=== PATIENT | male | born 1955 | race Caucasian/White ===

== ENCOUNTER 2017-08-16 17:47 | Inpatient (IN) | payer MEDICARE, MEDICAID ==
[2017-08-16] VITALS (14 sets, daily range): BP systolic 82–119; BP diastolic 55–82
[~2017-08-16] VITALS: Ht 182.9 cm; Wt 75.3 kg
[~2017-08-16 17:47] MED LIST: AC325T; ARPZ10T; ASP325T; BNZT2T; CLC500CT; CLN.2T; CTLP20T; DVL125C; DXCC100CRX; FAMO20TA13; FLT05NA16; HCT25T; IBP200T; KCL10CCR; LOPE2CAP29; LRT10T; LRZ1T; MILK OF MAGNESIA; OLN5T; QTP25T; SENOKOT 8.6 MG; [UNRECOGNIZED DRUG - CODE]
[2017-08-16] MEDS ORDERED: NS IV 1000 ML 1,000 ML ONE (18:00)
[2017-08-16 18:03] LABS: ABG BASE EXCESS -0.8 MMOL/L (-2.5-2.5); ABG OXYGEN SATURATION 95 % (94-100); ABG PCO2 39 MMHG (35-45); ABG PO2 88 MMHG (79-93); ABG TCO2 24.1 MMOL/L (21.0-31.0)
[2017-08-16 18:04] LABS: ALLENS TEST POSITIVE; INSPIRED O2 10 L; PATIENT TEMP 101.8; VENTILATOR NO
[2017-08-16] MEDS: NS IV 1000 ML 2,500 ML IV PRN ×2 (18:05→19:20)
[2017-08-16 18:15] LABS: BASOPHILS % (AUTO) 0 % (0-10); EOSINOPHILS % (AUTO) 0 % (0-10); HEMATOCRIT 38 % (40-54); HEMOGLOBIN 12.7 G/DL (13.3-17.7); LYMPHOCYTES % (AUTO) 14 % (12-44); MEAN CORPUSCULAR HEMOGLOBIN 30 PG (25-34); MEAN CORPUSCULAR HGB CONC 33 G/DL (32-36); MEAN CORPUSCULAR VOLUME 91 FL (80-99); MEAN PLATELET VOLUME 10.9 FL (7.4-10.4); MONOCYTES # (AUTO) 1.1 X 10^3 (0.0-1.0); MONOCYTES % (AUTO) 15 % (0-12); NEUTROPHILS # (AUTO) 5.1 X 10^3 (1.8-7.8); NEUTROPHILS % (AUTO) 71 % (42-75); PLATELET COUNT 109 10^3/uL (130-400); RED BLOOD COUNT 4.19 10^6/uL (4.35-5.85); RED CELL DISTRIBUTION WIDTH 16.7 % (10.0-14.5); WHITE BLOOD COUNT 7.3 10^3/uL (4.3-11.0)
[2017-08-16] MEDS ORDERED: PIPERACILLIN/TAZOBACTAM 3.375 GM in D5W 100 ML IVPB 100 ML IV ONE (18:15)
[2017-08-16] MEDS ORDERED: RT-ALBUTEROL/IPRATROPIUM 3 ML (DUONEB) VIAL INH ONE (18:15)
[2017-08-16 18:18] LABS: CLARITY,URINE CLEAR; COLOR,URINE YELLOW; GLUCOSE, URINE (UA) NEGATIVE (NEGATIVE); KETONES,URINE 2+ (NEGATIVE); LEUKOCYTE ESTERASE ,URINE 1+ (NEGATIVE); NITRITE,URINE NEGATIVE (NEGATIVE); PH,URINE 6 (5-9); PROTEIN,URINE 2+ (NEGATIVE); UROBILINOGEN,URINE 12 MG/DL (NORMAL)
[2017-08-16] MEDS ORDERED: PIPERACILLIN/TAZO 3.375 GM VIAL (ZOSYN) IV ONE (18:18)
[2017-08-16] MEDS ORDERED: D5W 100 ML IVPB 100 ML IV ONE (18:19)
[2017-08-16 18:29] LABS: ALANINE AMINOTRANSFERASE 29 U/L (0-55); ALBUMIN 3.5 GM/DL (3.2-4.5); ALKALINE PHOSPHATASE 65 U/L (40-136); BUN/CREATININE RATIO 26; CALCIUM 9.4 MG/DL (8.5-10.1); CARBON DIOXIDE 23 MMOL/L (21-32); CHLORIDE 106 MMOL/L (98-107); CREATININE SERUM 0.85 MG/DL (0.60-1.30); GFR ESTIMATED > 60; GLUCOSE 112 MG/DL (70-105); POTASSIUM 4.1 MMOL/L (3.6-5.0); SODIUM 140 MMOL/L (135-145); TOTAL PROTEIN 7.3 GM/DL (6.4-8.2)
[2017-08-16 18:30] LABS: INR 1.3 (0.8-1.4); PROTHROMBIN TIME PATIENT 15.7 SEC (12.2-14.7)
[2017-08-16 18:33] LABS: AMORPHOUS SEDIMENT,UR FEW AMOR URATES /LPF; RBC,URINE 0-2 /HPF; WBC,URINE 0-2 /HPF
[2017-08-16 18:34] LABS: BILIRUBIN,URINE 2+ (NEGATIVE)
--- NOTE | 2017-08-16 18:35 | ED General ---
General Chief Complaint: General Problems/Pain Stated Complaint: FEVER Nursing Triage Note: PT TO [facility] WITH CC OF FEVER AND WEAKNESS. PT LETHARGIC ON ARRIVAL. Nursing Sepsis Screen: No Definite Risk Source of Information: Patient Exam Limitations: No Limitations History of Present Illness Date Seen by Provider: Aug 16, 2017 Time Seen by Provider: 18:00 Initial Comments Here with report of fever and weakness from the skilled nursing. Patient apparently was lethargic on arrival. Seen briefly by outgoing provider and had initiation of BiPAP which seems to have improved his course overall. Patient was reportedly feverish at the skilled nursing and did receive Tylenol. He was 100.1 here and that has subsequently gone down. Does have history of previous stroke and is unable to provide his own history. Seems to be in less distress now per nursing. Grier catheter in place draining dark yellow urine. EMS initiated 1 L normal saline and second liter has been initiated. Timing/Duration: 12 Hours, Getting Worse Severity: Moderate, Severe Associated Systoms: Fever/Chills, Shortness of Air Allergies and Home Medications Allergies Coded Allergies: No Known Drug Allergies (Verified Allergy, Unknown, 07/25/07) Patient Home Medication List Home Medication List Reviewed: Yes Review of Systems Constitutional: see HPI, fever, weakness Unable to complete review of systems due to underlying medical condition and history of previous stroke Past Yirsefo-Gbjzir-Enrqis Hx Past Med/Social Hx: Reviewed Nursing Past Med/Soc Hx Patient Social History Alcohol Use: Denies Use Recreational Drug Use: No (UNKNOWN) Smoking Status: Current Someday Smoker Type Used: Cigarettes Recent Foreign Travel: No Contact w/Someone Who Travel: No Recent Infectious Disease Expo: No Past Medical History Surgeries: Yes (decubitus ulcer debridement) Abdominal (feeding tube placement and removal), Defibrillator, Pacemaker Respiratory: No Cardiac: Yes (LBBB) Atrial Fibrillation, Cardiomyopathy Neurological: Yes (CEREBRAL INFARCTION, RT SIDE WEAKNESS) Stroke Genitourinary: Yes Kidney Infection, UTI-Chronic Gastrointestinal: Yes Musculoskeletal: Yes (GENERALIZED MUSCLE WEAKNESS/RT SIDE WEAKNESS) Diabetes, Non-Insulin dep Cancer: No Psychosocial: Yes (PARANOID) Family Medical History Reviewed Nursing Family Hx Family, past surgical and medical history obtained from records as patient is unable to answer questions. Physical Exam-Suspected Sepsis Physical Exam Vital Signs Vital Signs - First Documented 08/16/17 08/16/17 17:48 17:54 Temp 100.1 Pulse 80 Resp 14 B/P (MAP) 119/66 (83) Pulse Ox 92 O2 Delivery Nasal Cannula O2 Flow Rate 6.00 Capillary Refill : Less Than 3 Seconds Blood Pressure Mean: 94 Height, Weight, BMI Height: 6', 0" Weight: 175lbs oz, [id number] Method:Estimated ,BMI General Appearance: No Apparent Distress, Chronically ill HEENT: PERRL/EOMI, Pharynx Normal Neck: Non Tender, Supple Respiratory: Normal Breath Sounds; No Wheezing; Other (evaluated while patient on BiPAP) Cardiovascular: Regular Rate, Rhythm, No Murmur Gastrointestinal: Non Tender, Soft Back: Normal Inspection, No CVA Tenderness, No Vertebral Tenderness Extremity: Normal Capillary Refill, Normal Range of Motion, Non Tender Neurologic/Psychiatric: Alert, Oriented x3 Skin: normal color, warm/dry Focused Exam Lactate Level 08/16/17 17:52: Lactic Acid Level 2.15*H Lactic Acid Level Laboratory Tests Test 08/16/17 17:52 Lactic Acid Level 2.15 MMOL/L (0.50-2.00) *H Progress/Results/Core Measures Suspected Sepsis Recent Fever Within 48 Hours: Yes Infection Criteria Present: Suspected New Infection New/Unexplained Altered Menta: Yes Sepsis Screen: No Definite Risk SIRS Temperature:97.6 Pulse: 80 Respiratory Rate: 26 Laboratory Tests 08/16/17 17:52: White Blood Count 7.3 Blood Pressure 119 /82 Mean: 94 08/16/17 17:52: Lactic Acid Level 2.15*H Laboratory Tests 08/16/17 17:52: Creatinine 0.85, INR Comment 1.3, Platelet Count 109L, Total Bilirubin 1.0 Results/Orders Lab Results Laboratory Tests Test 08/16/17 17:52 08/16/17 17:53 08/16/17 17:55 Range/Units White Blood Count 7.3 4.3-11.0 10^3/uL Red Blood Count 4.19 L 4.35-5.85 10^6/uL Hemoglobin 12.7 L 13.3-17.7 G/DL Hematocrit 38 L 40-54 % Mean Corpuscular Volume 91 80-99 FL Mean Corpuscular Hemoglobin 30 25-34 PG Mean Corpuscular Hemoglobin Concent 33 32-36 G/DL Red Cell Distribution Width 16.7 H 10.0-14.5 % Platelet Count 109 L 130-400 10^3/uL Mean Platelet Volume 10.9 H 7.4-10.4 FL Neutrophils (%) (Auto) 71 42-75 % Lymphocytes (%) (Auto) 14 12-44 % Monocytes (%) (Auto) 15 H 0-12 % Eosinophils (%) (Auto) 0 0-10 % Basophils (%) (Auto) 0 0-10 % Neutrophils # (Auto) 5.1 1.8-7.8 X 10^3 Lymphocytes # (Auto) 1.0 1.0-4.0 X 10^3 Monocytes # (Auto) 1.1 H 0.0-1.0 X 10^3 Eosinophils # (Auto) 0.0 0.0-0.3 10^3/uL Basophils # (Auto) 0.0 0.0-0.1 10^3/uL Prothrombin Time 15.7 H 12.2-14.7 SEC INR Comment 1.3 0.8-1.4 Activated Partial Thromboplast Time 35 24-35 SEC Sodium Level 140 135-145 MMOL/L Potassium Level 4.1 3.6-5.0 MMOL/L Chloride Level 106 98-107 MMOL/L Carbon Dioxide Level 23 21-32 MMOL/L Anion Gap 11 5-14 MMOL/L Blood Urea Nitrogen 22 H 7-18 MG/DL Creatinine 0.85 0.60-1.30 MG/DL Estimat Glomerular Filtration Rate > 60 BUN/Creatinine Ratio 26 Glucose Level 112 H 70-105 MG/DL Lactic Acid Level 2.15 *H 0.50-2.00 MMOL/L Calcium Level 9.4 8.5-10.1 MG/DL Total Bilirubin 1.0 0.1-1.0 MG/DL Aspartate Amino Transf (AST/SGOT) 54 H 5-34 U/L Alanine Aminotransferase (ALT/SGPT) 29 0-55 U/L Alkaline Phosphatase 65 40-136 U/L Troponin I < 0.30 <0.30 NG/ML Total Protein 7.3 6.4-8.2 GM/DL Albumin 3.5 3.2-4.5 GM/DL Blood Gas Puncture Site RIGHT RADIAL Blood Gas Patient Temperature 101.8 Arterial Blood pH 7.40 7.37-7.43 Arterial Blood Partial Pressure CO2 39 35-45 MMHG Arterial Blood Partial Pressure O2 88 79-93 MMHG Arterial Blood HCO3 23 23-27 MMOL/L Arterial Blood Total CO2 24.1 21.0-31.0 MMOL/L Arterial Blood Oxygen Saturation 95 94-100 % Arterial Blood Base Excess -0.8 -2.5-2.5 MMOL/L Singh Test POSITIVE Blood Gas Ventilator Setting NO Blood Gas Inspired Oxygen 10 L Urine Color YELLOW Urine Clarity CLEAR Urine pH 6 5-9 Urine Specific [place] 1.020 1.016-1.022 Urine Protein 2+ H NEGATIVE Urine Glucose (UA) NEGATIVE NEGATIVE Urine Ketones 2+ H NEGATIVE Urine Nitrite NEGATIVE NEGATIVE Urine Bilirubin 2+ H NEGATIVE Urine Urobilinogen 12 H NORMAL MG/DL Urine Leukocyte Esterase 1+ H NEGATIVE Urine RBC (Auto) 2+ H NEGATIVE Urine RBC 0-2 /HPF Urine WBC 0-2 /HPF Urine Crystals PRESENT H /LPF Urine Amorphous Sediment FEW MAYNOR URATES H /LPF Urine Bacteria NONE /HPF Urine Casts NONE /LPF Urine Mucus NEGATIVE /LPF Urine Culture Indicated NO Medications Given in ED Current Medications Medications Dose Ordered Sig/Haritha Route Start Time Stop Time Status Last Admin Dose Admin Albuterol/ Ipratropium 3 ml ONCE ONCE INH 08/16/17 18:15 08/16/17 18:16 DC 08/16/17 17:50 3 ML Piperacillin Sod/ Tazobactam Sod 3.375 gm/Dextrose 100 ml @ 200 mls/hr ONCE ONCE IV 08/16/17 18:15 08/16/17 18:44 DC 08/16/17 18:26 200 MLS/HR Vital Signs/I&O 08/16/17 08/16/17 08/16/17 08/16/17 17:48 17:50 17:54 18:20 Temp 100.1 97.6 Pulse 80 71 Resp 14 18 B/P (MAP) 119/66 (83) 119/82 (94) Pulse Ox 92 97 92 100 O2 Delivery Nasal Cannula OxyMask Nasal Cannula NIV Bilevel O2 Flow Rate 6.00 10.00 08/16/17 18:21 Pulse 80 Resp 26 Pulse Ox 97 O2 Flow Rate 45.00 Capillary Refill : Less Than 3 Seconds Blood Pressure Mean: 94 Progress Note : Progress Note Seen and evaluated. Second liter of IV fluid has been initiated with normal saline 1 L bolus. Sepsis order set initiated. Blood pressure is improved. Lactic acid noted to be 2.15. We have initiated Zosyn 3.375 g IV after the second blood culture was completed. Patient doing much better on BiPAP. 1834: Heart rate 71 and paced with O2 sat 99 percent and blood pressure 111/71. 1927 : Patient getting another 500 normal saline which will fulfill the 30 mL/kg requirement based on weight totaling 2500 mL. I have discussed the case with Dr. BERRIOS and he accepts patient for admission, inpatient status for left lower lobe pneumonia and sepsis patient is improving currently. Patient's sister is here who is his DP away. I have verified DO NOT RESUSCITATE status with her. PATIENT answers. Patient to be admitted to ICU. Patient's blood pressure remains above 90 systolic and 65 map. Her blood pressure 107/61 with heart rate of 76 and satting 95 percent. Overall doing better. I attest to focused exam at this time. ECG Initial ECG Impression Date: Aug 16, 2017 Initial ECG Impression Time: 18:12 Initial ECG Rate: 79 Comment Atrial sensed ventricular paced rhythm. No evidence of ST elevation NE. No previous available for comparison. Interpreted by me. Diagnostic Imaging Diagonstic Imaging: Xray Plain Films/CT/US/NM/MRI: chest Comments NAME: EDYTA HODGSON MED REC#: [id number] PT STATUS: REG ER : 1955 PHYSICIAN: HASMUKH CHATMAN MD ADMIT DATE: 08/16/17/ER Signed Date of Exam: 08/16/17 CHEST 1 VIEW, AP/PA ONLY INDICATION: Fever and weakness. Time of exam: 6:24 PM No prior studies are available for comparison. Cardiac pacemaker is in place. There is minimal scarring or atelectasis in the left base. Calcified granuloma right upper lobe is noted. No failure is detected. No effusion or pneumothorax is seen. IMPRESSION: Minimal left basilar scarring or atelectasis. The study is otherwise unremarkable. Dictated by: Dictated on workstation # [id number] Dict: 08/16/171834 Trans: 08/16/171846 Interpreted by: ARTUR MOMIN MD Electronically signed by: ARTUR MOMIN MD 08/16/171846 Departure Communication (Admissions) Time/Spoke to Admitting Phy: 19:20 Impression Primary Impression: Left lower lobe pneumonia Qualified Codes: J18.1 - Lobar pneumonia, unspecified organism Additional Impression: Sepsis Qualified Codes: A41.9 - Sepsis, unspecified organism Disposition: ADMITTED INPATIENT Condition: Stable Admissions Decision to Admit Reason: Admit from ER (General) Decision to Admit/Date: Aug 16, 2017 Time/Decision to Admit Time: 19:20 Departure-Patient Inst. Referrals: DAMON CAUSEY DO (PCP/Family) Primary Care Physician KAUSHIK RATLIFF MD Aug 16, 2017 18:35
--- NOTE | 2017-08-16 18:46 | Diagnostic Imaging Report ---
INDICATION: Fever and weakness. Time of exam: 6:24 PM No prior studies are available for comparison. Cardiac pacemaker is in place. There is minimal scarring or atelectasis in the left base. Calcified granuloma right upper lobe is noted. No failure is detected. No effusion or pneumothorax is seen. IMPRESSION: Minimal left basilar scarring or atelectasis. The study is otherwise unremarkable. Dictated by: Dictated on workstation # [id number]
[2017-08-16 20:35] LABS: ABG BASE EXCESS -1.9 MMOL/L (-2.5-2.5); ABG OXYGEN SATURATION 98 % (94-100); ABG PCO2 37 MMHG (35-45); ABG PO2 89 MMHG (79-93); ABG TCO2 23.5 MMOL/L (21.0-31.0)
[2017-08-16 20:37] LABS: ALLENS TEST YES-POS; INSPIRED O2 40%
[2017-08-16 20:38] LABS: PATIENT TEMP 97.7; VENTILATOR NO
[2017-08-16] MEDS ORDERED: VANCOMYCIN 1 GM/NS 250 ML IVPB IV SCH ×2 (21:30)
[2017-08-16] MEDS ORDERED: NS IV 1000 ML 2,381.37 ML IV PRN (21:30)
[2017-08-16] MEDS: NOREPINEPHRINE 4 MG in NS (IVPB) 250 ML IV SCH (21:58)
[2017-08-16] MEDS: NS IV 1000 ML 1,000 ML IV SCH (21:58)
[2017-08-16] MEDS ORDERED: RT-ALBUTEROL/IPRATROPIUM 3 ML (DUONEB) VIAL INH PRN (22:15)
[2017-08-17] VITALS (46 sets, daily range): BP systolic 77–140; BP diastolic 47–83
[2017-08-17] MEDS: PIPERACILLIN/TAZO 3.375 GM/D5W 100 ML IV SCH ×6 (00:15→16:31)
[2017-08-17] MEDS: NS IV 1000 ML 1,000 ML IV SCH ×6 (01:30→20:33)
[2017-08-17 03:37] LABS: BASOPHILS % (AUTO) 0 % (0-10); EOSINOPHILS % (AUTO) 1 % (0-10); HEMATOCRIT 34 % (40-54); LYMPHOCYTES # (AUTO) 1.4 X 10^3 (1.0-4.0); LYMPHOCYTES % (AUTO) 22 % (12-44); MEAN CORPUSCULAR HEMOGLOBIN 30 PG (25-34); MEAN CORPUSCULAR HGB CONC 32 G/DL (32-36); MEAN CORPUSCULAR VOLUME 93 FL (80-99); MEAN PLATELET VOLUME 11.2 FL (7.4-10.4); MONOCYTES # (AUTO) 0.8 X 10^3 (0.0-1.0); MONOCYTES % (AUTO) 12 % (0-12); NEUTROPHILS # (AUTO) 4.1 X 10^3 (1.8-7.8); NEUTROPHILS % (AUTO) 65 % (42-75); PLATELET COUNT 77 10^3/uL (130-400); RED BLOOD COUNT 3.63 10^6/uL (4.35-5.85); WHITE BLOOD COUNT 6.3 10^3/uL (4.3-11.0)
[2017-08-17 03:58] LABS: ALANINE AMINOTRANSFERASE 20 U/L (0-55); ALBUMIN 2.6 GM/DL (3.2-4.5); ALKALINE PHOSPHATASE 47 U/L (40-136); BILIRUBIN,TOTAL 0.8 MG/DL (0.1-1.0); BUN/CREATININE RATIO 26; CALCIUM 8.1 MG/DL (8.5-10.1); CARBON DIOXIDE 20 MMOL/L (21-32); CHLORIDE 113 MMOL/L (98-107); GFR ESTIMATED > 60; GLUCOSE 85 MG/DL (70-105); MAGNESIUM 1.2 MG/DL (1.8-2.4); PHOSPHORUS 2.8 MG/DL (2.3-4.7); SODIUM 141 MMOL/L (135-145); TOTAL PROTEIN 5.5 GM/DL (6.4-8.2)
[2017-08-17] MEDS: KCL 20 MEQ TAB (K-DUR) PO SCH (04:01)
[2017-08-17] MEDS: MAGNESIUM 1 GM/100 ML IVPB 100 ML IV SCH ×5 (04:01→08:08)
[2017-08-17] MEDS: POTASSIUM CL 10MEQ/50ML IVPB 50 ML IV SCH (04:01)
[2017-08-17] MEDS: NOREPINEPHRINE 4 MG in NS (IVPB) 250 ML IV SCH (04:48)
--- NOTE | 2017-08-17 05:49 | Pulmonary Consultation ---
History of Present Illness History of Present Illness Date of Consultation 08/17/17 05:43 Time Seen by Provider: 08:50 Date of Admission History of Present Illness 61yo hx of CVA, dementia, and methamphetamine use presented from [facility] secondary fever and progressive SOB via EMS. PT was found to have LLL pneumonia. HE reqired BiPAP on presentation. Pt has also became hypotensive and is currently requiring Levophed. Allergies and Home Medications Allergies Coded Allergies: No Known Drug Allergies (Verified , 07/25/07) Home Medications Acetaminophen 325 Mg Tablet, 650 MG PO Q6H PRN for PAIN-MILD OR TEMPATURE, ( Reported) Alprazolam 0.5 Mg Tablet, 0.5 MG PO Q8H PRN for ANXIETY, (Reported) Aspirin 325 Mg Tablet.dr, 325 MG PO DAILY, (Reported) Benztropine Mesylate 2 Mg Tablet, 2 MG PO DAILY, (Reported) Carvedilol 6.25 Mg Tablet, 6.25 MG PO DAILY, (Reported) HOLD FO SBP =/<100 DBP =/<50 Divalproex Sodium 500 Mg Tablet.dr, 1,500 MG PO HS, (Reported) TAKES 3 (500MG) TABLETS Guaifenesin/Dextromethorphan 118 Ml Liquid, 10 ML PO Q6H PRN for COUGH, ( Reported) Levetiracetam 500 Mg Tablet, 500 MG PO BID, (Reported) Loratadine 10 Mg Tablet, 10 MG PO DAILY PRN for CONGESTION, (Reported) Mag Hydrox/Aluminum Hyd/Simeth 355 Ml Oral.susp, 30 ML PO Q4H PRN for HEARTBURN, (Reported) Metformin HCl 1,000 Mg Tablet, 1,000 MG PO BID, (Reported) Olanzapine 15 Mg Tablet, 15 MG PO DAILY, (Reported) Omeprazole 20 Mg Capsule.dr, 20 MG PO DAILY, (Reported) Polyethylene Glycol 3350 17 Gm Powd.pack, 17 GM PO DAILY, (Reported) Sertraline HCl 100 Mg Tablet, 100 MG PO DAILY, (Reported) Past Pnjeydx-Jpczjn-Zwzifw Hx Past Med/Social Hx: Reviewed Nursing Past Med/Soc Hx Patient Social History Alcohol Use: Denies Use Recreational Drug Use: Yes Drug of Choice: HX OF METH USE Smoking Status: Current Someday Smoker Type Used: Cigarettes Recent Foreign Travel: No Contact w/Someone Who Travel: No Recent Infectious Disease Expo: No Recent Hopitalizations: Yes (APRIL 2017 IN [place]) Immunizations Up To Date Date of Pneumonia Vaccine: Nov 07, 2016 Seasonal Allergies Seasonal Allergies: No Past Medical History Surgeries: Yes (decubitus ulcer debridement) Abdominal (feeding tube placement and removal), Defibrillator, Pacemaker Respiratory: Yes Pneumonia Currently Using CPAP: No Currently Using BIPAP: No Cardiac: Yes (LBBB) Atrial Fibrillation, Cardiomyopathy Neurological: Yes (CEREBRAL INFARCTION, RT SIDE WEAKNESS) Stroke Sexually Transmitted Disease: No HIV/AIDS: No Genitourinary: Yes Kidney Infection, UTI-Chronic Gastrointestinal: Yes (FEEDING TUBE (INSTERTED AND REMOVED)) Musculoskeletal: Yes (GENERALIZED MUSCLE WEAKNESS/RT SIDE WEAKNESS) Endocrine: Yes Diabetes, Non-Insulin dep HEENT: No Cancer: No Psychosocial: Yes (PARANOID) Integumentary: No Blood Disorders: No (HX OF HEP C) Adverse Reaction/Blood Tranf: No Family Medical History Reviewed Nursing Family Hx Family, past surgical and medical history obtained from records as patient is unable to answer questions. Review of Systems Time Seen by Provider: 05:48 Exam Exam Vital Signs Date Time Temp Pulse Resp B/P (MAP) Pulse Ox O2 Delivery O2 Flow Rate FiO2 08/17/17 05:30 60 14 105/63 (77) 94 High Flow N/C 2.00 08/17/17 05:15 59 18 93/58 (70) 95 High Flow N/C 2.00 08/17/17 05:00 59 17 119/68 (85) 97 High Flow N/C 2.00 08/17/17 04:45 60 13 92/67 (75) 99 High Flow N/C 2.00 08/17/17 04:30 60 9 86/56 (66) 96 High Flow N/C 2.00 08/17/17 04:15 60 11 104/61 (75) 97 High Flow N/C 2.00 08/17/17 04:00 60 16 101/62 (75) 99 High Flow N/C 2.00 08/17/17 03:56 99 High Flow N/C 2.00 08/17/17 03:54 97.3 08/17/17 03:45 60 18 97/68 (78) 98 High Flow N/C 2.00 08/17/17 03:30 60 13 99/64 (76) 99 High Flow N/C 2.00 08/17/17 03:15 60 12 102/62 (75) 99 High Flow N/C 2.00 08/17/17 03:00 60 15 96/60 (72) 99 High Flow N/C 2.00 08/17/17 02:45 62 14 88/61 (70) 98 High Flow N/C 2.00 08/17/17 02:30 70 12 89/59 (69) 97 High Flow N/C 2.00 08/17/17 02:15 70 14 99/59 (72) 96 High Flow N/C 2.00 08/17/17 02:00 62 19 103/63 (76) 95 High Flow N/C 2.00 08/17/17 01:45 60 22 100/61 (74) 94 High Flow N/C 2.00 08/17/17 01:30 59 10 98/58 (71) 95 High Flow N/C 2.00 08/17/17 01:15 60 15 88/55 (66) 97 High Flow N/C 2.00 08/17/17 01:00 60 08/17/17 01:00 60 17 86/59 (68) 95 High Flow N/C 2.00 08/17/17 00:45 60 18 88/49 (62) 96 High Flow N/C 2.00 08/17/17 00:30 60 16 94/57 (69) 98 High Flow N/C 2.00 08/17/17 00:15 60 13 90/55 (67) 99 High Flow N/C 2.00 08/17/17 00:00 60 9 94/59 (71) 98 High Flow N/C 2.00 08/16/17 23:49 97.3 08/16/17 23:46 98 High Flow N/C 2.00 08/16/17 23:45 60 12 101/69 (80) 98 High Flow N/C 2.00 08/16/17 23:30 60 10 107/69 (82) 98 High Flow N/C 2.00 08/16/17 23:15 60 10 108/75 (86) 98 High Flow N/C 2.00 08/16/17 23:00 60 12 94/65 (75) 96 High Flow N/C 2.00 08/16/17 22:45 60 12 94/67 (76) 95 High Flow N/C 2.00 08/16/17 22:30 71 11 82/55 (64) 96 High Flow N/C 2.00 08/16/17 22:15 60 14 103/61 (75) 95 High Flow N/C 2.00 08/16/17 22:14 High Flow N/C 2.00 08/16/17 22:13 94 High Flow N/C 2.00 08/16/17 22:13 96 High Flow N/C 4.00 08/16/17 22:00 67 10 97/61 (73) 96 High Flow N/C 4.00 08/16/17 21:45 67 13 109/61 (77) 97 High Flow N/C 4.00 08/16/17 21:30 60 13 99/63 (75) 99 High Flow N/C 4.00 08/16/17 21:15 60 13 106/64 (78) 99 High Flow N/C 4.00 08/16/17 21:00 100 High Flow N/C 6.00 08/16/17 21:00 60 100 08/16/17 21:00 60 13 107/67 (80) 100 High Flow N/C 4.00 08/16/17 20:44 68 08/16/17 20:40 98.3 89 102/63 (76) High Flow N/C 6.00 08/16/17 20:34 97.7 70 25 97/81 97 NIV Bilevel 08/16/17 19:36 78 20 99 45.00 08/16/17 18:21 80 26 97 45.00 08/16/17 18:20 97.6 71 18 119/82 (94) 100 NIV Bilevel 08/16/17 17:54 100.1 80 14 119/66 (83) 92 Nasal Cannula 08/16/17 17:50 97 OxyMask 10.00 08/16/17 17:48 92 Nasal Cannula 6.00 I & O 08/17/17 07:00 Intake Total 7950 ml Output Total 650 ml Balance 7300 ml PULEXAM Height: 6', 0.00" Weight: 165lbs 0.0oz, [id number] Method:Estimated ,21.7BMI General Appearance: No Apparent Distress, Chronically ill HEENT: PERRL/EOMI, Pharynx Normal Neck: Non Tender, Supple Respiratory: Normal Breath Sounds; No Wheezing; Other (evaluated while patient on BiPAP) Cardiovascular: Regular Rate, Rhythm, No Murmur Capillary Refill: Less Than 3 Seconds Extremity: Normal Capillary Refill, Normal Range of Motion, Non Tender Neurologic/Psychiatric: Alert, Oriented x3 Results Lab Laboratory Tests 08/16/17 17:52 08/17/17 03:05 Assessment/Plan Assessment/Plan -Pneumonia LLL on admission - with severe sepsis -question aspiration pneumonia -Consult speech for swallow eval -Zosyn and vanco -Foy culture -Hypotension -Levopohed -- will D/C -IVF metabolic lactic acidosis -IVF Thrombocytopenia -MOnitor HX of CVA - pt has had PEG tube in the past. 255 NEELAM BENAVIDEZ DO Aug 17, 2017 05:49
[2017-08-17] MEDS ORDERED: HYDROCORTISONE 100 MG/2 ML (Solu-CORTEF) VIAL IV ONE (06:15)
[2017-08-17] MEDS ORDERED: NS IV 1000 ML 500 ML IV SCH (06:15)
[2017-08-17] MEDS ORDERED: NS IV 500 ML 500 ML ONE (06:21)
[2017-08-17] MEDS ORDERED: HYDROCORTISONE 100 MG/2 ML (Solu-CORTEF) VIAL ONE (06:22)
--- NOTE | 2017-08-17 07:40 | History & Physical-Hospitalist ---
History of Present Illness HPI/Chief Complaint Pt is a 61yoCm with a PMH of CVA with right sided deficit who presented to the ER for AMS. He groans only on exam to physicial stimuli so is unable to provide me any history. All history if obtained from review of records and from discussion with his NH. At baseline he is nearly aphasic but is oriented x2. He does not stand and is dependent on a clemente. No concerns about aspiration from nursing staff there. The nurse I spoke to believes he was febrile and "not acting right" but was uable to clarify what that meant. There is a note she read to me that stated he was noticed to have a cough and fever yesterday and when the digital production artist physician was called he was directed to the ER. Per NH his normal blood pressure range is in the 90-100s systolic and 50s-60s diastolic. Source: patient Date Seen 08/17/17 Time Seen by Provider: 07:20 Attending Physician Reilly Marino MD PCP Pito Gallardo DO Referring Physician Date of Admission Aug 16, 2017 at 19:40 Home Medications & Allergies Home Medications Reviewed patient Home Medication Reconciliation performed by pharmacy medication reconciliations broadcast technician and/or nursing. Patients Allergies have been reviewed. Allergies Allergies Coded Allergies No Known Drug Allergies (Verified07/25/07) Past Hjhzgzs-Joqgcz-Ckwxlm Hx Past Med/Social Hx: Reviewed Nursing Past Med/Soc Hx Patient Social History Employed/Student: retired Alcohol Use: Denies Use Recreational Drug Use: Yes Drug of Choice: HX OF METH USE Smoking Status: Current Someday Smoker Type Used: Cigarettes Physical Abuse Screen: No Sexual Abuse: No Recent Foreign Travel: No Contact w/other who traveled: No Recent Hopitalizations: Yes (APRIL 2017 IN [place]) Recent Infectious Disease Expo: No Immunizations Up To Date Date of Pneumonia Vaccine: Nov 07, 2016 Seasonal Allergies Seasonal Allergies: No Past Medical History Surgeries: Abdominal (feeding tube placement and removal), Defibrillator, Pacemaker Currently Using CPAP: No Currently Using BIPAP: No Cardiac: Atrial Fibrillation, Cardiomyopathy Neurological: Stroke Sexually Transmitted Disease: No HIV/AIDS: No Genitourinary: Kidney Infection, UTI-Chronic Endocrine: Diabetes, Non-Insulin dep History of Blood Disorders: No (HX OF HEP C) Adverse Reaction to Blood [place]: No Family History Reviewed Nursing Family Hx Family, past surgical and medical history obtained from records as patient is unable to answer questions. Review of Systems ROS-Unable to Obtain: clinical condition Constitutional: see HPI Physical Exam Physical Exam Vital Signs Vital Signs - First Documented 08/16/17 08/16/17 17:48 17:54 Temp 100.1 Pulse 80 Resp 14 B/P (MAP) 119/66 (83) Pulse Ox 92 O2 Delivery Nasal Cannula O2 Flow Rate 6.00 Capillary Refill : Less Than 3 Seconds Height, Weight, BMI Height: 6', 0.00" Weight: 165lbs 0.0oz, [id number] Method:Estimated ,21.7BMI General Appearance: Chronically ill, Mild Distress Respiratory: No Accessory Muscle Use, No Respiratory Distress, Rhonci Cardiovascular: Regular Rate, Rhythm, No Murmur Gastrointestinal: Normal Bowel Sounds, Non Tender, Soft Extremity: Normal Capillary Refill, Non Tender, No Calf Tenderness, No Pedal Edema Neurologic/Psychiatric: Other (arouses to physicial stimuli otherwise somnolent ) Skin: Normal Color; No Mottled, No Petechia Results Results/Procedures Labs Laboratory Tests 08/16/17 17:52 08/17/17 03:05 Patient resulted labs reviewed. Imaging: Reviewed Imaging Films, Reviewed Imaging Report Assessment/Plan Admission Diagnosis Septic Shock Admission Status: Inpatient Order (span 2 midnights) Reason for Inpatient Admission: pressors, ICU stay Diagnosis/Problems Diagnosis/Problems (1) Septic shock Assessment & Plan: RML PNA on XR from this AM Progressed to shock overnight requiring levophed to maintain BP Cultures drawn in Er awaiting results (2) CVA, old, aphasia Assessment & Plan: nearly aphasia at baseline MS reports he mostly grunts or shakes head yes and no has right sided weakness (3) CHF (congestive heart failure) Status: Chronic Assessment & Plan: Unknown if systolic or diastolic Monitor for signs of heart failure given fluid bolus Has defibrillator in place Discussed with sister- has history of [place] Qualifiers: Heart failure type: unspecified Heart failure chronicity: chronic Qualified Codes: I50.9 - Heart failure, unspecified (4) Counseling regarding end of life decision making Assessment & Plan: Discussed with sister He has been progressively getting worse of the past year and has lost around 50lbs since april Discussed critical illness currently and if no improvement consider comfort measures only Would likely benefit from hospice as outpatient Palliative care consulted, appreciate assistance Clinical Quality Measures DVT/VTE Risk/Contraindication: Risk Factor Score Per Nursin RFS Level Per Nursing on Admit: 4+=Very High JUSTINO SANDERS MD Aug 17, 2017 07:40
[2017-08-17] MEDS: RT-ALBUTEROL/IPRATROPIUM 3 ML (DUONEB) VIAL INH SCH ×4 (07:50→19:10)
--- NOTE | 2017-08-17 08:52 | Diagnostic Imaging Report ---
INDICATION: Followup pneumonia. TIME OF EXAM: 3:07 AM Comparison is made with prior exam from one day earlier. FINDINGS: The heart size is stable. Cardiac pacemaker remains in place. There is some increasing infiltrate or atelectasis in the right base medially. Right hemidiaphragm is mildly elevated. The mid and upper lung abreu are clear. No effusion or pneumothorax is seen. IMPRESSION: Increasing infiltrate or atelectasis in the right base when compared with examination one day earlier. Dictated by: Dictated on workstation # [id number]
[2017-08-17] MEDS: VANCOMYCIN 1250 MG/NS 250 ML IVPB IV SCH ×4 (08:56→20:32)
[2017-08-17] MEDS: ENOXAPARIN 40 MG/0.4 ML (LOVENOX) SYR SC SCH (09:06)
[2017-08-17] MEDS ORDERED: MAG355OR16 PO (09:38)
[2017-08-17] MEDS ORDERED: OMEP20CA12 PO (09:38)
[2017-08-17] MEDS ORDERED: OLAN15TA3 PO (09:38)
[2017-08-17] MEDS ORDERED: DIVA-76 PO (09:38)
[2017-08-17] MEDS ORDERED: BENZ2TAB6 PO (09:38)
[2017-08-17] MEDS ORDERED: METF10002 PO (09:38)
[2017-08-17] MEDS ORDERED: ASPI325T32 PO (09:38)
[2017-08-17] MEDS ORDERED: CARV6.25 PO (09:38)
[2017-08-17] MEDS ORDERED: ACET325T49 PO (09:38)
[2017-08-17] MEDS ORDERED: POLY17PO6 PO (09:38)
[2017-08-17] MEDS ORDERED: SERT100T PO (09:38)
[2017-08-17] MEDS ORDERED: LEVE500T99 PO (09:38)
[2017-08-17] MEDS ORDERED: LORA10TA7 PO (09:38)
[2017-08-17] MEDS ORDERED: ALPR0.5T PO (09:38)
[2017-08-17] MEDS ORDERED: GUAI-557 PO (09:38)
[2017-08-17] MEDS ORDERED: NICOTINE 21 MG (NICODERM) PATCH ONE (20:26)
[2017-08-17] MEDS ORDERED: NICOTINE 21 MG (NICODERM) PATCH TD ONE (20:30)
[2017-08-18] VITALS (15 sets, daily range): BP systolic 90–139; BP diastolic 58–90
[2017-08-18] MEDS: NOREPINEPHRINE 4 MG in NS (IVPB) 250 ML IV SCH (01:30)
[2017-08-18] MEDS: PIPERACILLIN/TAZO 3.375 GM/D5W 100 ML IV SCH ×6 (01:36→16:24)
[2017-08-18] MEDS: NS IV 1000 ML 1,000 ML IV SCH ×2 (01:36→04:33)
[2017-08-18 04:06] LABS: BASOPHILS % (AUTO) 0 % (0-10); EOSINOPHILS % (AUTO) 1 % (0-10); HEMATOCRIT 33 % (40-54); HEMOGLOBIN 10.9 G/DL (13.3-17.7); LYMPHOCYTES # (AUTO) 1.3 X 10^3 (1.0-4.0); LYMPHOCYTES % (AUTO) 24 % (12-44); MEAN CORPUSCULAR HEMOGLOBIN 30 PG (25-34); MEAN CORPUSCULAR HGB CONC 33 G/DL (32-36); MEAN CORPUSCULAR VOLUME 92 FL (80-99); MONOCYTES # (AUTO) 0.5 X 10^3 (0.0-1.0); MONOCYTES % (AUTO) 10 % (0-12); NEUTROPHILS # (AUTO) 3.6 X 10^3 (1.8-7.8); NEUTROPHILS % (AUTO) 66 % (42-75); PLATELET COUNT 99 10^3/uL (130-400); RED BLOOD COUNT 3.59 10^6/uL (4.35-5.85); RED CELL DISTRIBUTION WIDTH 16.4 % (10.0-14.5); WHITE BLOOD COUNT 5.5 10^3/uL (4.3-11.0)
[2017-08-18 04:26] LABS: ALANINE AMINOTRANSFERASE 18 U/L (0-55); ALBUMIN 2.6 GM/DL (3.2-4.5); ALKALINE PHOSPHATASE 48 U/L (40-136); BILIRUBIN,TOTAL 0.6 MG/DL (0.1-1.0); BUN/CREATININE RATIO 16; CALCIUM 8.1 MG/DL (8.5-10.1); CARBON DIOXIDE 19 MMOL/L (21-32); CHLORIDE 113 MMOL/L (98-107); CREATININE SERUM 0.67 MG/DL (0.60-1.30); GFR ESTIMATED > 60; GLUCOSE 124 MG/DL (70-105); MAGNESIUM 1.7 MG/DL (1.8-2.4); PHOSPHORUS 1.8 MG/DL (2.3-4.7); POTASSIUM 3.2 MMOL/L (3.6-5.0); SODIUM 139 MMOL/L (135-145); TOTAL PROTEIN 5.6 GM/DL (6.4-8.2)
[2017-08-18] MEDS ORDERED: NS IV 1000 ML 1,000 ML IV SCH (04:34)
[2017-08-18] MEDS: MAGNESIUM 1 GM/100 ML IVPB 100 ML IV SCH ×3 (04:43→06:03)
[2017-08-18] MEDS: POTASSIUM CL 10MEQ/50ML IVPB 50 ML IV SCH (04:43)
[2017-08-18] MEDS: KCL 20 MEQ TAB (K-DUR) PO SCH (04:44)
[2017-08-18] MEDS ORDERED: POTASSIUM PHOSPHATE INJ 30 MM in NS (IVPB) 250 ML IV ONE (05:45)
--- NOTE | 2017-08-18 05:46 | Pulmonary Progress Note ---
Subjective Time Seen by Provider: 05:52 Subjective/Events-last exam Pt is doing better. No complications noted. Sepsis Event Evaluation Height, Weight, BMI Height: 6'0.00" Weight: 165lbs.0.0oz.74.935426dg; 21.7 BMI Method:Estimated Focused Exam Lactate Level 08/16/17 17:52: Lactic Acid Level 2.15*H 08/16/17 20:20: Lactic Acid Level 1.56 Exam Exam Vital Signs Date Time Temp Pulse Resp B/P (MAP) Pulse Ox O2 Delivery O2 Flow Rate FiO2 08/18/17 04:27 98.3 08/18/17 04:00 95 Room Air 08/18/17 03:00 65 13 124/67 (86) 94 Room Air 08/18/17 02:00 59 14 110/66 (81) 94 Room Air 08/18/17 01:00 60 08/18/17 01:00 60 15 109/63 (78) Room Air 08/18/17 00:00 60 12 106/58 (74) 91 Room Air 08/18/17 00:00 97.8 08/18/17 00:00 92 Room Air 08/17/17 23:00 60 16 101/55 (70) 91 Room Air 08/17/17 22:00 64 13 107/62 (77) 95 Room Air 08/17/17 21:00 64 21 104/54 (71) 93 Room Air 08/17/17 20:00 64 16 95/54 (68) 94 Room Air 08/17/17 20:00 92 Room Air 08/17/17 19:40 98.1 Room Air 08/17/17 19:10 92 08/17/17 19:00 70 08/17/17 19:00 67 14 93/75 (81) 89 Room Air 08/17/17 18:00 77 23 109/83 (92) 94 Room Air 08/17/17 17:46 Room Air 08/17/17 17:00 60 16 107/65 (79) 94 High Flow N/C 2.00 08/17/17 16:05 97.8 08/17/17 16:00 59 14 89/56 (67) 92 High Flow N/C 2.00 08/17/17 16:00 94 High Flow N/C 2.00 08/17/17 15:00 73 14 103/63 (76) 95 High Flow N/C 2.00 08/17/17 14:59 94 High Flow N/C 2.00 08/17/17 14:00 60 16 103/64 (77) 94 High Flow N/C 2.00 08/17/17 13:00 60 08/17/17 13:00 68 14 96/62 (73) 96 High Flow N/C 2.00 08/17/17 12:15 95 High Flow N/C 2.00 08/17/17 12:07 97.9 08/17/17 12:00 71 14 86/51 (63) 92 High Flow N/C 2.00 08/17/17 11:19 95 High Flow N/C 2.00 08/17/17 11:00 71 16 91/55 (67) 94 High Flow N/C 2.00 08/17/17 10:00 60 14 86/54 (65) 94 High Flow N/C 2.00 08/17/17 09:00 65 12 100/59 (73) 95 High Flow N/C 2.00 08/17/17 08:00 78 14 122/71 (88) 96 High Flow N/C 2.00 08/17/17 08:00 92 High Flow N/C 2.00 08/17/17 07:51 94 High Flow N/C 2.00 08/17/17 07:50 97.3 70 14 124/71 (88) 92 High Flow N/C 2.00 08/17/17 07:00 59 20 85/49 (61) 92 High Flow N/C 2.00 08/17/17 06:59 59 08/17/17 06:45 62 15 85/51 (62) 95 High Flow N/C 2.00 08/17/17 06:30 60 12 86/50 (62) 96 High Flow N/C 2.00 08/17/17 06:15 60 13 77/47 (57) 93 High Flow N/C 2.00 08/17/17 06:00 59 9 85/50 (62) 95 High Flow N/C 2.00 08/17/17 05:45 59 17 109/62 (78) 95 High Flow N/C 2.00 I & O 08/18/17 07:00 Intake Total 2912.5 ml Output Total 1475 ml Balance 1437.5 ml Height & Weight Height: 6'0.00" Weight: 165lbs.0.0oz.74.546407ev; 21.7 BMI Method:Estimated General Appearance: No Apparent Distress, WD/WN, Chronically ill HEENT: PERRL/EOMI, Pharynx Normal Neck: Non Tender, Supple Respiratory: No Accessory Muscle Use, No Respiratory Distress, Rhonci Cardiovascular: Regular Rate, Rhythm, No Murmur Capillary Refill: Less Than 3 Seconds Extremity: Normal Capillary Refill, Non Tender, No Calf Tenderness, No Pedal Edema Neurologic/Psychiatric: Other (arouses to physicial stimuli otherwise somnolent ) Skin: Normal Color; No Mottled, No Petechia Lymphatic: No Adenopathy Results Lab Laboratory Tests 08/16/17 17:52 08/17/17 03:05 08/18/17 03:10 Assessment/Plan Assessment/Plan -Pneumonia LLL on admission - with severe sepsis -question aspiration pneumonia -pt passed bedside swallow eval -Zosyn and vanco -Foy culture -Hypotension-- resolved metabolic lactic acidosis -IVF hypophos/hypokalemia -replace Thrombocytopenia -MOnitor HX of CVA - pt has had PEG tube in the past. Pt is doing better will transfer to the 4th floor. NEELAM BENAVIDEZ DO Aug 18, 2017 05:46
[2017-08-18] MEDS ORDERED: KCL 20 MEQ TAB (K-DUR) PO ONE ×2 (06:00→08:00)
[2017-08-18] MEDS: RT-ALBUTEROL/IPRATROPIUM 3 ML (DUONEB) VIAL INH SCH ×4 (06:17→19:58)
[2017-08-18] MEDS ORDERED: TROUGH ORDER-PHARMACY XX ONE (08:00)
[2017-08-18] MEDS: NICOTINE 21 MG (NICODERM) PATCH TD SCH (08:07)
[2017-08-18] MEDS: ENOXAPARIN 40 MG/0.4 ML (LOVENOX) SYR SC SCH (08:07)
--- NOTE | 2017-08-18 12:22 | Diagnostic Imaging Report ---
INDICATION: Pneumonia, sepsis.. TECHNIQUE: Single view chest 3:30 AM. CORRELATION STUDY: 08/17/2017 FINDINGS: Left-sided pacemaker is present. Heart size is enlarged. Mediastinum is prominent. Vasculature appears improved. The perihilar infiltrates and/or edema also is improved and diminished but does persist. Slightly more focal infiltrate-like density in the medial right lung base also slightly improved. IMPRESSION: 1. Vascular congestion overall improved from prior study. Additionally, improved aeration of the lung abreu with perihilar and basilar infiltrates and/or edema having slightly improved. Dictated by: Dictated on workstation # [id number]
[2017-08-18] MEDS: VANCOMYCIN 1250 MG/NS 250 ML IVPB IV SCH ×2 (13:54)
--- NOTE | 2017-08-18 14:28 | Progress Note-Hospitalist ---
Subjective HPI/CC On Admission Date Seen by Provider: Aug 18, 2017 Time Seen by Provider: 07:20 Pt is a 61yoCm with a PMH of CVA with right sided deficit who presented to the ER for AMS. He groans only on exam to physicial stimuli so is unable to provide me any history. All history if obtained from review of records and from discussion with his NH. At baseline he is nearly aphasic but is oriented x2. He does not stand and is dependent on a clemente. No concerns about aspiration from nursing staff there. The nurse I spoke to believes he was febrile and "not acting right" but was uable to clarify what that meant. There is a note she read to me that stated he was noticed to have a cough and fever yesterday and when the learning operations specialist physician was called he was directed to the ER. Per NH his normal blood pressure range is in the 90-100s systolic and 50s-60s diastolic. Subjective/Events-last exam Pt much more alert today. Answers few questions but did state "yes" to feeling better. Shook head no about other concerns. Focused Exam Lactate Level 08/16/17 17:52: Lactic Acid Level 2.15*H 08/16/17 20:20: Lactic Acid Level 1.56 Objective Exam Vital Signs Vital Signs Date Time Temp Pulse Resp B/P (MAP) Pulse Ox O2 Delivery O2 Flow Rate FiO2 08/18/17 14:11 95 Room Air 08/18/17 13:00 124 32 08/18/17 07:00 98.0 08/18/17 06:19 2.00 Capillary Refill : Less Than 3 Seconds General Appearance: No Apparent Distress, Chronically ill Respiratory: Lungs Clear, No Respiratory Distress Cardiovascular: Regular Rate, Rhythm, No Murmur Gastrointestinal: Normal Bowel Sounds, Soft Neurologic/Psychiatric: Alert, Disoriented (as baseline) Results/Procedures Lab Laboratory Tests 08/18/17 03:10 Patient resulted labs reviewed. Imaging: Reviewed Imaging Films, Reviewed Imaging Report Assessment/Plan Assessment and Plan Assess & Plan/Chief Complaint Septic Shock Critical Care Critical Care: Critically Ill Patient Diagnosis/Problems Diagnosis/Problems (1) Septic shock Assessment & Plan: RML PNA on XR Shock resolved- off pressors since yesterday MRSA screen negative- will DC Vanc Continue Zosyn Blood cultures growing coag neg staph in one tube-likely contaminate (2) CVA, old, aphasia Assessment & Plan: nearly aphasic at baseline per NH NH reports he mostly grunts or shakes head yes and no Said some words today has right sided weakness (3) CHF (congestive heart failure) Status: Chronic Assessment & Plan: Unknown if systolic or diastolic Monitor for signs of heart failure given fluid bolus Has defibrillator in place Discussed with sister- has history of [place] Qualifiers: Heart failure type: unspecified Heart failure chronicity: chronic Qualified Codes: I50.9 - Heart failure, unspecified (4) Counseling regarding end of life decision making Assessment & Plan: Discussed with sister He has been progressively getting worse of the past year and has lost around 50lbs since april Discussed critical illness currently and if no improvement consider comfort measures only Would likely benefit from hospice as outpatient Palliative care consulted, appreciate assistance Clinical Quality Measures DVT/VTE Risk/Contraindication: Risk Factor Score Per Nursin RFS Level Per Nursing on Admit: 4+=Very High JUSTINO SANDERS MD Aug 18, 2017 2:28 pm
--- NOTE | 2017-08-18 15:40 | Physical Therapy Evaluation ---
PT Evaluation-General Medical Diagnosis Admission Date Aug 16, 2017 at 19:40 Medical Diagnosis: LLL pneumonia; sepsis Onset Date: Aug 16, 2017 Therapy Diagnosis Therapy Diagnosis: weakness Height/Weight Height (Feet): 6 Height (Inches): 0.00 Weight (Pounds): 170 Weight (Ounces): 0.0 Precautions Precautions/Isolations: Fall Prevention, Standard Precautions Weight Bear Status Right Lower Extremity: Right Weight Bearing/Tolerated Left Lower Extremity: Left Weight Bearing/Tolerated Referral Physician: [place] Reason for Referral: Evaluation/Treatment Medical History Pertinent Medical History: CVA (rigth side weakness) Current History Admitted with LLL pneumonia and sepsis Reviewed History: Yes Social History Home: Snf Prior/[facility] Prior Level of Function Functional [place] Measure 0=Not Assessed/NA 4=Minimal Assistance 1=Total Assistance 5=Supervision or Setup 2=Maximal Assistance 6=Modified [place] 3=Moderate Assistance 7=Complete [place] Pt is wheelchair bound. Physician note reports pt is a clemente transfer; son reported to nursing that in the past he has been able to perform a SPT. PT Evaluation-Current Subjective Agrees to participate with therapy. Objective Patient Orientation: Person, Confused, Non-Verbal/Aphasic (one word answers) Problem Solving: Fair Attachments: Grier Catheter, IV ROM/Strength ROM Lower Extremities Left LE WNL; right LE WNL AAROM Strength Lower Extremities Left LE appears to be functional; unable to specifically test right . Integumentary/Posture Integumentary refer to nursing notes. Bowel Incontinence: Yes Bladder Incontinence: Grier Cath Posture rounded shoulders and head forward in sitting; heavy lean to his left in sitting. Neuromuscular (Tone, Coordination, Reflexes) impaired on the right with intentional movement; R U/LE tremors noted as well with intentional movements as well as L LE. Pt has normal coordinated movement with the left UE Sensory Vision: Functional Hearing: Functional Sensation Right Lower Extremit: Impaired Sensation Left Lower Extremity: Impaired Transfers Functional [place] Measure 0=Not Assessed/NA 4=Minimal Assistance 1=Total Assistance 5=Supervision or Setup 2=Maximal Assistance 6=Modified [place] 3=Moderate Assistance 7=Complete [place] Transfers (B, C, W/C) (FIM): 1 Scootin Rollin Supine to/from Sit: 1 Pt requires assist of 2 for all bed mobility and to sit EOB. Max assist to maintain EOB balance and leans heavilty to the left. Tremors noted in sitting initially, settle after a few minutes but retropulsive as well. Unable to attempt to stand due to poor sitting balance. Balance Sitting Static: Poor Sitting Dynamic: Poor Treatment Pt sat EOB with dep assist to transition to this point. Max assist to maintain sitting EOB; unable to attempt standing. Assessment/Needs Presents with impaired functional mobility. Likely he is near or at his baseline based on review of chart. He will benefit from additional assessment to ensure mobility needs are met while he is hospitalized and address positioning or other services that may be indicated. Rehab Potential: Guarded PT Business Solutions Consultant Goals Business Solutions Consultant Goals PT Retirement Goals Time Frame: Aug 24, 2017 Transfers (B,C,W/C) (FIM): 2 PT Plan Problem List Problem List: Activity Tolerance, Functional Strength, Safety, Transfer, Bed Mobility Treatment/Plan Treatment Plan: Continue Plan of Care Treatment Plan: Bed Mobility, Education, Functional Activity Adi, Functional Strength, Safety, Transfers Treatment Duration: Aug 24, 2017 Frequency: 5 times per week Estimated Hrs Per Day: .25 hour per day Patient and/or Family Agrees t: Yes Safety Risks/Education Patient Education: Safety Issues Teaching Recipient: Patient Teaching Methods: Discussion Response to Teaching: Reinforcement Needed Time/GCodes Time In: 1510 Time Out: 1530 Total Billed Treatment Time: 20 Total Billed Treatment visit EVL 20 BRAD ROGERS PT Aug 18, 2017 15:40
[2017-08-19] MEDS: PIPERACILLIN/TAZO 3.375 GM/D5W 100 ML IV SCH ×2 (00:02)
[2017-08-19 00:21] VITALS: BP 117/70
[2017-08-19] MEDS ORDERED: VANCOMYCIN 1250 MG/NS 250 ML IVPB IV SCH ×2 (02:00)
[2017-08-19 04:20] VITALS: BP 123/77
[2017-08-19 06:21] LABS: BASOPHILS % (AUTO) 0 % (0-10); EOSINOPHILS # (AUTO) 0.1 10^3/uL (0.0-0.3); EOSINOPHILS % (AUTO) 1 % (0-10); HEMATOCRIT 33 % (40-54); HEMOGLOBIN 10.9 G/DL (13.3-17.7); LYMPHOCYTES # (AUTO) 1.4 X 10^3 (1.0-4.0); LYMPHOCYTES % (AUTO) 27 % (12-44); MEAN CORPUSCULAR HEMOGLOBIN 30 PG (25-34); MEAN CORPUSCULAR HGB CONC 33 G/DL (32-36); MEAN CORPUSCULAR VOLUME 90 FL (80-99); MEAN PLATELET VOLUME 10.4 FL (7.4-10.4); MONOCYTES # (AUTO) 0.8 X 10^3 (0.0-1.0); MONOCYTES % (AUTO) 16 % (0-12); NEUTROPHILS # (AUTO) 2.9 X 10^3 (1.8-7.8); NEUTROPHILS % (AUTO) 56 % (42-75); PLATELET COUNT 131 10^3/uL (130-400); RED BLOOD COUNT 3.68 10^6/uL (4.35-5.85); RED CELL DISTRIBUTION WIDTH 16.6 % (10.0-14.5); WHITE BLOOD COUNT 5.2 10^3/uL (4.3-11.0)
[2017-08-19] MEDS ORDERED: KCL 20 MEQ TAB (K-DUR) PO ONE ×2 (06:30→06:38)
[2017-08-19] MEDS ORDERED: FUROSEMIDE 40 MG/4 ML INJ (LASIX) IVP ONE (06:30)
--- NOTE | 2017-08-19 06:30 | Pulmonary Progress Note ---
Subjective Time Seen by Provider: 06:35 Subjective/Events-last exam Pt appears to be much improved. No complications noted. Sepsis Event Evaluation Height, Weight, BMI Height: 6'0.00" Weight: 166lbs. 0.0oz. 75.290209qy; 21.7 BMI Method:Estimated Focused Exam Lactate Level 08/16/17 17:52: Lactic Acid Level 2.15*H 08/16/17 20:20: Lactic Acid Level 1.56 Exam Exam Vital Signs Date Time Temp Pulse Resp B/P (MAP) Pulse Ox O2 Delivery O2 Flow Rate FiO2 08/19/17 04:20 98.9 76 17 123/77 (92) 93 Room Air 08/19/17 00:21 97.8 79 20 117/70 (86) 98 Room Air 08/18/17 20:15 Room Air 08/18/17 20:00 95 Room Air 08/18/17 19:15 98.9 77 20 113/67 (82) 96 Room Air 08/18/17 16:50 98.9 74 20 126/68 (87) 96 Room Air 08/18/17 14:11 95 Room Air 08/18/17 13:00 124 32 96 Room Air 08/18/17 12:00 79 23 100/61 (74) 96 Room Air 08/18/17 11:00 70 20 117/73 (88) 95 Room Air 08/18/17 10:51 99 Room Air 08/18/17 10:00 67 25 90/68 (75) 98 Room Air 08/18/17 09:00 62 13 125/90 (102) 98 Room Air 08/18/17 08:00 60 13 111/75 (87) 97 Room Air 08/18/17 07:43 98 Room Air 08/18/17 07:00 80 08/18/17 07:00 98.0 70 16 127/69 (88) 98 Room Air I & O 08/19/17 07:00 Intake Total 3912.5 ml Output Total 5400 ml Balance -1487.5 ml Height & Weight Height: 6'0.00" Weight: 166lbs. 0.0oz. 75.711382fe; 21.7 BMI Method:Estimated General Appearance: No Apparent Distress, Chronically ill HEENT: PERRL/EOMI, Pharynx Normal Neck: Non Tender, Supple Respiratory: Lungs Clear, No Respiratory Distress Cardiovascular: Regular Rate, Rhythm, No Murmur Capillary Refill: Less Than 3 Seconds Extremity: Normal Capillary Refill, Non Tender, No Calf Tenderness, No Pedal Edema Neurologic/Psychiatric: Alert, Disoriented (as baseline) Skin: Normal Color; No Mottled, No Petechia Lymphatic: No Adenopathy Results Lab Laboratory Tests 08/18/17 03:10 08/19/17 05:50 Assessment/Plan Assessment/Plan -Pneumonia LLL on admission - with severe sepsis -question aspiration pneumonia -pt passed bedside swallow eval -Zosyn and vanco-- Change to Augmentin PO -Will give lasix x 1 with 40meq of KDUR -Pt is ok from pulmonary standpoint for discharge with Augmentin x 5 more days. -Foy culture HX of CVA - pt has had PEG tube in the past. 232 NEELAM BENAVIDEZ DO Aug 19, 2017 06:30
[2017-08-19] MEDS ORDERED: FUROSEMIDE 40 MG/4 ML INJ (LASIX) ONE (06:38)
[2017-08-19] MEDS: RT-ALBUTEROL/IPRATROPIUM 3 ML (DUONEB) VIAL INH SCH ×2 (06:43→11:32)
[2017-08-19 06:44] LABS: ALANINE AMINOTRANSFERASE 25 U/L (0-55); ALBUMIN 2.8 GM/DL (3.2-4.5); ALKALINE PHOSPHATASE 59 U/L (40-136); BILIRUBIN,TOTAL 0.8 MG/DL (0.1-1.0); BUN/CREATININE RATIO 8; CALCIUM 8.4 MG/DL (8.5-10.1); CARBON DIOXIDE 21 MMOL/L (21-32); CHLORIDE 109 MMOL/L (98-107); CREATININE SERUM 0.62 MG/DL (0.60-1.30); GFR ESTIMATED > 60; GLUCOSE 92 MG/DL (70-105); MAGNESIUM 1.4 MG/DL (1.8-2.4); PHOSPHORUS 3.1 MG/DL (2.3-4.7); POTASSIUM 3.4 MMOL/L (3.6-5.0); SODIUM 138 MMOL/L (135-145); TOTAL PROTEIN 5.8 GM/DL (6.4-8.2)
[2017-08-19] MEDS ORDERED: FUROSEMIDE 40 MG/4 ML INJ (LASIX) IVP NR (06:45)
[2017-08-19] MEDS ORDERED: KCL 20 MEQ TAB (K-DUR) PO NR (06:46)
[2017-08-19] MEDS ORDERED: AUGMENTIN 500 MG TAB (AMOXICILLIN/CLAVULANATE) PO SCH (07:00)
--- NOTE | 2017-08-19 08:22 | Diagnostic Imaging Report ---
INDICATION: Pneumonia COMPARISON: 08/18/2017 FINDINGS: Single frontal view of the chest demonstrates normal heart size and pulmonary vascularity. The lungs continue to show gradual interval improved aeration. Left-sided pacemaker is again noted.. No large pleural effusion or pneumothorax is seen. The visualized osseous structures show no acute abnormalities. IMPRESSION: 1. Continued improved aeration. Dictated by: Dictated on workstation # [id number]
[2017-08-19] MEDS ORDERED: AMOX1TAB11 PO (08:28)
[2017-08-19 08:38] VITALS: BP 107/59
--- NOTE | 2017-08-19 08:45 | Discharge Inst-Simple/Standard ---
Discharge Inst-Standard Patient Instructions/Follow Up Plan of Care/Instructions/FU: Please continue to take your medications as written. Please schedule a follow up visit with Dr Cruz within the next week. Activity as Tolerated: Yes Discharge Diet: No Restrictions Return to The Hospital For: SOB, confusion, fever unresponsive to Tylenol or Ibuprofen, if you feel you are getting worse. JUSTINO SANDERS MD Aug 19, 2017 08:44
--- NOTE | 2017-08-19 08:47 | Discharge Summary-Hospitalist ---
Diagnosis/Chief Complaint Date of Admission Aug 16, 2017 at 19:40 Date of Discharge Discharge Date: Aug 19, 2017 Admission Diagnosis Septic Shock Discharge Diagnosis (1) Septic shock Status: Resolved Assessment & Plan: RML PNA on XR Shock resolved- off pressors since yesterday MRSA screen negative- will DC Vanc Continue Zosyn Blood cultures growing coag neg staph in one tube-likely contaminate (2) CVA, old, aphasia Assessment & Plan: nearly aphasic at baseline per [facility] reports he mostly grunts or shakes head yes and no Said some words today has right sided weakness (3) CHF (congestive heart failure) Status: Chronic Assessment & Plan: Unknown if systolic or diastolic Monitor for signs of heart failure given fluid bolus Has defibrillator in place Discussed with sister- has history of [place] (4) Counseling regarding end of life decision making Assessment & Plan: Discussed with sister He has been progressively getting worse of the past year and has lost around 50lbs since april Discussed critical illness currently and if no improvement consider comfort measures only Would likely benefit from hospice as outpatient Palliative care consulted, appreciate assistance Discharge Summary Procedures/Consulations Dr Ofelia Herzog Discharge Physical Exam Allergies: Coded Allergies: No Known Drug Allergies (Verified , 07/25/07) Vitals & I&Os Vital Signs Date Time Temp Pulse Resp B/P (MAP) Pulse Ox O2 Delivery O2 Flow Rate FiO2 08/19/17 08:38 98.4 81 18 107/59 (75) 92 Room Air 08/18/17 06:19 2.00 General Appearance: Alert Respiratory: Clear to Auscultation Cardiovascular: Regular Rate Hospital Course Pt was admitted for septic shock due to pneumonia. He responded well to antibiotics and was quickly titrated off of vasopressors on the first day of admission. He was transferred out of the ICU and continued to do well and was back to his baseline mentation and was ready for DC back to [place] on day of discharge. He is to complete 5 more day fo Augmentin to complete antibiotic course. Labs (last 24 hrs) Laboratory Tests 08/18/17 11:13: Glucometer 134H 08/18/17 18:01: Glucometer 92 08/18/17 20:48: Glucometer 116H 08/19/17 05:38: Glucometer 106 08/19/17 05:50: White Blood Count 5.2, Red Blood Count 3.68L, Hemoglobin 10.9L, Hematocrit 33L, Mean Corpuscular Volume 90, Mean Corpuscular Hemoglobin 30, Mean Corpuscular Hemoglobin Concent 33, Red Cell Distribution Width 16.6H, Platelet Count 131, Mean Platelet Volume 10.4, Neutrophils (%) (Auto) 56, Lymphocytes (%) (Auto) 27 , Monocytes (%) (Auto) 16H, Eosinophils (%) (Auto) 1, Basophils (%) (Auto) 0, Neutrophils # (Auto) 2.9, Lymphocytes # (Auto) 1.4, Monocytes # (Auto) 0.8, Eosinophils # (Auto) 0.1, Basophils # (Auto) 0.0, Sodium Level 138, Potassium Level 3.4L, Chloride Level 109H, Carbon Dioxide Level 21, Anion Gap 8, Blood Urea Nitrogen 5L, Creatinine 0.62, Estimat Glomerular Filtration Rate > 60, BUN/ Creatinine Ratio 8, Glucose Level 92, Calcium Level 8.4L, Phosphorus Level 3.1, Magnesium Level 1.4L, Total Bilirubin 0.8, Aspartate Amino Transf (AST/SGOT) 55H , Alanine Aminotransferase (ALT/SGPT) 25, Alkaline Phosphatase 59, Total Protein 5.8L, Albumin 2.8L Microbiology 08/16/17 Blood Culture - Preliminary, Resulted No growth 08/16/17 MRSA Screen - Final, Complete MRSA not isolated Patient resulted labs reviewed. Pending Labs Laboratory Tests 08/19/17 05:38: Glucometer 106 08/19/17 05:50: White Blood Count 5.2, Red Blood Count 3.68, Hemoglobin 10.9, Hematocrit 33, Mean Corpuscular Volume 90, Mean Corpuscular Hemoglobin 30, Mean Corpuscular Hemoglobin Concent 33, Red Cell Distribution Width 16.6, Platelet Count 131, Mean Platelet Volume 10.4, Neutrophils (%) (Auto) 56, Lymphocytes (%) (Auto) 27 , Monocytes (%) (Auto) 16, Eosinophils (%) (Auto) 1, Basophils (%) (Auto) 0, Neutrophils # (Auto) 2.9, Lymphocytes # (Auto) 1.4, Monocytes # (Auto) 0.8, Eosinophils # (Auto) 0.1, Basophils # (Auto) 0.0, Sodium Level 138, Potassium Level 3.4, Chloride Level 109, Carbon Dioxide Level 21, Anion Gap 8, Blood Urea Nitrogen 5, Creatinine 0.62, Estimat Glomerular Filtration Rate > 60, BUN/ Creatinine Ratio 8, Glucose Level 92, Calcium Level 8.4, Phosphorus Level 3.1, Magnesium Level 1.4, Total Bilirubin 0.8, Aspartate Amino Transf (AST/SGOT) 55, Alanine Aminotransferase (ALT/SGPT) 25, Alkaline Phosphatase 59, Total Protein 5.8, Albumin 2.8 Imaging: Reviewed Imaging Films, Reviewed Imaging Report Discussion & Recommendations Discharge Planning: >30 minutes discharge planning Discharge Home Medications: Active Scripts Active Reported Zyprexa (Olanzapine) 15 Mg Tablet 15 Mg PO DAILY Zoloft (Sertraline HCl) 100 Mg Tablet 100 Mg PO DAILY Xanax (Alprazolam) 0.5 Mg Tablet 0.5 Mg PO Q8H PRN Tussin Dm Liquid (Guaifenesin/Dextromethorphan) 118 Ml Liquid 10 Ml PO Q6H PRN Omeprazole 20 Mg Capsule.dr 20 Mg PO DAILY Miralax (Polyethylene Glycol 3350) 17 Gm Powd.pack 17 Gm PO DAILY Metformin HCl 1,000 Mg Tablet 1,000 Mg PO BID Maalox Advanced Suspension (Mag Hydrox/Aluminum Hyd/Simeth) 355 Ml Oral.susp 30 Ml PO Q4H PRN Keppra (Levetiracetam) 500 Mg Tablet 500 Mg PO BID Coreg (Carvedilol) 6.25 Mg Tablet 6.25 Mg PO DAILY HOLD FO SBP =/<100 DBP =/<50 Benztropine Mesylate 2 Mg Tablet 2 Mg PO DAILY Acetaminophen 325 Mg Tablet 650 Mg PO Q6H PRN Divalproex Sodium 500 Mg Tablet.dr 1,500 Mg PO HS TAKES 3 (500MG) TABLETS Aspirin EC (Aspirin) 325 Mg Tablet. 325 Mg PO DAILY Loratadine 10 Mg Tablet 10 Mg PO DAILY PRN Instructions to patient/family Please see electronic discharge instructions given to patient. Clinical Quality Measures DVT/VTE Risk/Contraindication: Risk Factor Score Per Nursin RFS Level Per Nursing on Admit: 4+=Very High Problem Qualifiers (1) CHF (congestive heart failure): Heart failure type: unspecified Heart failure chronicity: chronic Qualified Codes: I50.9 - Heart failure, unspecified JUSTINO SANDERS MD Aug 19, 2017 08:47
[2017-08-19] MEDS: NICOTINE 21 MG (NICODERM) PATCH TD SCH (09:06)
[2017-08-19] MEDS: ENOXAPARIN 40 MG/0.4 ML (LOVENOX) SYR SC SCH (09:06)
--- NOTE | 2017-08-19 11:54 | Discharge Inst-Skilled Nursing ---
Discharge Inst-Skilled NF Chief Complaint Pt is a 61yoCm with a PMH of CVA with right sided deficit who presented to the ER for AMS. He groans only on exam to physicial stimuli so is unable to provide me any history. All history if obtained from review of records and from discussion with his NH. At baseline he is nearly aphasic but is oriented x2. He does not stand and is dependent on a clemente. No concerns about aspiration from nursing staff there. The nurse I spoke to believes he was febrile and "not acting right" but was uable to clarify what that meant. There is a note she read to me that stated he was noticed to have a cough and fever yesterday and when the account resolution specialist physician was called he was directed to the ER. Per NH his normal blood pressure range is in the 90-100s systolic and 50s-60s diastolic. Patient Instructions Patient Problems: CVA, Dementia, dysphasia Consult/Follow Up/Orders Skilled NF Admit to: [facility] Certification (SNF) I certify that SNF services are required to be given on an inpatient basis because of the above named patient's need for [facility] care on a continuing basis for the conditions(s) for which he/she was receiving inpatient hospital services prior to his/her transfer to the SNF. Alf Facility Order: Nursing Services, Pet Care Associate-Evaluate & Treat, Physical Therapy-Evaluate & Treat, Speech Language-Evaluate & Treat Discharge Diet: No Restrictions New & Resume Previous Orders Justino Thomas Aug 19, 2017 11:53 JUSTINO THOMAS MD Aug 19, 2017 11:54 am
== END 2017-08-19 13:19 | DRG 871 ==
LOC: EDUNIT# 17:47 → ER 17:49 → ICU 19:40 → 4TH 08-18 13:48
PROVIDERS: ADMIT Internal Medicine; ATTEND Internal Medicine
DX: A41.9 Sepsis, unspecified organism (principal); J18.9 Pneumonia, unspecified organism; E87.2 Acidosis; I42.9 Cardiomyopathy, unspecified; I69.351 Hemiplegia and hemiparesis following cerebral infarction affecting right dominant side; I69.820 Aphasia following other cerebrovascular disease; Z66 Do not resuscitate; I50.9 Heart failure, unspecified; E87.6 Hypokalemia; E83.39 Other disorders of phosphorus metabolism; D69.6 Thrombocytopenia, unspecified; I48.91 Unspecified atrial fibrillation; E11.9 Type 2 diabetes mellitus without complications; F22 Delusional disorders; I44.7 Left bundle-branch block, unspecified; F03.90 Unspecified dementia, unspecified severity, without behavioral disturbance, psychotic disturbance, mood disturbance, and anxiety; F15.90 Other stimulant use, unspecified, uncomplicated; F17.210 Nicotine dependence, cigarettes, uncomplicated; Z79.84 Long term (current) use of oral hypoglycemic drugs; Z87.440 Personal history of urinary (tract) infections; Z95.810 Presence of automatic (implantable) cardiac defibrillator; Z86.19 Personal history of other infectious and parasitic diseases
CPT/HCPCS: 36415; 36600; 71045; 76937; 80053; 80202; 81000; 82805; 82962; 83605; 83735; 84100; 84484; 85025; 85610; 85730; 87040; 87081; 93005; 94640; 94760; 96361; 96365

== ENCOUNTER 2017-10-25 11:49 | Inpatient (IN) | payer MEDICARE, MEDICAID ==
[2017-10-25] VITALS (17 sets, daily range): BP systolic 87–118; BP diastolic 46–97
[~2017-10-25] VITALS: Ht 182.9 cm; Wt 75.3 kg
[~2017-10-25 11:49] MED LIST changes: +ACET325T49 PO; +ALPR0.5T PO; +AMOX1TAB11 PO; +ASPI325T32 PO; +BENZ2TAB6 PO; +CARV6.25 PO; +DIVA-76 PO; +GUAI-557 PO; +LEVE500T99 PO; +LORA10TA7 PO; +MAG355OR16 PO; +METF-399 PO; +OLAN15TA3 PO; +OMEP20CA12 PO; +POLY17PO6 PO; +SERT100T PO
[2017-10-25] MEDS ORDERED: LIDOCAINE UROJET 2% GEL 10 ML PKG ONE (12:56)
[2017-10-25] MEDS ORDERED: CATHETER FLUSH 10 ML SYR IV PRN (13:00)
[2017-10-25] MEDS ORDERED: CATHETER FLUSH 10 ML SYR IV SCH (14:00)
[2017-10-25] MEDS ORDERED: NS IV 1000 ML 1,000 ML IV SCH (14:30)
[2017-10-25 14:32] LABS: BASOPHILS % (AUTO) 0 % (0-10); EOSINOPHILS % (AUTO) 0 % (0-10); HEMATOCRIT 42 % (40-54); HEMOGLOBIN 13.7 G/DL (13.3-17.7); LYMPHOCYTES # (AUTO) 1.1 X 10^3 (1.0-4.0); LYMPHOCYTES % (AUTO) 6 % (12-44); MEAN CORPUSCULAR HEMOGLOBIN 31 PG (25-34); MEAN CORPUSCULAR HGB CONC 33 G/DL (32-36); MEAN CORPUSCULAR VOLUME 94 FL (80-99); MEAN PLATELET VOLUME 10.3 FL (7.4-10.4); MONOCYTES # (AUTO) 3.3 X 10^3 (0.0-1.0); MONOCYTES % (AUTO) 16 % (0-12); NEUTROPHILS # (AUTO) 16.2 X 10^3 (1.8-7.8); NEUTROPHILS % (AUTO) 79 % (42-75); PLATELET COUNT 92 10^3/uL (130-400); RED BLOOD COUNT 4.41 10^6/uL (4.35-5.85); RED CELL DISTRIBUTION WIDTH 16.7 % (10.0-14.5); WHITE BLOOD COUNT 20.6 10^3/uL (4.3-11.0)
[2017-10-25] MEDS: CEFEPIME 2 GM/NS 50 ML IVPB IV SCH ×2 (14:33)
[2017-10-25 14:53] LABS: ALANINE AMINOTRANSFERASE 57 U/L (0-55); ALKALINE PHOSPHATASE 78 U/L (40-136); BUN/CREATININE RATIO 22; CALCIUM 10.1 MG/DL (8.5-10.1); CARBON DIOXIDE 20 MMOL/L (21-32); CHLORIDE 104 MMOL/L (98-107); CREATININE SERUM 1.12 MG/DL (0.60-1.30); GFR ESTIMATED > 60; GLUCOSE 76 MG/DL (70-105); POTASSIUM 4.3 MMOL/L (3.6-5.0); SODIUM 139 MMOL/L (135-145); TOTAL PROTEIN 8.3 GM/DL (6.4-8.2)
--- NOTE | 2017-10-25 14:53 | History & Physical-Hospitalist ---
History of Present Illness HPI/Chief Complaint Pt is a 62yoCM with a PMH of CVA and HTN who presented as a direct admission due to fever and leukocytosis noted at [place]. He mostly grunts during my exam and does not provide any history which per report from [place] is not far from his baseline. Most of the history if obtained from the [place] transfer and from conversation with Cooper Pacheco APRN. He was reportedly at his baseline yesterday but this morning was more lethargic and not communicating with gestures like he normally does. He was found to be febrile and given a one time dose of Levaquin this morning. Labs were done and revealed a leukocytosis of 15k. His BP was 90/40 with hypoxia so decision was made to direct admit for IV abx. Source: patient Date Seen 10/25/17 Time Seen by Provider: 12:30 Attending Physician Justino Sanders MD PCP Cooper Pacheco APRN Referring Physician Date of Admission Oct 25, 2017 at 12:35 pm Home Medications & Allergies Home Medications Reviewed patient Home Medication Reconciliation performed by pharmacy medication reconciliations substation maintenance technician and/or nursing. Patients Allergies have been reviewed. Allergies Allergies Coded Allergies No Known Drug Allergies (Verified07/25/07) Past Ltskdvf-Pwsyqv-Dffllv Hx Past Med/Social Hx: Reviewed Nursing Past Med/Soc Hx Patient Social History Marrital Status: Drug of Choice: HX OF METH USE Smoking Status: Current Everyday Smoker Type Used: Cigarettes Recent Hopitalizations: Yes (APRIL 2017 IN [place], AUGUST 2017) Immunizations Up To Date Date of Pneumonia Vaccine: Nov 07, 2016 Seasonal Allergies Seasonal Allergies: No Past Medical History Surgeries: Abdominal, Defibrillator, Pacemaker Currently Using CPAP: No Currently Using BIPAP: No Cardiac: Atrial Fibrillation, Cardiomyopathy Neurological: Stroke Sexually Transmitted Disease: No HIV/AIDS: No Genitourinary: Kidney Infection, UTI-Chronic Endocrine: Diabetes, Non-Insulin dep History of Blood Disorders: No (HX OF HEP C) Adverse Reaction to Blood [place]: No Family History Family, past surgical and medical history obtained from records as patient is unable to answer questions. Review of Systems ROS-Unable to Obtain: Dementia, dysphasia Constitutional: see HPI Physical Exam Physical Exam Vital Signs Vital Signs - First Documented 10/25/17 12:25 Temp 99.4 Pulse 80 Resp 18 B/P (MAP) 91/63 (72) Pulse Ox 93 O2 Delivery Nasal Cannula O2 Flow Rate 3.00 Capillary Refill : Height, Weight, BMI Height: 6'0.00" Weight: 166lbs. 0.0oz. 75.533663ix; 21.7 BMI Method:Estimated General Appearance: No Apparent Distress, Chronically ill HEENT: PERRL/EOMI, Moist Mucous Membranes Neck: Non Tender, Supple Respiratory: Lungs Clear, No Accessory Muscle Use, No Respiratory Distress, Decreased Breath Sounds Cardiovascular: Regular Rate, Rhythm, No Murmur Gastrointestinal: Normal Bowel Sounds, Non Tender, Soft Extremity: Normal Capillary Refill, No Calf Tenderness Neurologic/Psychiatric: Alert Skin: Normal Color, Warm/Dry Results Results/Procedures Labs Laboratory Tests 10/25/17 14:20 10/26/17 03:00 Patient resulted labs reviewed. Assessment/Plan Admission Diagnosis Severe Sepsis Admission Status: Inpatient Order (span 2 midnights) Reason for Inpatient Admission: iv antibitoics, fluids Diagnosis/Problems Diagnosis/Problems (1) Sepsis Status: Acute Assessment & Plan: Leukocytosis with fever Lactic acid elevated MAP 72 and Lactic less than 4 so no indication for 30cc/kg fluids Blood cultures ordered Cefepime ordered Concern for pneumonia given hypoxia Will get CXR UA ordered as well Qualifiers: Sepsis type: sepsis due to unspecified organism Qualified Codes: A41.9 - Sepsis, unspecified organism (2) CVA, old, aphasia Assessment & Plan: essentially aphasic at baseline per [place] report (3) CHF (congestive heart failure) Status: Chronic Assessment & Plan: Reported in history, no echo on file Monitor volume status closely with IVF Qualifiers: Heart failure type: unspecified Heart failure chronicity: chronic Qualified Codes: I50.9 - Heart failure, unspecified (4) Non-insulin dependent type 2 diabetes mellitus Assessment & Plan: Hold metformin due to lactic acidosis JUSTINO SANDERS MD Oct 25, 2017 14:53
[2017-10-25] MEDS ORDERED: ALBU2.5V4 NEB (14:58)
[2017-10-25] MEDS ORDERED: ACET-2267 PO (14:58)
[2017-10-25] MEDS ORDERED: LEVO750T9 PO (14:58)
--- NOTE | 2017-10-25 15:05 | Diagnostic Imaging Report ---
Indication: Fever and pneumonia. Time of exam: 2:35 PM Correlation is made with prior study 08/19/2017. Heart size is stable. Cardiac pacemaker remains in place. No infiltrates are seen. There is no evidence of congestive failure. No effusion or pneumothorax is seen. Impression: No acute cardiopulmonary process is detected. Dictated by: Dictated on workstation # [id number]
[2017-10-25] MEDS ORDERED: ANTACID SUSP 30 ML UDC (MYLANTA) PO PRN (15:15)
[2017-10-25] MEDS ORDERED: ONDANSETRON 4 MG/2 ML (SDV) Z0FRAN IV PRN (15:15)
[2017-10-25] MEDS ORDERED: MILK OF MAGNESIA 400 MG/5 ML 30 ML UDC PO PRN (15:15)
[2017-10-25] MEDS ORDERED: ACETAMINOPHEN 500 MG TAB (TYLENOL) PO PRN (15:15)
[2017-10-25 15:17] LABS: CLARITY,URINE VERY CLOUDY; COLOR,URINE AMBER; GLUCOSE, URINE (UA) NEGATIVE (NEGATIVE); KETONES,URINE 2+ (NEGATIVE); PH,URINE 5 (5-9); PROTEIN,URINE 3+ (NEGATIVE)
[2017-10-25 15:18] LABS: BACTERIA,URINE FEW /HPF; BILIRUBIN,URINE 2+ (NEGATIVE); LEUKOCYTE ESTERASE ,URINE 3+ (NEGATIVE); NITRITE,URINE POSITIVE (NEGATIVE); UROBILINOGEN,URINE 4 MG/DL (NORMAL); WBC,URINE TNTC /HPF
[2017-10-25 15:18] LABS: BAND NEUTROPHILS 21 %; BASOPHILS % (MANUAL) 0 %; EOSINOPHILS % (MANUAL) 0 %; LYMPHOCYTES % (MANUAL) 3 %; MONOCYTES % (MANUAL) 20 %; NEUTROPHILS % (MANUAL) 56 %; RBC MORPH NORMAL
[2017-10-25 15:19] LABS: TOXIC GRANULATION/VACUOLAZATIO 1+
[2017-10-25] MEDS: NS IV 1000 ML 1,000 ML IV SCH ×2 (16:17→21:46)
[2017-10-25] MEDS: LEVETIRACETAM INJECTION 500 MG in NS (IVPB) 100 ML IV SCH (16:17)
[2017-10-25] MEDS: inSUlin ASPART (NovoLOG) 1 UNIT/0.01 ML (CHARGE PER UNIT) SC SCH ×2 (16:17→21:38)
[2017-10-25] MEDS ORDERED: NS IV 1000 ML 1,000 ML IV ONE (17:00)
[2017-10-25] MEDS ORDERED: LORATADINE (CLARITIN) 10 MG TAB PO PRN (17:00)
[2017-10-25] MEDS ORDERED: FLU QUADRIvalent (5+ YOA) 2018-2019 (AFLURIA) 0.5 ML IM ONE (17:15)
[2017-10-25] MEDS: ACETAMINOPHEN 325 MG TABLET PO PRN (17:15)
[2017-10-25] MEDS ORDERED: NS IV SCH (18:00)
[2017-10-25] MEDS ORDERED: CEFEPIME IV SCH (18:00)
[2017-10-25] MEDS: DIVALPROEX 500 MG DELAYED RELEASE (DEPAKOTE) TAB PO SCH (21:38)
[2017-10-25] MEDS ORDERED: NOREPINEPHRINE 4 MG in NS (IVPB) 250 ML IV SCH (21:45)
[2017-10-26] VITALS (33 sets, daily range): BP systolic 81–124; BP diastolic 39–103
[2017-10-26] MEDS: CEFEPIME 2 GM/NS 50 ML IVPB IV SCH ×4 (01:46→12:31)
[2017-10-26 03:16] LABS: BASOPHILS % (AUTO) 0 % (0-10); EOSINOPHILS % (AUTO) 0 % (0-10); HEMATOCRIT 33 % (40-54); HEMOGLOBIN 10.5 G/DL (13.3-17.7); LYMPHOCYTES # (AUTO) 2.2 X 10^3 (1.0-4.0); LYMPHOCYTES % (AUTO) 13 % (12-44); MEAN CORPUSCULAR HEMOGLOBIN 31 PG (25-34); MEAN CORPUSCULAR HGB CONC 32 G/DL (32-36); MEAN CORPUSCULAR VOLUME 95 FL (80-99); MEAN PLATELET VOLUME 10.4 FL (7.4-10.4); MONOCYTES # (AUTO) 2.7 X 10^3 (0.0-1.0); MONOCYTES % (AUTO) 15 % (0-12); NEUTROPHILS # (AUTO) 12.9 X 10^3 (1.8-7.8); NEUTROPHILS % (AUTO) 72 % (42-75); PLATELET COUNT 84 10^3/uL (130-400); RED BLOOD COUNT 3.43 10^6/uL (4.35-5.85); RED CELL DISTRIBUTION WIDTH 16.7 % (10.0-14.5); WHITE BLOOD COUNT 17.9 10^3/uL (4.3-11.0)
[2017-10-26 03:35] LABS: ALANINE AMINOTRANSFERASE 39 U/L (0-55); ALBUMIN 3.2 GM/DL (3.2-4.5); ALKALINE PHOSPHATASE 55 U/L (40-136); BILIRUBIN,TOTAL 0.8 MG/DL (0.1-1.0); BUN/CREATININE RATIO 25; CALCIUM 8.5 MG/DL (8.5-10.1); CARBON DIOXIDE 21 MMOL/L (21-32); CHLORIDE 109 MMOL/L (98-107); CREATININE SERUM 0.83 MG/DL (0.60-1.30); GFR ESTIMATED > 60; GLUCOSE 81 MG/DL (70-105); MAGNESIUM 1.2 MG/DL (1.8-2.4); PHOSPHORUS 2.4 MG/DL (2.3-4.7); POTASSIUM 3.6 MMOL/L (3.6-5.0); SODIUM 138 MMOL/L (135-145); TOTAL PROTEIN 6.5 GM/DL (6.4-8.2)
[2017-10-26] MEDS: NS IV 1000 ML 1,000 ML IV SCH ×4 (04:45→23:19)
[2017-10-26] MEDS: LEVETIRACETAM INJECTION 500 MG in NS (IVPB) 100 ML IV SCH ×2 (04:52→16:41)
--- NOTE | 2017-10-26 04:55 | Pulmonary Consultation ---
History of Present Illness History of Present Illness Date of Consultation 10/26/17 04:49 Date of Admission History of Present Illness 62yo with hx of CVA presented as direct admit secondary to worsening lethargy, and fever. He was found to have severe sepsis. He was admitted to 4th floor however transferred to ICU secondary to hypotension. Hypotension improved with IVF. I am consulted for ICU management. Unable to obtain full ROS. Allergies and Home Medications Allergies Coded Allergies: No Known Drug Allergies (Verified , 07/25/07) Home Medications Acetaminophen 325 Mg Tablet, 650 MG PO Q6H PRN for PAIN-MILD OR TEMPATURE, ( Reported) Acetaminophen 500 Mg Tablet, 1,000 MG PO TID, (Reported) 5 DAY THEARPY START DATE 10-25-17 Albuterol Sulfate 2.5 Mg/3 Ml Vial.neb, 2.5 MG NEB Q4H, (Reported) Aspirin 325 Mg Tablet.dr, 325 MG PO DAILY, (Reported) Benztropine Mesylate 2 Mg Tablet, 2 MG PO DAILY, (Reported) Carvedilol 6.25 Mg Tablet, 6.25 MG PO DAILY, (Reported) HOLD FOR SBP =/<100 DBP =/<50 Divalproex Sodium 500 Mg Tablet.dr, 1,500 MG PO HS, (Reported) TAKES 3 (500MG) TABLETS Guaifenesin/Dextromethorphan 118 Ml Liquid, 10 ML PO Q6H PRN for COUGH, ( Reported) Levetiracetam 500 Mg Tablet, 500 MG PO BID, (Reported) Levofloxacin 750 Mg Tablet, 750 MG PO DAILY, (Reported) 8 DAY THERAPY START DATE 10-25-17 Loratadine 10 Mg Tablet, 10 MG PO DAILY PRN for CONGESTION, (Reported) Mag Hydrox/Aluminum Hyd/Simeth 355 Ml Oral.susp, 30 ML PO Q4H PRN for HEARTBURN, (Reported) Metformin HCl 1,000 Mg Tablet, 1,000 MG PO BID, (Reported) Olanzapine 15 Mg Tablet, 15 MG PO 1200, (Reported) Omeprazole 20 Mg Capsule.dr, 20 MG PO DAILY, (Reported) Polyethylene Glycol 3350 17 Gm Powd.pack, 17 GM PO HS, (Reported) Sertraline HCl 100 Mg Tablet, 100 MG PO DAILY, (Reported) Past Zzmmqtn-Dtnylf-Hcicff Hx Past Med/Social Hx: Reviewed Nursing Past Med/Soc Hx Patient Social History Alcohol Use: Denies Use Recreational Drug Use: No Drug of Choice: HX OF METH USE Smoking Status: Current Everyday Smoker Type Used: Cigarettes Recent Foreign Travel: No Contact w/Someone Who Travel: No Recent Infectious Disease Expo: No Recent Hopitalizations: Yes (APRIL 2017 IN [place], AUGUST 2017) Immunizations Up To Date PED Vaccines UTD: Yes Date of Pneumonia Vaccine: Nov 07, 2016 Seasonal Allergies Seasonal Allergies: No Past Medical History Surgeries: Yes (decubitus ulcer debridement) Abdominal, Defibrillator, Pacemaker Respiratory: Yes Pneumonia Currently Using CPAP: No Currently Using BIPAP: No Cardiac: Yes (LBBB) Atrial Fibrillation, Cardiomyopathy Neurological: Yes (CEREBRAL INFARCTION, RT SIDE WEAKNESS) Stroke Sexually Transmitted Disease: No HIV/AIDS: No Genitourinary: Yes Kidney Infection, UTI-Chronic Gastrointestinal: Yes (FEEDING TUBE (INSTERTED AND REMOVED)) Musculoskeletal: Yes (GENERALIZED MUSCLE WEAKNESS/RT SIDE WEAKNESS) Endocrine: Yes Diabetes, Non-Insulin dep HEENT: No Cancer: No Psychosocial: Yes (PARANOID) Integumentary: No Blood Disorders: No (HX OF HEP C) Adverse Reaction/Blood Tranf: No Family Medical History Patient reports no known family medical history. Family, past surgical and medical history obtained from records as patient is unable to answer questions. Review of Systems Time Seen by Provider: 05:01 Sepsis Event Evaluation Height, Weight, BMI Height: 6'0.00" Weight: 166lbs. 0.0oz. 75.283458ua; 22.5 BMI Method:Estimated Exam Exam Vital Signs Date Time Temp Pulse Resp B/P (MAP) Pulse Ox O2 Delivery O2 Flow Rate FiO2 10/26/17 02:00 72 18 98/60 (73) 95 Nasal Cannula 3.00 10/26/17 01:30 75 15 95/59 (71) 95 Nasal Cannula 3.00 10/26/17 01:00 93 10/26/17 01:00 93 10 110/59 (76) 95 Nasal Cannula 3.00 10/26/17 00:45 82 12 110/62 (78) 97 Nasal Cannula 3.00 10/26/17 00:30 79 15 94/58 (70) 96 Nasal Cannula 3.00 10/26/17 00:15 79 18 95/60 (72) 96 Nasal Cannula 3.00 9/19/18 00:00 96 Nasal Cannula 3.00 18 00:00 99.9 18 00:00 82 11 86/63 (71) 96 Nasal Cannula 3.00 1818 23:45 80 22 109/97 (101) 97 Nasal Cannula 3.00 1818 23:30 93 13 88/65 (73) 97 Nasal Cannula 3.00 18 23:15 80 10 102/46 (64) 98 Nasal Cannula 3.00 18 23:00 80 10 108/82 (91) 98 Nasal Cannula 3.00 18 22:45 82 12 109/70 (83) 97 Nasal Cannula 3.00 18 22:30 80 18 87/63 (71) 98 Nasal Cannula 3.00 18 22:15 82 26 100/59 (73) 98 Nasal Cannula 3.00 18 22:00 84 15 100/75 (83) 98 Nasal Cannula 3.00 10/25/17 21:45 81 13 102/61 (75) 97 Nasal Cannula 3.00 18 21:30 80 12 88/55 (66) 96 Nasal Cannula 3.00 18 21:15 80 14 96/67 (77) 97 Nasal Cannula 3.00 18 21:00 96 Nasal Cannula 3.00 18 21:00 80 14 96/75 (82) 96 Nasal Cannula 3.00 18 20:59 99.7 18 20:30 80 13 106/62 (77) 97 Nasal Cannula 3.00 18 20:15 82 10 112/93 (99) 98 Nasal Cannula 3.00 18 20:10 88 18 20:00 100.7 115/66 (82) Nasal Cannula 3.00 18 19:40 96 Nasal Cannula 3.00 18 18:18 100.7 18 17:15 101.1 18 15:47 Nasal Cannula 3.00 18 15:25 101.1 81 22 118/62 (80) 96 Nasal Cannula 3.00 10/25/17 12:25 96 Nasal Cannula 3.00 18 12:25 99.4 80 18 91/63 (51) 93 Nasal Cannula I & O 10/26/17 07:00 Intake Total 2155 ml Output Total 695 ml Balance 1460 ml Height & Weight Height: 6'0.00" Weight: 166lbs. 0.0oz. 75.048576le; 22.5 BMI Method:Estimated General Appearance: No Apparent Distress, Chronically ill HEENT: PERRL/EOMI, Moist Mucous Membranes Neck: Non Tender, Supple Respiratory: Lungs Clear, No Accessory Muscle Use, No Respiratory Distress, Decreased Breath Sounds Cardiovascular: Regular Rate, Rhythm, No Murmur Extremity: Normal Capillary Refill, No Calf Tenderness Neurologic/Psychiatric: Alert Skin: Normal Color, Warm/Dry Results Lab Laboratory Tests 10/25/17 14:20 10/26/17 03:00 Assessment/Plan Assessment/Plan Sepsis with pneumonia -Cefepime, -IVF Hypotension - resolved -IVF CHF NIDDM hx of CVA NEELAM BENAVIDEZ DO Oct 26, 2017 04:55
[2017-10-26] MEDS ORDERED: POTASSIUM CL 10MEQ/50ML IVPB 50 ML IV SCH (05:00)
[2017-10-26] MEDS ORDERED: MAGNESIUM 1 GM/100 ML IVPB 100 ML IV SCH (05:00)
[2017-10-26] MEDS: POTASSIUM CL 10MEQ/50ML IVPB 50 ML IV SCH ×4 (05:01→06:57)
[2017-10-26] MEDS: MAGNESIUM 1 GM/100 ML IVPB 100 ML IV SCH ×3 (05:01→05:13)
[2017-10-26] MEDS: inSUlin ASPART (NovoLOG) 1 UNIT/0.01 ML (CHARGE PER UNIT) SC SCH ×4 (05:03→22:31)
[2017-10-26] MEDS ORDERED: POTASSIUM CL 10MEQ/50ML IVPB 200 ML IV ONE (05:03)
[2017-10-26] MEDS ORDERED: MAGNESIUM 1 GM/100 ML IVPB 200 ML IV ONE (05:03)
[2017-10-26] MEDS: KCL 20 MEQ TAB (K-DUR) PO SCH (05:03)
--- NOTE | 2017-10-26 07:40 | Progress Note-Hospitalist ---
Subjective HPI/CC On Admission Date Seen by Provider: Oct 26, 2017 Time Seen by Provider: 07:35 Pt is a 62yoCM with a PMH of CVA and HTN who presented as a direct admission due to fever and leukocytosis noted at [place]. He mostly grunts during my exam and does not provide any history which per report from [place] is not far from his baseline. Most of the history if obtained from the [place] transfer and from conversation with Cooper Pacheco APRN. He was reportedly at his baseline yesterday but this morning was more lethargic and not communicating with gestures like he normally does. He was found to be febrile and given a one time dose of Levaquin this morning. Labs were done and revealed a leukocytosis of 15k. His BP was 90/40 with hypoxia so decision was made to direct admit for IV abx. Subjective/Events-last exam Pt's mental status remains about the same and he does not really participate in conversation. I believe he did say "no" when asked if there was anything I could do for him. Discussed with RN and pt was transferred to ICU overnight for hypotension and lactic acidosis. BPs have responded to fluids though and no pressors where necessitated. Focused Exam Lactate Level 10/25/17 19:10: Lactic Acid Level 6.10*H 10/25/17 21:20: Lactic Acid Level 3.04*H 10/26/17 05:10: Lactic Acid Level 1.71 Lactic Acid Level Laboratory Tests Test 10/26/17 05:10 Lactic Acid Level 1.71 MMOL/L (0.50-2.00) Objective Exam Vital Signs Vital Signs Date Time Temp Pulse Resp B/P (MAP) Pulse Ox O2 Delivery O2 Flow Rate FiO2 10/26/17 07:21 72 10/26/17 06:30 12 95/60 (72) 95 Nasal Cannula 3.00 10/26/17 04:00 99.0 Capillary Refill : General Appearance: No Apparent Distress, Chronically ill Respiratory: Lungs Clear, No Respiratory Distress Cardiovascular: Regular Rate, Rhythm, No Murmur Gastrointestinal: Normal Bowel Sounds, Soft Extremity: No Calf Tenderness, No Pedal Edema Neurologic/Psychiatric: Alert, Aphasia Skin: Normal Color; No Mottled Results/Procedures Lab Laboratory Tests 10/25/17 14:20 10/26/17 03:00 Patient resulted labs reviewed. Assessment/Plan Assessment and Plan Assess & Plan/Chief Complaint Septic Shock Diagnosis/Problems Diagnosis/Problems (1) Sepsis Status: Acute Assessment & Plan: Progressed to Septic shock overnight with lactic acidosis and hypotension Responded to IVF resuscitation Lactic acidosis resolved today Source likely urine Await cultures Continue Cefepime Qualifiers: Sepsis type: sepsis due to unspecified organism Qualified Codes: A41.9 - Sepsis, unspecified organism (2) CVA, old, aphasia Assessment & Plan: essentially aphasic at baseline per [place] report (3) CHF (congestive heart failure) Status: Chronic Assessment & Plan: Reported in history, no echo on file Monitor volume status closely with IVF Qualifiers: Heart failure type: unspecified Heart failure chronicity: chronic Qualified Codes: I50.9 - Heart failure, unspecified (4) Non-insulin dependent type 2 diabetes mellitus Assessment & Plan: Hold metformin due to lactic acidosis Clinical Quality Measures DVT/VTE Risk/Contraindication: Risk Factor Score Per Nursin RFS Level Per Nursing on Admit: 4+=Very High JUSTINO SANDERS MD Oct 26, 2017 7:40 am
--- NOTE | 2017-10-26 08:53 | Diagnostic Imaging Report ---
INDICATION: Sepsis and pneumonia. TIME OF EXAM: 03:37 a.m. Correlation is made with prior study from one day earlier. The heart size is stable. Cardiac pacer remains in place. Right hemidiaphragm is chronically elevated. There is some central congestive changes noted as well as mild bibasilar atelectasis/infiltrate. This has increased since yesterday. No effusion or pneumothorax is seen. IMPRESSION: Slight increase in central congestive changes and bibasilar infiltrate/atelectasis when compared with examination one day earlier. Dictated by: Dictated on workstation # [id number]
[2017-10-26] MEDS: SERTRALINE 100 MG (ZOLOFT) TAB PO SCH (08:58)
[2017-10-26] MEDS: BENZTROPINE MESYLATE 1 MG (COGENTIN) TAB PO SCH (08:59)
[2017-10-26] MEDS: OLANZapine 5 MG (ZyPREXA) TAB PO SCH (12:31)
[2017-10-26] MEDS: DIVALPROEX 500 MG DELAYED RELEASE (DEPAKOTE) TAB PO SCH (22:31)
[2017-10-27] VITALS (24 sets, daily range): BP systolic 90–143; BP diastolic 60–95
[2017-10-27] MEDS: CEFEPIME 2 GM/NS 50 ML IVPB IV SCH ×4 (00:53→12:41)
[2017-10-27 03:41] LABS: BASOPHILS % (AUTO) 0 % (0-10); EOSINOPHILS # (AUTO) 0.1 10^3/uL (0.0-0.3); EOSINOPHILS % (AUTO) 0 % (0-10); HEMATOCRIT 31 % (40-54); HEMOGLOBIN 10.1 G/DL (13.3-17.7); LYMPHOCYTES # (AUTO) 1.7 X 10^3 (1.0-4.0); LYMPHOCYTES % (AUTO) 12 % (12-44); MEAN CORPUSCULAR HEMOGLOBIN 31 PG (25-34); MEAN CORPUSCULAR HGB CONC 33 G/DL (32-36); MEAN CORPUSCULAR VOLUME 94 FL (80-99); MEAN PLATELET VOLUME 10.7 FL (7.4-10.4); MONOCYTES # (AUTO) 1.5 X 10^3 (0.0-1.0); MONOCYTES % (AUTO) 11 % (0-12); NEUTROPHILS # (AUTO) 10.6 X 10^3 (1.8-7.8); NEUTROPHILS % (AUTO) 77 % (42-75); PLATELET COUNT 85 10^3/uL (130-400); RED BLOOD COUNT 3.29 10^6/uL (4.35-5.85); WHITE BLOOD COUNT 13.8 10^3/uL (4.3-11.0)
[2017-10-27 04:17] LABS: BUN/CREATININE RATIO 16; CALCIUM 8.6 MG/DL (8.5-10.1); CARBON DIOXIDE 20 MMOL/L (21-32); CHLORIDE 108 MMOL/L (98-107); CREATININE SERUM 0.76 MG/DL (0.60-1.30); GFR ESTIMATED > 60; GLUCOSE 101 MG/DL (70-105); MAGNESIUM 1.4 MG/DL (1.8-2.4); PHOSPHORUS 2.2 MG/DL (2.3-4.7); POTASSIUM 3.6 MMOL/L (3.6-5.0); SODIUM 136 MMOL/L (135-145)
[2017-10-27 04:22] LABS: ALANINE AMINOTRANSFERASE 36 U/L (0-55); ALKALINE PHOSPHATASE 59 U/L (40-136); BILIRUBIN,TOTAL 0.7 MG/DL (0.1-1.0); BUN/CREATININE RATIO 16; CALCIUM 8.4 MG/DL (8.5-10.1); CARBON DIOXIDE 21 MMOL/L (21-32); CHLORIDE 108 MMOL/L (98-107); CREATININE SERUM 0.75 MG/DL (0.60-1.30); GFR ESTIMATED > 60; GLUCOSE 102 MG/DL (70-105); POTASSIUM 3.6 MMOL/L (3.6-5.0); SODIUM 136 MMOL/L (135-145); TOTAL PROTEIN 5.8 GM/DL (6.4-8.2)
[2017-10-27] MEDS: LEVETIRACETAM INJECTION 500 MG in NS (IVPB) 100 ML IV SCH ×2 (04:53→15:53)
[2017-10-27] MEDS ORDERED: POTASSIUM PHOSPHATE INJ 30 MM in NS (IVPB) 250 ML IV ONE (06:15)
--- NOTE | 2017-10-27 06:15 | Pulmonary Progress Note ---
Sepsis Event Evaluation Height, Weight, BMI Height: 6'0.00" Weight: 166lbs. 0.0oz. 75.719665mv; 22.5 BMI Method:Estimated Focused Exam Lactate Level 10/25/17 19:10: Lactic Acid Level 6.10*H 10/25/17 21:20: Lactic Acid Level 3.04*H 10/26/17 05:10: Lactic Acid Level 1.71 Exam Exam Vital Signs Date Time Temp Pulse Resp B/P (MAP) Pulse Ox O2 Delivery O2 Flow Rate FiO2 10/27/17 05:12 67 15 96 Nasal Cannula 1.00 10/27/17 05:00 68 23 102/71 (81) 91 Nasal Cannula 3.00 10/27/17 04:00 72 10 108/89 (95) 95 Nasal Cannula 3.00 10/27/17 04:00 97 Nasal Cannula 3.00 10/27/17 04:00 98.3 10/27/17 03:00 66 13 101/60 (74) 96 Nasal Cannula 3.00 10/27/17 02:00 73 12 108/63 (78) 93 Nasal Cannula 3.00 10/27/17 01:00 76 10/27/17 01:00 76 10 122/80 (94) 95 Nasal Cannula 3.00 10/27/17 00:00 82 16 131/69 (89) 96 Nasal Cannula 3.00 10/27/17 00:00 99.6 10/27/17 00:00 97 Nasal Cannula 3.00 10/26/17 23:56 Nasal Cannula 3.00 10/26/17 23:00 79 15 122/69 (86) 97 Nasal Cannula 3.00 10/26/17 22:00 80 12 114/103 (107) 97 Nasal Cannula 3.00 10/26/17 21:00 80 13 120/92 (101) 97 Nasal Cannula 3.00 10/26/17 20:00 79 12 119/75 (90) 97 Nasal Cannula 3.00 10/26/17 20:00 100.0 10/26/17 20:00 97 Nasal Cannula 3.00 10/26/17 19:00 79 10/26/17 19:00 73 14 102/88 (93) 96 Nasal Cannula 3.00 10/26/17 18:00 75 18 124/69 (87) 94 Nasal Cannula 3.00 10/26/17 17:00 76 14 93/79 (84) 98 Nasal Cannula 3.00 10/26/17 16:15 99.1 10/26/17 16:00 80 9 114/65 (81) 98 Nasal Cannula 3.00 10/26/17 16:00 98 Nasal Cannula 3.00 10/26/17 15:00 80 7 91/67 (75) 98 Nasal Cannula 3.00 10/26/17 14:00 81 11 115/68 (84) 96 Nasal Cannula 3.00 10/26/17 13:50 79 10/26/17 13:00 80 10 116/94 (101) 97 Nasal Cannula 3.00 10/26/17 12:32 97.6 10/26/17 12:00 62 16 103/78 (86) 99 Nasal Cannula 3.00 10/26/17 12:00 98 Nasal Cannula 3.00 10/26/17 11:00 64 12 105/71 (82) 98 Nasal Cannula 3.00 10/26/17 10:00 69 12 109/59 (76) 98 Nasal Cannula 3.00 10/26/17 09:00 70 11 90/81 (84) 98 Nasal Cannula 3.00 10/26/17 08:00 98 Nasal Cannula 3.00 10/26/17 08:00 68 14 94/74 (81) 98 Nasal Cannula 3.00 10/26/17 08:00 98.4 10/26/17 07:21 72 10/26/17 07:00 70 17 106/59 (75) 95 Nasal Cannula 3.00 10/26/17 06:30 79 12 95/60 (72) 95 Nasal Cannula 3.00 I & O 10/27/17 07:00 Intake Total 1025 ml Output Total 1625 ml Balance -600 ml Height & Weight Height: 6'0.00" Weight: 166lbs. 0.0oz. 75.063296sj; 22.5 BMI Method:Estimated General Appearance: No Apparent Distress, Chronically ill HEENT: PERRL/EOMI, Moist Mucous Membranes Neck: Non Tender, Supple Respiratory: Lungs Clear, No Accessory Muscle Use, No Respiratory Distress, Decreased Breath Sounds Cardiovascular: Regular Rate, Rhythm, No Murmur Extremity: Normal Capillary Refill, No Calf Tenderness Neurologic/Psychiatric: Alert Skin: Normal Color, Warm/Dry Results Lab Laboratory Tests 10/25/17 14:20 10/26/17 03:00 10/27/17 03:06 Assessment/Plan Assessment/Plan Sepsis with pneumonia -Cefepime, -IVF 100cc/hr -Leukocytosis, fever improving slowly -Foy cultures neg thus far Hypotension - resolved -IVF 100 UTI -Abx Hypomag, hypokalemia, hypophos -Replace CHF NIDDM hx of CVA Will transfer to 4th floor with tele NEELAM BENAVIDEZ DO Oct 27, 2017 06:15
[2017-10-27] MEDS: KCL 20 MEQ TAB (K-DUR) PO SCH (06:31)
[2017-10-27] MEDS: POTASSIUM CL 10MEQ/50ML IVPB 50 ML IV SCH (06:31)
[2017-10-27] MEDS: MAGNESIUM 1 GM/100 ML IVPB 100 ML IV SCH ×3 (06:31→08:37)
[2017-10-27] MEDS: inSUlin ASPART (NovoLOG) 1 UNIT/0.01 ML (CHARGE PER UNIT) SC SCH ×4 (06:54→21:00)
--- NOTE | 2017-10-27 08:12 | Diagnostic Imaging Report ---
INDICATION: Sepsis and pneumonia. TIME OF EXAM: 03:13 a.m. Correlation is made with prior study from 10/26/2017. The heart size is stable. Cardiac pacemaker remains in place. Right hemidiaphragm is chronically elevated. There has been some improved aeration of lungs. Less congestion is seen today. Aeration at lung bases has improved. No effusion or pneumothorax is identified. IMPRESSION: Improved aeration of both lungs when compared to examination one day earlier. Dictated by: Dictated on workstation # [id number]
--- NOTE | 2017-10-27 08:15 | Progress Note-Hospitalist ---
Subjective HPI/CC On Admission Date Seen by Provider: Oct 27, 2017 Time Seen by Provider: 08:11 Pt is a 62yoCM with a PMH of CVA and HTN who presented as a direct admission due to fever and leukocytosis noted at [place]. He mostly grunts during my exam and does not provide any history which per report from [place] is not far from his baseline. Most of the history if obtained from the [place] transfer and from conversation with Cooper Pacheco APRN. He was reportedly at his baseline yesterday but this morning was more lethargic and not communicating with gestures like he normally does. He was found to be febrile and given a one time dose of Levaquin this morning. Labs were done and revealed a leukocytosis of 15k. His BP was 90/40 with hypoxia so decision was made to direct admit for IV abx. Subjective/Events-last exam Pt is soundly sleeping during exam. Opens eyes but otherwise does not participate. Discussed with RN who states pt was up most of the night and only fell asleep a few hours ago. Focused Exam Lactate Level 10/25/17 19:10: Lactic Acid Level 6.10*H 10/25/17 21:20: Lactic Acid Level 3.04*H 10/26/17 05:10: Lactic Acid Level 1.71 Objective Exam Vital Signs Vital Signs Date Time Temp Pulse Resp B/P (MAP) Pulse Ox O2 Delivery O2 Flow Rate FiO2 10/27/17 07:00 61 15 90/61 (71) 94 Nasal Cannula 1.00 10/27/17 04:00 98.3 Capillary Refill : General Appearance: No Apparent Distress, Chronically ill Respiratory: Lungs Clear, No Respiratory Distress Cardiovascular: Regular Rate, Rhythm, No Murmur Gastrointestinal: Normal Bowel Sounds, Soft Extremity: Normal Capillary Refill, No Calf Tenderness, No Pedal Edema Results/Procedures Lab Laboratory Tests 10/27/17 03:06 Patient resulted labs reviewed. Assessment/Plan Assessment and Plan Assess & Plan/Chief Complaint Septic Shock Diagnosis/Problems Diagnosis/Problems (1) Sepsis Status: Acute Assessment & Plan: Improving BP stable overnight Cultures show no growth (though received antibiotics prior to admission at [place]) Continue Cefepime Can transfer to floor today Qualifiers: Sepsis type: sepsis due to unspecified organism Qualified Codes: A41.9 - Sepsis, unspecified organism (2) CVA, old, aphasia Assessment & Plan: essentially aphasic at baseline per [place] report (3) CHF (congestive heart failure) Status: Chronic Assessment & Plan: Reported in history, no echo on file Monitor volume status closely with IVF Qualifiers: Heart failure type: unspecified Heart failure chronicity: chronic Qualified Codes: I50.9 - Heart failure, unspecified (4) Non-insulin dependent type 2 diabetes mellitus Assessment & Plan: Hold metformin due to lactic acidosis Fasting blood sugars WNL Clinical Quality Measures DVT/VTE Risk/Contraindication: Risk Factor Score Per Nursin RFS Level Per Nursing on Admit: 4+=Very High JUSTINO SANDERS MD Oct 27, 2017 8:15 am
[2017-10-27] MEDS ORDERED: KCL 20 MEQ TAB (K-DUR) PO ONE (09:00)
[2017-10-27] MEDS: BENZTROPINE MESYLATE 1 MG (COGENTIN) TAB PO SCH (09:49)
[2017-10-27] MEDS: SERTRALINE 100 MG (ZOLOFT) TAB PO SCH (09:49)
[2017-10-27] MEDS: OLANZapine 5 MG (ZyPREXA) TAB PO SCH (11:16)
[2017-10-27] MEDS: NS IV 1000 ML 1,000 ML IV SCH ×2 (13:14→21:53)
[2017-10-27] MEDS: DIVALPROEX 500 MG DELAYED RELEASE (DEPAKOTE) TAB PO SCH (21:53)
[2017-10-28] VITALS (15 sets, daily range): BP systolic 91–134; BP diastolic 54–89
[2017-10-28] MEDS: ACETAMINOPHEN 325 MG TABLET PO PRN (00:21)
[2017-10-28] MEDS: CEFEPIME 2 GM/NS 50 ML IVPB IV SCH ×4 (01:07→12:23)
[2017-10-28 03:59] LABS: BASOPHILS % (AUTO) 0 % (0-10); EOSINOPHILS # (AUTO) 0.1 10^3/uL (0.0-0.3); EOSINOPHILS % (AUTO) 1 % (0-10); HEMATOCRIT 31 % (40-54); HEMOGLOBIN 9.9 G/DL (13.3-17.7); LYMPHOCYTES # (AUTO) 1.3 X 10^3 (1.0-4.0); LYMPHOCYTES % (AUTO) 15 % (12-44); MEAN CORPUSCULAR HGB CONC 32 G/DL (32-36); MEAN CORPUSCULAR VOLUME 95 FL (80-99); MEAN PLATELET VOLUME 11.2 FL (7.4-10.4); MONOCYTES % (AUTO) 12 % (0-12); NEUTROPHILS # (AUTO) 6.4 X 10^3 (1.8-7.8); NEUTROPHILS % (AUTO) 73 % (42-75); PLATELET COUNT 80 10^3/uL (130-400); RED BLOOD COUNT 3.25 10^6/uL (4.35-5.85); WHITE BLOOD COUNT 8.9 10^3/uL (4.3-11.0)
[2017-10-28 04:03] LABS: MEAN CORPUSCULAR HEMOGLOBIN 30 PG (25-34)
[2017-10-28] MEDS: LEVETIRACETAM INJECTION 500 MG in NS (IVPB) 100 ML IV SCH (04:06)
[2017-10-28 04:18] LABS: ALANINE AMINOTRANSFERASE 39 U/L (0-55); ALBUMIN 2.8 GM/DL (3.2-4.5); ALKALINE PHOSPHATASE 64 U/L (40-136); BILIRUBIN,TOTAL 0.8 MG/DL (0.1-1.0); BUN/CREATININE RATIO 13; CALCIUM 8.5 MG/DL (8.5-10.1); CARBON DIOXIDE 20 MMOL/L (21-32); CHLORIDE 109 MMOL/L (98-107); CREATININE SERUM 0.64 MG/DL (0.60-1.30); GFR ESTIMATED > 60; GLUCOSE 103 MG/DL (70-105); MAGNESIUM 1.7 MG/DL (1.8-2.4); PHOSPHORUS 2.9 MG/DL (2.3-4.7); POTASSIUM 3.4 MMOL/L (3.6-5.0); SODIUM 138 MMOL/L (135-145)
[2017-10-28] MEDS: inSUlin ASPART (NovoLOG) 1 UNIT/0.01 ML (CHARGE PER UNIT) SC SCH ×2 (06:00→11:13)
--- NOTE | 2017-10-28 08:04 | Pulmonary Progress Note ---
Sepsis Event Evaluation Height, Weight, BMI Height: 6'0.00" Weight: 166lbs. 0.0oz. 75.825909fg; 22.5 BMI Method:Estimated Focused Exam Lactate Level 10/25/17 19:10: Lactic Acid Level 6.10*H 10/25/17 21:20: Lactic Acid Level 3.04*H 10/26/17 05:10: Lactic Acid Level 1.71 Exam Exam Vital Signs Date Time Temp Pulse Resp B/P (MAP) Pulse Ox O2 Delivery O2 Flow Rate FiO2 10/28/17 06:44 Nasal Cannula 1.00 10/28/17 06:00 59 13 104/62 (76) 93 Nasal Cannula 1.00 10/28/17 05:00 60 15 101/58 (72) 93 Nasal Cannula 1.00 10/28/17 04:00 61 13 93/59 (70) 94 Nasal Cannula 1.00 10/28/17 04:00 Nasal Cannula 1.00 10/28/17 03:37 97.3 10/28/17 03:00 64 25 102/89 (93) 95 Nasal Cannula 1.00 10/28/17 02:00 70 17 91/63 (72) 93 Nasal Cannula 1.00 10/28/17 01:14 98.9 10/28/17 01:13 98.8 10/28/17 01:00 60 10/28/17 01:00 79 16 95/66 (76) 94 Nasal Cannula 1.00 10/28/17 00:21 100.1 10/28/17 00:00 Nasal Cannula 1.00 10/28/17 00:00 81 19 116/73 (87) 95 Nasal Cannula 1.00 10/27/17 23:50 100.1 10/27/17 23:00 Nasal Cannula 1.00 10/27/17 23:00 86 12 143/95 (111) 96 Nasal Cannula 1.00 10/27/17 22:00 80 7 107/85 (92) 96 Nasal Cannula 1.00 10/27/17 21:00 77 16 112/85 (94) 94 Nasal Cannula 1.00 10/27/17 20:00 85 12 122/62 (82) 89 Nasal Cannula 1.00 10/27/17 20:00 Nasal Cannula 1.00 10/27/17 19:51 99.2 10/27/17 19:00 80 14 121/79 (93) 93 Nasal Cannula 1.00 10/27/17 19:00 79 10/27/17 18:00 78 18 117/81 (93) 96 Nasal Cannula 1.00 10/27/17 17:00 72 16 103/78 (86) 97 Nasal Cannula 1.00 10/27/17 16:00 62 9 101/72 (82) 97 Nasal Cannula 1.00 10/27/17 15:47 97.1 10/27/17 15:20 Nasal Cannula 1.00 10/27/17 15:00 67 18 104/70 (81) 95 Nasal Cannula 1.00 10/27/17 14:00 65 18 92/61 (71) 94 Nasal Cannula 1.00 10/27/17 13:00 81 13 110/66 (81) 89 Nasal Cannula 1.00 10/27/17 13:00 61 10/27/17 12:31 97.6 10/27/17 12:04 97.6 10/27/17 12:00 60 9 98/67 (77) 98 Nasal Cannula 1.00 10/27/17 11:12 96 Nasal Cannula 1.00 10/27/17 11:00 61 12 105/66 (79) 97 Nasal Cannula 1.00 10/27/17 10:00 60 11 114/68 (83) 99 Nasal Cannula 1.00 10/27/17 09:00 71 13 102/66 (78) 96 Nasal Cannula 1.00 I & O 10/28/17 07:00 Intake Total 2250 ml Output Total 2750 ml Balance -500 ml Height & Weight Height: 6'0.00" Weight: 166lbs. 0.0oz. 75.340400ia; 22.5 BMI Method:Estimated General Appearance: No Apparent Distress, Chronically ill HEENT: PERRL/EOMI, Moist Mucous Membranes Neck: Non Tender, Supple Respiratory: Lungs Clear, No Respiratory Distress Cardiovascular: Regular Rate, Rhythm, No Murmur Extremity: Normal Capillary Refill, No Calf Tenderness, No Pedal Edema Neurologic/Psychiatric: Alert Skin: Normal Color, Warm/Dry Results Lab Laboratory Tests 10/27/17 03:06 10/28/17 03:33 Assessment/Plan Assessment/Plan Sepsis with pneumonia -Cefepime, -IVF 100cc/hr -Leukocytosis, fever improving slowly -Foy cultures neg thus far Hypotension - resolved UTI -Abx Hypomag, hypokalemia, hypophos -Replace CHF NIDDM hx of CVA Plan is for home with hospice. I am going to sign off please call with any questions. NEELAM BENAVIDEZ DO Oct 28, 2017 8:04 am
[2017-10-28] MEDS: BENZTROPINE MESYLATE 1 MG (COGENTIN) TAB PO SCH (08:16)
[2017-10-28] MEDS: NS IV 1000 ML 1,000 ML IV SCH (08:16)
[2017-10-28] MEDS: SERTRALINE 100 MG (ZOLOFT) TAB PO SCH (08:17)
--- NOTE | 2017-10-28 09:50 | Discharge Summary-Hospitalist ---
Diagnosis/Chief Complaint Date of Admission Oct 25, 2017 at 12:35 pm Date of Discharge Discharge Date: Oct 28, 2017 Admission Diagnosis Severe Sepsis Discharge Diagnosis (1) Sepsis Status: Acute Assessment & Plan: Improving BP stable overnight Cultures show no growth (though received antibiotics prior to admission at [facility]) Continue Cefepime Can transfer to floor today (2) CVA, old, aphasia Assessment & Plan: essentially aphasic at baseline per [facility] report (3) CHF (congestive heart failure) Status: Chronic Assessment & Plan: Reported in history, no echo on file Monitor volume status closely with IVF (4) Non-insulin dependent type 2 diabetes mellitus Assessment & Plan: Hold metformin due to lactic acidosis Fasting blood sugars WNL Discharge Summary Procedures/Consulations Dr Ofelia Herzog Discharge Physical Exam Allergies: Coded Allergies: No Known Drug Allergies (Verified , 07/25/07) Vitals & I&Os Vital Signs Date Time Temp Pulse Resp B/P (MAP) Pulse Ox O2 Delivery O2 Flow Rate FiO2 10/28/17 14:35 10/28/17 13:00 68 10/28/17 13:00 14 99 Nasal Cannula 1.00 10/28/17 12:00 97.5 General Appearance: No Apparent Distress, Chronically ill Respiratory: Lungs Clear, No Respiratory Distress Cardiovascular: Regular Rate, Rhythm, No Murmur Hospital Course Pt was admitted for severe sepsis and progressed to septic shock and was managed in the ICU. He responded to high volume fluids and IV antibiotics. He remained slightly altered even from his baseline mentation. Discussed were had with his sister who is DPOA regarding goals of care and she was interested in pursuing hospice. I discussed this plan with Surekha Edmonds APRN who cares for him at this half-way. He was discharged back to the half-way on [facility]. Labs (last 24 hrs) Microbiology 10/25/17 Blood Culture - Preliminary, Resulted No growth 10/25/17 Urine Culture - Final, Complete NO GROWTH Patient resulted labs reviewed. Pending Labs Discussion & Recommendations Discharge Planning: >30 minutes discharge planning Discharge Home Medications: Active Scripts Active Lorazepam Intensol (Lorazepam) 2 Mg/1 Ml Oral.conc 2 Mg PO Q2H PRN Reported Albuterol Sulfate 2.5 Mg/3 Ml Vial.neb 2.5 Mg NEB Q4H Tylenol Extra Strength (Acetaminophen) 500 Mg Tablet 1,000 Mg PO TID 5 Days 5 DAY THEARPY START DATE 10-25-17 Zyprexa (Olanzapine) 15 Mg Tablet 15 Mg PO 1200 Zoloft (Sertraline HCl) 100 Mg Tablet 100 Mg PO DAILY Tussin Dm Liquid (Guaifenesin/Dextromethorphan) 118 Ml Liquid 10 Ml PO Q6H PRN Omeprazole 20 Mg Capsule.dr 20 Mg PO DAILY Miralax (Polyethylene Glycol 3350) 17 Gm Powd.pack 17 Gm PO HS Maalox Advanced Suspension (Mag Hydrox/Aluminum Hyd/Simeth) 355 Ml Oral.susp 30 Ml PO Q4H PRN Keppra (Levetiracetam) 500 Mg Tablet 500 Mg PO BID Benztropine Mesylate 2 Mg Tablet 2 Mg PO DAILY Acetaminophen 325 Mg Tablet 650 Mg PO Q6H PRN Divalproex Sodium 500 Mg Tablet.dr 1,500 Mg PO HS TAKES 3 (500MG) TABLETS Aspirin EC (Aspirin) 325 Mg Tablet.dr 325 Mg PO DAILY Loratadine 10 Mg Tablet 10 Mg PO DAILY PRN Instructions to patient/family Please see electronic discharge instructions given to patient. Clinical Quality Measures DVT/VTE Risk/Contraindication: Risk Factor Score Per Nursin RFS Level Per Nursing on Admit: 4+=Very High Copy Copies To 1: SUREKHA EDMONDS APRN Problem Qualifiers (1) Sepsis: Sepsis type: sepsis due to unspecified organism Qualified Codes: A41.9 - Sepsis, unspecified organism (2) CHF (congestive heart failure): Heart failure type: unspecified Heart failure chronicity: chronic Qualified Codes: I50.9 - Heart failure, unspecified JUSTINO SANDERS MD Oct 28, 2017 09:50
[2017-10-28] MEDS ORDERED: LORA2ORA PO (10:22)
[2017-10-28] MEDS: OLANZapine 5 MG (ZyPREXA) TAB PO SCH (12:05)
--- NOTE | 2017-10-31 16:05 | Physician Query Clarification ---
PQ-Conflicting Diagnosis Admission/Discharge Admission Date: Oct 25, 2017 at 12:35 Discharge Date: Oct 28, 2017 at 14:35 The medical record reflects the following clinical scenario: History/Risk Factors: Leukocytosis, fever improving slowly Clinical Findings: Sepsis with pneumonia and UTI Treatment: -Cefepime Question: Do you agree with the impression of the Sepsis with pneumonia and UTI per Dr Tee. Please document a response below. PHYSICIAN RESPONSE Do you agree w/Consulting Dx?: Yes In responding to this query, please exercise your independent professional judgment. The purpose of this communication is to more accurately reflect the complexity of your patients condition. The fact that a question is asked does not imply that any particular answer is desired or expected. Thank you for your timely response to this clarification. Requestors name: Laxmi Shah THIS PHYSICIAN QUERY FORM IS A PERMANENT PART OF THE MEDICAL RECORD LACEY SHAH Oct 31, 2017 16:05 JUSTINO SANDERS MD Nov 06, 2017 12:39
== END 2017-10-28 14:35 | disposition hospice, inpatient (51) | DRG 871 ==
LOC: 4TH 12:35 → ICU 19:54
PROVIDERS: ADMIT Internal Medicine; ATTEND Family Medicine
DX: A41.9 Sepsis, unspecified organism (principal); R65.20 Severe sepsis without septic shock; J18.9 Pneumonia, unspecified organism; N39.0 Urinary tract infection, site not specified; I69.320 Aphasia following cerebral infarction; I42.9 Cardiomyopathy, unspecified; I11.0 Hypertensive heart disease with heart failure; I50.9 Heart failure, unspecified; Z66 Do not resuscitate; E11.9 Type 2 diabetes mellitus without complications; R09.02 Hypoxemia; F17.210 Nicotine dependence, cigarettes, uncomplicated; I48.91 Unspecified atrial fibrillation; F03.90 Unspecified dementia, unspecified severity, without behavioral disturbance, psychotic disturbance, mood disturbance, and anxiety; Z95.810 Presence of automatic (implantable) cardiac defibrillator; Z86.19 Personal history of other infectious and parasitic diseases; E83.42 Hypomagnesemia; E87.6 Hypokalemia; E83.39 Other disorders of phosphorus metabolism
CPT/HCPCS: 36415; 71045; 80048; 80053; 81000; 82962; 83605; 83735; 84100; 85007; 85025; 85027; 87040; 87088

== ENCOUNTER → 2019-03-17 | Outpatient (CLI) | payer MEDICAID, MEDICARE ==
[~2019-03-17] MED LIST changes: +ACET-2267 PO; +ALBU2.5V4 NEB; +LEVO750T9 PO; +LORA2ORA PO; +OMEP-280 PO; -OMEP20CA12 PO
[2019-03-17 19:12] LABS: BILIRUBIN,URINE NEGATIVE (NEGATIVE); CLARITY,URINE CLEAR; COLOR,URINE YELLOW; GLUCOSE, URINE (UA) 3+ (NEGATIVE); KETONES,URINE NEGATIVE (NEGATIVE); LEUKOCYTE ESTERASE ,URINE NEGATIVE (NEGATIVE); NITRITE,URINE NEGATIVE (NEGATIVE); PROTEIN,URINE NEGATIVE (NEGATIVE)
[2019-03-17 19:20] LABS: BACTERIA,URINE NEGATIVE /HPF; SQUAMOUS EPITHELIAL CELL,UR RARE /HPF; WBC,URINE RARE /HPF
== END ==
PROVIDERS: ATTEND Internal Medicine
DX: R35.0 Frequency of micturition (principal)
CPT/HCPCS: 81000

== ENCOUNTER → 2019-03-30 | Outpatient (CLI) | payer MEDICAID, MEDICARE ==
[~2019-03-30] MED LIST changes: -OMEP-280 PO; +OMEP20CA18 PO
== END ==
PROVIDERS: ATTEND Internal Medicine
DX: Z01.89 Encounter for other specified special examinations (principal)
CPT/HCPCS: 87804

== ENCOUNTER 2019-08-06 13:11 | Inpatient (IN) | payer MEDICARE, MEDICAID ==
[~2019-08-06] VITALS: Ht 172.7 cm; Wt 72.0 kg
[2019-08-06 13:31] LABS: BASOPHILS % (AUTO) 0 % (0-10); EOSINOPHILS # (AUTO) 0.1 10^3/uL (0.0-0.3); EOSINOPHILS % (AUTO) 1 % (0-10); HEMATOCRIT 42 % (40-54); HEMOGLOBIN 12.8 G/DL (13.3-17.7); LYMPHOCYTES # (AUTO) 2.2 X 10^3 (1.0-4.0); LYMPHOCYTES % (AUTO) 25 % (12-44); MEAN CORPUSCULAR HEMOGLOBIN 27 PG (25-34); MEAN CORPUSCULAR HGB CONC 31 G/DL (32-36); MEAN CORPUSCULAR VOLUME 88 FL (80-99); MEAN PLATELET VOLUME 10.3 FL (7.4-10.4); MONOCYTES % (AUTO) 11 % (0-12); NEUTROPHILS # (AUTO) 5.4 X 10^3 (1.8-7.8); NEUTROPHILS % (AUTO) 62 % (42-75); PLATELET COUNT 267 10^3/uL (130-400); RED CELL DISTRIBUTION WIDTH 17.1 % (10.0-14.5); WHITE BLOOD COUNT 8.7 10^3/uL (4.3-11.0)
[2019-08-06 13:45] LABS: ALBUMIN 3.7 GM/DL (3.2-4.5); CHLORIDE 107 MMOL/L (98-107); POTASSIUM 4.3 MMOL/L (3.6-5.0); SODIUM 142 MMOL/L (135-145)
[2019-08-06 13:46] LABS: CALCIUM 9.2 MG/DL (8.5-10.1)
[2019-08-06 13:47] LABS: GLUCOSE 162 MG/DL (70-105); TOTAL PROTEIN 8.7 GM/DL (6.4-8.2)
[2019-08-06 13:48] LABS: CARBON DIOXIDE 19 MMOL/L (21-32)
[2019-08-06 13:49] LABS: BILIRUBIN,TOTAL 0.9 MG/DL (0.1-1.0)
[2019-08-06 13:51] LABS: ALKALINE PHOSPHATASE 128 U/L (40-136); CREATININE SERUM 0.91 MG/DL (0.60-1.30); GFR ESTIMATED > 60
[2019-08-06 13:52] LABS: BUN/CREATININE RATIO 21
[2019-08-06 13:54] LABS: ALANINE AMINOTRANSFERASE 51 U/L (0-55); MAGNESIUM 1.8 MG/DL (1.6-2.4)
[2019-08-06] MEDS ORDERED: ACETAMINOPHEN 650 MG SUPP (TYLENOL) ONE (13:57)
[2019-08-06] MEDS ORDERED: NS IV 1000 ML 1,000 ML ONE (13:57)
[2019-08-06 14:00] LABS: VALPROIC ACID 85.2 UG/ML (50.0-100.0)
[2019-08-06 14:14] LABS: TSH (THYROID ANALYZER) 3.58 UIU/ML (0.35-4.94)
[2019-08-06] MEDS ORDERED: ACETAMINOPHEN 650 MG SUPP (TYLENOL) PR ONE (14:15)
--- NOTE | 2019-08-06 14:16 | ED General ---
General Chief Complaint: General Problems/Pain Stated Complaint: SEIZURE Nursing Triage Note: BIBA FOR SZ LIKE ACTIVITY. ARRIVES ALERT, NOT ORIENTED AT BASELINE. CONVULSIONS PRESENT AT THIS TIME. KNOWN SZ HX. Nursing Sepsis Screen: Possible Severe Sepsis Risk Source of Information: Caregiver, EMS, Family, [facility] Records Exam Limitations: No Limitations History of Present Illness Date Seen by Provider: Aug 06, 2019 Time Seen by Provider: 13:13 Initial Comments This 63-year-old man presents to the emergency room from [facility] with reports of seizure-like tremoring activity. [facility] staff reported that he has had violent tremors for about 25 minutes prior to EMS arrival. However, he was alert during this episode and was able to answer questions. He does have a history of seizure disorder and takes medications. No fever was noted by the alf, EMS, or on arrival, but he did develop fever shortly after arrival. Patient has severe neurologic deficits from prior stroke. He has right-sided paralysis and has cognitive deficits. He does not carry on meaningful conversations and cannot care for himself. Some of the history was obtained from alf staff and some of it was obtained from his sister/DPOA. EMS administered Versed 5 mg intranasally to help calm down the tremors. [facility] staff notes some stage I decubitus ulcers on the ankle and buttock. No obvious external source of infection is known. Allergies and Home Medications Allergies Coded Allergies: No Known Drug Allergies (Verified , 07/25/07) Home Medications Acetaminophen 325 Mg Tablet, 650 MG PO Q6H PRN for PAIN-MILD OR TEMPATURE, (Reported) Acetaminophen 500 Mg Tablet, 1,000 MG PO TID, (Reported) 5 DAY THEWATTONY START DATE 10-25-17 Albuterol Sulfate 2.5 Mg/3 Ml Vial.neb, 2.5 MG NEB Q4H, (Reported) Aspirin 325 Mg Tablet.dr, 325 MG PO DAILY, (Reported) Benztropine Mesylate 2 Mg Tablet, 2 MG PO DAILY, (Reported) Divalproex Sodium 500 Mg Tablet.dr, 1,500 MG PO HS, (Reported) TAKES 3 (500MG) TABLETS Guaifenesin/Dextromethorphan 118 Ml Liquid, 10 ML PO Q6H PRN for COUGH, (Reported) Levetiracetam 500 Mg Tablet, 500 MG PO BID, (Reported) Loratadine 10 Mg Tablet, 10 MG PO DAILY PRN for CONGESTION, (Reported) Lorazepam 2 Mg/1 Ml Oral.conc, 2 MG PO Q2H PRN for AGITATION Prescribed by: JUSTINO SANDERS on 10/28/17 1022 Mag Hydrox/Aluminum Hyd/Simeth 355 Ml Oral.susp, 30 ML PO Q4H PRN for HEARTBURN, (Reported) Olanzapine 15 Mg Tablet, 15 MG PO 1200, (Reported) Omeprazole 20 Mg Capsule.dr, 20 MG PO DAILY, (Reported) Polyethylene Glycol 3350 17 Gm Powd.pack, 17 GM PO HS, (Reported) Sertraline HCl 100 Mg Tablet, 100 MG PO DAILY, (Reported) Patient Home Medication List Home Medication List Reviewed: Yes Review of Systems Review of Systems Constitutional: see HPI EENTM: no symptoms reported Respiratory: no symptoms reported Cardiovascular: no symptoms reported Gastrointestinal: no symptoms reported Genitourinary: no symptoms reported Musculoskeletal: no symptoms reported Skin: no symptoms reported Psychiatric/Neurological: See HPI Hematologic/Lymphatic: No Symptoms Reported Immunological/Allergic: no symptoms reported Past Ftnefpc-Uweori-Yqiedr Hx Past Med/Social Hx: Reviewed and Corrections made Patient Social History Alcohol Use: Denies Use Recreational Drug Use: Yes Drug of Choice: HX OF METH USE Smoking Status: Former Smoker Type Used: Cigarettes Recent Foreign Travel: No Contact w/Someone Who Travel: No Recent Infectious Disease Expo: No Recent Hopitalizations: Yes (APRIL 2017 IN [place], AUGUST 2017) Immunizations Up To Date PED Vaccines UTD: Yes Date of Pneumonia Vaccine: Nov 07, 2016 Seasonal Allergies Seasonal Allergies: No Past Medical History Surgeries: Yes (decubitus ulcer debridement) Abdominal, Defibrillator, Pacemaker Respiratory: Yes Pneumonia Currently Using CPAP: No Currently Using BIPAP: No Cardiac: Yes (LBBB) Atrial Fibrillation, Cardiomyopathy Neurological: Yes (CEREBRAL INFARCTION, RT SIDE WEAKNESS) Stroke Sexually Transmitted Disease: No HIV/AIDS: No Genitourinary: Yes Kidney Infection, UTI-Chronic Gastrointestinal: Yes (FEEDING TUBE (INSTERTED AND REMOVED)) Musculoskeletal: Yes (GENERALIZED MUSCLE WEAKNESS/RT SIDE WEAKNESS) Endocrine: Yes Diabetes, Non-Insulin dep HEENT: No Cancer: No Psychosocial: Yes (PARANOID) Integumentary: No Blood Disorders: No (HX OF HEP C) Adverse Reaction/Blood Tranf: No Family Medical History Patient reports no known family medical history. Family, past surgical and medical history obtained from records as patient is unable to answer questions. Physical Exam-Suspected Sepsis Physical Exam Vital Signs Vital Signs - First Documented 08/06/19 13:38 Temp 39.2 Pulse 140 Resp 20 B/P (MAP) 124/87 (99) Pulse Ox 96 O2 Delivery Room Air Capillary Refill : Less Than 3 Seconds Blood Pressure Mean: 99 Height, Weight, BMI Height: 6'0.00" Weight: 166lbs. 0.0oz. 75.200942fo; 22.5 BMI Method:Estimated General Appearance: WD/WN, Mild Distress (Tremors) HEENT: PERRL/EOMI, Normal ENT Inspection Neck: Normal Inspection Respiratory: Lungs Clear, Normal Breath Sounds, No Accessory Muscle Use, No Respiratory Distress Cardiovascular: No Edema, No Murmur, Normal Peripheral Pulses, Tachycardia ( Regular) Gastrointestinal: Normal Bowel Sounds, Non Tender, Soft; No Distended Extremity: Normal Inspection, No Pedal Edema, Other (Heels are in soft foods for skin protection) Neurologic/Psychiatric: Alert, Other (Right-sided motor deficits, cognitive deficits) Skin: normal color, warm/dry Focused Exam Lactate Level 08/06/19 14:16: Lactic Acid Level 4.04*H 08/06/19 18:00: Lactic Acid Level Laboratory Tests Test 08/06/19 18:00 Progress/Results/Core Measures Suspected Sepsis Recent Fever Within 48 Hours: No Infection Criteria Present: Suspected New Infection New/Unexplained Altered Menta: No Sepsis Screen: Possible Severe Sepsis Risk SIRS Temperature: Pulse: 140 Respiratory Rate: 20 Laboratory Tests 08/06/19 13:15: White Blood Count 8.7 Blood Pressure 124 /87 Mean: 99 08/06/19 14:16: Lactic Acid Level 4.04*H 08/06/19 18:00: Laboratory Tests 08/06/19 13:15: Creatinine 0.91, Platelet Count 267, Total Bilirubin 0.9 08/06/19 14:16: INR Comment 0.9 Results/Orders Lab Results Laboratory Tests Test 08/06/19 13:15 08/06/19 13:48 08/06/19 13:58 08/06/19 14:16 Range/Units White Blood Count 8.7 4.3-11.0 10^3/uL Red Blood Count 4.73 4.35-5.85 10^6/uL Hemoglobin 12.8 L 13.3-17.7 G/DL Hematocrit 42 40-54 % Mean Corpuscular Volume 88 80-99 FL Mean Corpuscular Hemoglobin 27 25-34 PG Mean Corpuscular Hemoglobin Concent 31 L 32-36 G/DL Red Cell Distribution Width 17.1 H 10.0-14.5 % Platelet Count 267 130-400 10^3/uL Mean Platelet Volume 10.3 7.4-10.4 FL Neutrophils (%) (Auto) 62 42-75 % Lymphocytes (%) (Auto) 25 12-44 % Monocytes (%) (Auto) 11 0-12 % Eosinophils (%) (Auto) 1 0-10 % Basophils (%) (Auto) 0 0-10 % Neutrophils # (Auto) 5.4 1.8-7.8 X 10^3 Lymphocytes # (Auto) 2.2 1.0-4.0 X 10^3 Monocytes # (Auto) 1.0 0.0-1.0 X 10^3 Eosinophils # (Auto) 0.1 0.0-0.3 10^3/uL Basophils # (Auto) 0.0 0.0-0.1 10^3/uL Sodium Level 142 135-145 MMOL/L Potassium Level 4.3 3.6-5.0 MMOL/L Chloride Level 107 98-107 MMOL/L Carbon Dioxide Level 19 L 21-32 MMOL/L Anion Gap 16 H 5-14 MMOL/L Blood Urea Nitrogen 19 H 7-18 MG/DL Creatinine 0.91 0.60-1.30 MG/DL Estimat Glomerular Filtration Rate > 60 BUN/Creatinine Ratio 21 Glucose Level 162 H 70-105 MG/DL Calcium Level 9.2 8.5-10.1 MG/DL Corrected Calcium 9.4 8.5-10.1 MG/DL Magnesium Level 1.8 1.6-2.4 MG/DL Total Bilirubin 0.9 0.1-1.0 MG/DL Aspartate Amino Transf (AST/SGOT) 104 H 5-34 U/L Alanine Aminotransferase (ALT/SGPT) 51 0-55 U/L Alkaline Phosphatase 128 40-136 U/L C-Reactive Protein High Sensitivity 5.24 H 0.00-0.50 MG/DL Total Protein 8.7 H 6.4-8.2 GM/DL Albumin 3.7 3.2-4.5 GM/DL Procalcitonin 0.11 H <0.10 NG/ML TSH [place] Testing 3.58 0.35-4.94 UIU/ML Valproic Acid (Depakene) Level 85.2 50.0-100.0 UG/ML Troponin I < 0.028 <0.028 NG/ML Total Creatine Kinase 108 30-200 U/L Prothrombin Time 12.7 12.2-14.7 SEC INR Comment 0.9 0.8-1.4 Activated Partial Thromboplast Time 25 24-35 SEC Lactic Acid Level 4.04 *H 0.50-2.00 MMOL/L Test 08/06/19 14:20 08/06/19 14:40 08/06/19 18:00 Range/Units Urine Color YELLOW Urine Clarity CLEAR Urine pH 6.5 5-9 Urine Specific Mikado 1.020 1.016-1.022 Urine Protein NEGATIVE NEGATIVE Urine Glucose (UA) NEGATIVE NEGATIVE Urine Ketones NEGATIVE NEGATIVE Urine Nitrite NEGATIVE NEGATIVE Urine Bilirubin NEGATIVE NEGATIVE Urine Urobilinogen 4.0 < = 1.0 MG/DL Urine Leukocyte Esterase NEGATIVE NEGATIVE Urine RBC (Auto) NEGATIVE NEGATIVE Urine RBC NONE /HPF Urine WBC NONE /HPF Urine Squamous Epithelial Cells 0-2 /HPF Urine Crystals NONE /LPF Urine Bacteria NEGATIVE /HPF Urine Casts NONE /LPF Urine Mucus NEGATIVE /LPF Urine Culture Indicated NO Micro Results Microbiology 08/06/19 Influenza Types A,B Antigen (OSKAR) - Final, Complete My Orders Orders - AARON CADET MD Cbc With Automated Diff (08/06/19 13:19) Comprehensive Metabolic Panel (08/06/19 13:19) Hs C Reactive Protein (08/06/19 13:19) Magnesium (08/06/19 13:19) Thyroid Analyzer (08/06/19 13:19) Ua Culture If Indicated (08/06/19 13:19) Valproic Acid (08/06/19 13:19) Ed Iv/Invasive Line Start (08/06/19 13:19) Chest 1 View, Ap/Pa Only (08/06/19 13:19) Ns Iv 1000 Ml (Sodium Chloride 0.9%) (08/06/19 13:57) Blood Culture (08/06/19 13:57) Sputum Culture (08/06/19 13:57) Protime With Inr (08/06/19 13:57) Partial Thromboplastin Time (08/06/19 13:57) Ed Iv/Invasive Line Start (08/06/19 13:57) O2 (08/06/19 13:57) Remove Rings In Anticipation O (08/06/19 13:57) Lactic Acid Analyzer (08/06/19 13:57) Ns Iv 1000 Ml (Sodium Chloride 0.9%) (08/06/19 13:57) Creatine Kinase (08/06/19 13:57) Influenza A And B Antigens (08/06/19 13:57) Coronavirus Sars-Cov-2 So 2019 (08/06/19 13:57) Acetaminophen Suppository (Tylenol Suppo (08/06/19 13:57) Acetaminophen Suppository (Tylenol Suppo (08/06/19 14:15) Magnesium 1 Gm/100 Ml Ivpb (Magnesium Meza (08/06/19 14:30) Troponin I (08/06/19 14:29) Cefepime Injection (Maxipime Injection) (08/06/19 15:45) Procalcitonin (Pct) (08/06/19 15:51) Ns Iv 500 Ml (Sodium Chloride 0.9%) (08/06/19 15:57) Ns Iv 1000 Ml (Sodium Chloride 0.9%) (08/06/19 15:58) Ns (Ivpb) (Sodium Chloride 0.9% Ivpb Bag (08/06/19 15:58) Medications Given in ED Current Medications Medications Dose Ordered Sig/Haritha Route Start Time Stop Time Status Last Admin Dose Admin Acetaminophen 650 mg ONCE ONCE AR 08/06/19 14:15 08/06/19 14:16 DC 08/06/19 14:53 650 MG Cefepime HCl 2000 mg/Sterile Water 20 ml @ 240 mls/hr ONCE ONCE IV 08/06/19 15:45 08/06/19 15:49 DC 08/06/19 16:22 240 MLS/HR Vital Signs/I&O 08/06/19 08/06/19 08/06/19 08/06/19 13:38 15:02 16:24 16:40 Temp 39.2 37.0 Pulse 140 131 124 122 Resp 20 20 18 18 B/P (MAP) 124/87 (99) 141/79 121/80 124/84 Pulse Ox 96 94 95 98 O2 Delivery Room Air Room Air Room Air Room Air 08/06/19 08/06/19 08/06/19 16:46 18:29 18:31 Pulse 114 113 Resp 18 B/P (MAP) 126/84 (98) Pulse Ox 94 O2 Delivery Room Air Room Air Capillary Refill : Less Than 3 Seconds Blood Pressure Mean: 99 Progress Note : Progress Note Septic workup was pursued. No source of bacterial infection was identified. Patient was started on cefepime as empiric therapy for possible severe sepsis. He is receiving 30 ML per kilogram in normal saline boluses (2500 mL). Patient's vital tremors were thought to be secondary to emerging fever. Tylenol was administered rectally. Patient was admitted to the hospitalist service. Because no other source of infection was identified COVID screening was obtained. Patient was noted to have a few very brief runs of what appeared to be ventricular tachycardia on the monitor. Each episode lasted [address] Oswald was consulted. After consultation magnesium 2 g IV was administered. Patient's sister confirms the DO NOT RESUSCITATE status. ECG Initial ECG Impression Date: Aug 06, 2019 Initial ECG Impression Time: 13:48 Initial ECG Rate: 133 Initial ECG Rhythm: S.Tach Comment Sinus tachycardia with no ST elevation or depression. Right bundle branch block. No axis deviation. Diagnostic Imaging Diagonstic Imaging: Xray Plain Films/CT/US/NM/MRI: chest Comments Chest x-ray viewed by me and report reviewed. See report below: NAME: EDY[facility]SON [facility] REC#: [id number] PT STATUS: REG ER : 1955 PHYSICIAN: AARON CADET MD ADMIT DATE: 08/06/19/ER Draft Date of Exam:08/06/19 CHEST 1 VIEW, AP/PA ONLY INDICATION: Fever and possible seizure. Frontal chest obtained at 03:04 p.m. and compared to 10/27/2017. Heart is normal in size. Pacemaker is unchanged. There is mild central vascular prominence which is similar to the prior study. There is some linear scarring or atelectasis in the left lateral base. This also appeared similar on the prior study. There is some linear scarring or atelectasis in the right medial base. There is no new consolidation or pleural fluid. There is no pneumothorax. IMPRESSION: Mild central vascular prominence. There are bibasilar areas of scarring or atelectasis which are similar to the previous study. There is no new consolidation or pleural fluid. Dictated on workstation # [id number] Dict: 08/06/19 1515 Trans: 08/06/19 1518 [id number] Interpreted by: NOLA NG MD Departure Communication (Admissions) Time/Spoke to Admitting Phy: 15:47 Dr. Kelly Time/Spoke to Consulting Phy: 14:10 Dr. Oswald Impression Primary Impression: Severe sepsis Additional Impressions: Rigors Lactic acidosis Ventricular tachycardia Disposition: ADMITTED INPATIENT Condition: Improved Admissions Decision to Admit Reason: Admit from ER (General) Decision to Admit/Date: Aug 06, 2019 Time/Decision to Admit Time: 13:15 Departure-Patient Inst. Referrals: DAMON CAUSEY DO (PCP/Family) Primary Care Physician Copy Copies To 1: ROBBIN PINZON MD, JOSHUA T MD Aug 06, 2019 14:16
[2019-08-06] MEDS: MAGNESIUM 1 GM/100 ML IVPB 100 ML IV SCH ×2 (14:53→17:25)
[2019-08-06] MEDS: NS IV 1000 ML 1,000 ML IV SCH ×2 (14:53→19:30)
[2019-08-06 14:54] LABS: BILIRUBIN,URINE NEGATIVE (NEGATIVE); CLARITY,URINE CLEAR; COLOR,URINE YELLOW; GLUCOSE, URINE (UA) NEGATIVE (NEGATIVE); KETONES,URINE NEGATIVE (NEGATIVE); LEUKOCYTE ESTERASE ,URINE NEGATIVE (NEGATIVE); NITRITE,URINE NEGATIVE (NEGATIVE); PH,URINE 6.5 (5-9); PROTEIN,URINE NEGATIVE (NEGATIVE)
[2019-08-06 15:05] LABS: INR 0.9 (0.8-1.4); PROTHROMBIN TIME PATIENT 12.7 SEC (12.2-14.7)
--- NOTE | 2019-08-06 15:11 | NUR ---
CALLED FACILITY TO UPDATE ON PT STATUS AND PLAN OF CARE TO ADMIT.
--- OUTSIDE RECORDS SUMMARY | 2019-08-06 15:15 | XMS REPORT | Continuity of Care Document ---
Demographics Preferred Language Unknown Marital Status Unknown Hinduism Affiliation Unknown Race Unknown Ethnic Group Unknown Author Organization Unknown Address Unknown Phone Unavailable Allergies Active Description Code Type Severity Reaction Onset Reported/Identified Relationship to Patient Clinical Status Yes NO KNOWN DRUG ALLERGIES UNKNOWN NO KNOWN DRUG ALLERG Yes No Known Drug Allergies [id number] Drug Allergy Unknown N/A 01/12/2007 Medications Medication Packaging Start Date St op Date Route Dosage Sig Flu vacc [id number] Persons 6 mo T older(PF) IM syringe/vial(Fluarix QUAD) Adult ML 02/10/2018 019 ONCE&154 9 ACETAMINOPHEN ORAL TABLET 325mg(Tylenol) MG 02/10/2018 03/12/2018 PRN EVERY 6 Hour INSULIN ASPART PEN INJ 100 U NITS/CC (NOVOLOG FLEXPEN) Dr. Guerrero UNITS 02/10/2018 03/12/2018 ACHS&0630,1130,1 630,2100 CALMOSEPTINE OINT TUBE (RISAMINE OINT) kelsey 02/10/2018 02/17/2018 PRN QID LOPERAMIDE CAP 2 MG (IMMODIUM) MG 02/10/2018 02/17/2018 PRN QID POLYETHYLENE GLYCOL POWDER U D PWD (MIRALAX 17GM UNIT DOSE PAKS) gm 02/10/2018 02/20/2018 PRN Q3H ALUM/MAG/SIMETH 30CC LIQ (MYLANTA PLUS) cc 02/10/2018 02/20/2018 PRN Q4H LEVETIRACETAM TAB 500 MG (KEPPRA) MG 02/10/2018 03/12/2018 BID&0800,2000 LACTULOSE SYRUP LIQ 20 GM/30 CC (CHRONULAC SYRUP) GM 02/10/2018 03/12/2018 PRN BID MILK OF MAGNESIA LIQ ml 02/10/2018 03/12/2018 PRN BID DIVALPROEX ER TAB 500 MG (DEPAKOTE ER) MG 02/10/2018 03/11/2018 QHS&2100 SERTRALINE TAB 50 MG (ZOLOFT) MG 02/11/2018 03/12/2018 Daily&0900 OLANZAPINE DISSOLVABLE TAB 5 MG (ZYPREXA Z YDIS) MG 02/11/2018 03/12/2018 Daily&0900 ASPIRIN TAB 325 MG (GLENN) M G 02/11/2018 03/12/2018 Daily&0900 OLANZAPINE TAB 2.5 MG (ZYPREXA) MG 02/11/2018 03/12/2018 Daily&0900 PANTOPRAZOLE TAB 20 MG (PROTONIX) MG 02/11/2018 03/12/2018 Daily&0900 POLYETHYLENE GLYCOL POWDER U D PWD (MIRALAX 17GM UNIT DOSE PAKS) gm 02/11/2018 03/13/2018 PRN Daily BISACODYL SUPPOS 10 MG (DULCOLAX SUPPOS) MG 02/11/2018 02/17/2018 PRN Daily RISPERIDONE TAB 0.25 MG (RISPERDAL) MG 02/12/2018 03/14/2018 BID&0800,2000 RISPERIDONE TAB 0.25 MG (RISPERDAL) MG 02/13/2018 03/14/2018 Daily&1400 ACETAMINOPHEN ORAL TABLET 325mg(Tylenol) MG 03/20/2018 04/19/2018 PRN EVERY 6 Hour OLANZAPINE TAB 5 MG (ZYPREXA) MG 03/20/2018 03/20/2018 ONCE&1555 INSULIN ASPART PEN INJ 100 U NITS/CC (NOVOLOG FLEXPEN) 03/20/2018 04/19/2018 ACHS&0630,1130,1630,2100 Artificial TEARS opht drops (TEARS for Dry Eyes) DROP 03/20/2018 03/30/2018 QID&0800,1200,1700,2200 LOPERAMIDE CAP 2 MG (IMMODIUM) MG 03/20/2018 04/19/2018 PRN QID ALUM/MAG/SIMETH 30CC LIQ (MYLANTA PLUS) cc 03/20/2018 04/19/2018 PRN Q4H RISPERIDONE TAB 0.25 MG (RISPERDAL) MG 03/20/2018 04/19/2018 TID&0800,1400,2000 LEVETIRACETAM TAB 500 MG (KEPPRA) MG 03/20/2018 04/19/2018 BID&0800,2000 OLANZAPINE TAB 5 MG (ZYPREXA) MG 03/20/2018 04/19/2018 BID&0800,2000 RISPERIDONE TAB 0.5 MG (RISPERDAL) MG 03/20/2018 04/19/2018 TID&0800,1400,2000 INSULIN DETEMIR PEN INJ 100 UNITS/CC (LEVEMIR FLEXPEN) UNITS 03/20/2018 04/18/2018 Daily&2000 LACTULOSE SYRUP LIQ 20 GM/30 CC (CHRONULAC SYRUP) GM 03/20/2018 04/19/2018 BID&0800,2000 MILK OF MAGNESIA LIQ ml 03/20/2018 04/19/2018 PRN BID DIVALPROEX ER TAB 500 MG (DEPAKOTE ER) MG 03/20/2018 04/18/2018 QHS&2100 PAROXETINE TAB 20 MG (PAXIL) MG 03/21/2018 04/19/2018 Daily&0900 SERTRALINE TAB 50 MG (ZOLOFT) MG 03/21/2018 04/19/2018 Daily&0900 ASPIRIN TAB 325 MG (GLENN) M G 03/21/2018 04/19/2018 Daily&0900 PANTOPRAZOLE TAB 20 MG (PROTONIX) MG 03/21/2018 04/19/2018 Daily&0900 POLYETHYLENE GLYCOL POWDER U D PWD (MIRALAX 17GM UNIT DOSE PAKS) gm 03/21/2018 04/19/2018 Daily&0900 BISACODYL SUPPOS 10 MG (DULCOLAX SUPPOS) MG 03/21/2018 04/20/2018 PRN Daily OLANZAPINE TAB 10 MG (ZYPREXA) MG 03/23/2018 04/22/2018 BID&0800,2000 PAROXETINE TAB 20 MG (PAXIL) MG 03/27/2018 04/25/2018 Daily&0900 MEDROXYPROGESTERONE TAB 2.5 MG (PROVERA) MG 03/27/2018 04/25/2018 Daily&1200 Problems Date Dx Coded Attending Type Code Diagnosis Diagnosed By 08/18/2017 BHAVANA BERRIOS MD Ot A41 .9 SEPSIS, UNSPECIFIED ORGANISM 08/18/2017 BHAVANA BERRIOS MD Ot D69 .6 THROMBOCYTOPENIA, UNSPECIFIED 08/18/2017 BHAVANA BERRIOS MD Ot E11 .9 TYPE 2 DIABETES MELLITUS WITHOUT COMPLIC 08/18/2017 BHAVANA BERRIOS MD Ot E87 .2 ACIDOSIS 08/18/2017 BHAVANA BERRIOS MD Ot F03.90 UNSPECIFIED DEMENTIA WITHOUT BEHAVIORAL 08/18/2017 BHAVANA BERRIOS MD Ot F15.90 OTHER STIMULANT USE, UNSPECIFIED, UNCOMP 08/18/2017 BHAVANA BERRIOS MD Ot F17.210 NICOTINE DEPENDENCE, CIGARETTES, UNCOMPL 08/18/2017 BHAVANA BERRIOS MD Ot F22 DELUSIONAL DISORDERS 08/18/2017 BHAVANA BERRIOS MD Ot I42 .9 CARDIOMYOPATHY, UNSPECIFIED 08/18/2017 BHAVANA BERRIOS MD Ot I44 .7 LEFT BUNDLE-BRANCH BLOCK, UNSPECIFIED 08/18/2017 BHAVANA BERRIOS MD Ot I48.91 UNSPECIFIED ATRIAL FIBRILLATION 08/18/2017 BHAVANA BERRIOS MD Ot I69.351 HEMIPLGA FOLLOWING CEREBRAL INFRC AFF RI 08/18/2017 BHAVANA BERRIOS MD Ot 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 08/18/2017 BHAVANA BERRIOS MD Ot J18 .9 PNEUMONIA, UNSPECIFIED ORGANISM 08/18/2017 BHAVANA BERRIOS MD Ot R65.21 SEVERE SEPSIS WITH SEPTIC SHOCK 08/18/2017 BHAVANA BERRIOS MD Ot Z66 DO NOT RESUSCITATE 08/18/2017 BHAVANA BERRIOS MD Ot Z79.84 HALFWAY (CURRENT) USE OF ORAL HYPOGLYC 08/18/2017 BHAVANA BERRIOS MD Ot Z86.19 PERSONAL HISTORY OF OTHER INFECTIOUS AND 08/18/2017 BHAVANA BERRIOS MD Ot Z87.440 PERSONAL HISTORY OF URINARY (TRACT) INFE 08/18/2017 BHAVANA BERRIOS MD Ot Z95.810 PRESENCE OF AUTOMATIC (IMPLANTABLE) CARD 08/18/2017 BHAVANA BERRIOS MD Ot A41 .9 SEPSIS, UNSPECIFIED ORGANISM 08/18/2017 BHAVANA BERRIOS MD Ot D69 .6 THROMBOCYTOPENIA, UNSPECIFIED 08/18/2017 BHAVANA BERRIOS MD Ot E11 .9 TYPE 2 DIABETES MELLITUS WITHOUT COMPLIC 08/18/2017 BHAVANA BERRIOS MD Ot E87 .2 ACIDOSIS 08/18/2017 BHAVANA BERRIOS MD Ot F03.90 UNSPECIFIED DEMENTIA WITHOUT BEHAVIORAL 08/18/2017 BHAVANA BERRIOS MD Ot F15.90 OTHER STIMULANT USE, UNSPECIFIED, UNCOMP 08/18/2017 BHAVANA BERRIOS MD Ot F17.210 NICOTINE DEPENDENCE, CIGARETTES, UNCOMPL 08/18/2017 BHAVANA BERRIOS MD Ot F22 DELUSIONAL DISORDERS 08/18/2017 BHAVANA BERRIOS MD Ot I42 .9 CARDIOMYOPATHY, UNSPECIFIED 08/18/2017 BHAVANA BERRIOS MD Ot I44 .7 LEFT BUNDLE-BRANCH BLOCK, UNSPECIFIED 08/18/2017 BHAVANA BERRIOS MD Ot I48.91 UNSPECIFIED ATRIAL FIBRILLATION 08/18/2017 BHAVANA BERRIOS MD Ot I69.351 HEMIPLGA FOLLOWING CEREBRAL INFRC AFF RI 08/18/2017 BHAVANA BERRIOS MD Ot 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 08/18/2017 BHAVANA BERRIOS MD Ot J18 .9 PNEUMONIA, UNSPECIFIED ORGANISM 08/18/2017 BHAVANA BERRIOS MD Ot R65.21 SEVERE SEPSIS WITH SEPTIC SHOCK 08/18/2017 BHAVANA BERRIOS MD Ot Z66 DO NOT RESUSCITATE 08/18/2017 BHAVANA BERRIOS MD Ot Z79.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 08/18/2017 BHAVANA BERRIOS MD Ot Z86.19 PERSONAL HISTORY OF OTHER INFECTIOUS AND 08/18/2017 BHAVANA BERRIOS MD Ot Z87.440 PERSONAL HISTORY OF URINARY (TRACT) INFE 08/18/2017 BHAVANA BERRIOS MD Ot Z95.810 PRESENCE OF AUTOMATIC (IMPLANTABLE) CARD 08/19/2017 BHAVANA BERRIOS MD Ot A41 .9 SEPSIS, UNSPECIFIED ORGANISM 08/19/2017 BHAVANA BERRIOS MD Ot D69 .6 THROMBOCYTOPENIA, UNSPECIFIED 08/19/2017 BHAVANA BERRIOS MD Ot E11 .9 TYPE 2 DIABETES MELLITUS WITHOUT COMPLIC 08/19/2017 BHAVANA BERRIOS MD Ot E87 .2 ACIDOSIS 08/19/2017 BHAVANA BERRIOS MD Ot F03.90 UNSPECIFIED DEMENTIA WITHOUT BEHAVIORAL 08/19/2017 BHAVANA BERRIOS MD Ot F15.90 OTHER STIMULANT USE, UNSPECIFIED, UNCOMP 08/19/2017 BHAVANA BERRIOS MD Ot F17.210 NICOTINE DEPENDENCE, CIGARETTES, UNCOMPL 08/19/2017 BHAVANA BERROIS MD Ot F22 DELUSIONAL DISORDERS 08/19/2017 BHAVANA BERRIOS MD Ot I42 .9 CARDIOMYOPATHY, UNSPECIFIED 08/19/2017 BHAVANA BERRIOS MD Ot I44 .7 LEFT BUNDLE-BRANCH BLOCK, UNSPECIFIED 08/19/2017 BHAVANA BERRIOS MD Ot I48.91 UNSPECIFIED ATRIAL FIBRILLATION 08/19/2017 BHAVANA BERRIOS MD Ot I69.351 HEMIPLGA FOLLOWING CEREBRAL INFRC AFF RI 08/19/2017 BHAVANA BERRIOS MD Ot 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 08/19/2017 BHAVANA BERRIOS MD Ot J18 .9 PNEUMONIA, UNSPECIFIED ORGANISM 08/19/2017 BHAVANA BERRIOS MD Ot R65.21 SEVERE SEPSIS WITH SEPTIC SHOCK 08/19/2017 BHAVANA BERRIOS MD Ot Z66 DO NOT RESUSCITATE 08/19/2017 BHAVANA BERRIOS MD Ot Z79.84 HALFWAY (CURRENT) USE OF ORAL HYPOGLYC 08/19/2017 BHAVANA BERRIOS MD Ot Z86.19 PERSONAL HISTORY OF OTHER INFECTIOUS AND 08/19/2017 BHAVANA BERRIOS MD Ot Z87.440 PERSONAL HISTORY OF URINARY (TRACT) INFE 08/19/2017 BHAVANA BERRIOS MD Ot Z95.810 PRESENCE OF AUTOMATIC (IMPLANTABLE) CARD 08/19/2017 BHAVANA BERRIOS MD Ot A41 .9 SEPSIS, UNSPECIFIED ORGANISM 08/19/2017 BHAVANA BERRIOS MD Ot D69 .6 THROMBOCYTOPENIA, UNSPECIFIED 08/19/2017 BHAVANA BERRIOS MD Ot E11 .9 TYPE 2 DIABETES MELLITUS WITHOUT COMPLIC 08/19/2017 BHAVANA BERRIOS MD Ot E83.39 OTHER DISORDERS OF PHOSPHORUS METABOLISM 08/19/2017 BHAVANA BERRIOS MD Ot E87 .2 ACIDOSIS 08/19/2017 BHAVANA BERRIOS MD Ot E87 .6 HYPOKALEMIA 08/19/2017 BHAVANA BERRIOS MD Ot F03.90 UNSPECIFIED DEMENTIA WITHOUT BEHAVIORAL 08/19/2017 BHAVANA BERRIOS MD Ot F15.90 OTHER STIMULANT USE, UNSPECIFIED, UNCOMP 08/19/2017 BHAVANA BERRIOS MD Ot F17.210 NICOTINE DEPENDENCE, CIGARETTES, UNCOMPL 08/19/2017 BHAVANA BERRIOS MD Ot F22 DELUSIONAL DISORDERS 08/19/2017 BHAVANA BERRIOS MD Ot I42 .9 CARDIOMYOPATHY, UNSPECIFIED 08/19/2017 BHAVANA BERRIOS MD Ot I44 .7 LEFT BUNDLE-BRANCH BLOCK, UNSPECIFIED 08/19/2017 BHAVANA BERRIOS MD Ot I48.91 UNSPECIFIED ATRIAL FIBRILLATION 08/19/2017 BHAVANA BERRIOS MD Ot I50 .9 HEART FAILURE, UNSPECIFIED 08/19/2017 BHAVANA BERRIOS MD Ot I69.351 HEMIPLGA FOLLOWING CEREBRAL INFRC AFF RI 08/19/2017 BHAVANA BERRIOS MD Ot 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 9 SEPSIS, UNSPECIFIED ORGANISM 10/26/2017 JUSTINO SANDERS MD Ot E11. 9 TYPE 2 DIABETES MELLITUS WITHOUT COMPLIC 10/26/2017 JUSTINO SANDERS MD Ot F03. 90 UNSPECIFIED DEMENTIA WITHOUT BEHAVIORAL 10/26/2017 JUSTINO SANDERS MD Ot F17.210 NICOTINE DEPENDENCE, CIGARETTES, UNCOMPL 10/26/2017 JUSTINO SANDERS MD Ot I11. 0 HYPERTENSIVE HEART DISEASE WITH HEART FA 10/26/2017 JUSTINO SANDERS MD Ot I42. 9 CARDIOMYOPATHY, UNSPECIFIED 10/26/2017 JUSTINO SANDERS MD Ot I48. 91 UNSPECIFIED ATRIAL FIBRILLATION 10/26/2017 JUSTINO SANDERS MD Ot I50. 9 HEART FAILURE, UNSPECIFIED 10/26/2017 JUSTINO SANDERS MD Ot I69.320 APHASIA FOLLOWING CEREBRAL INFARCTION 10/26/2017 JUSTINO SANDERS MD Ot R09. 02 HYPOXEMIA 10/26/2017 JUSTINO SANDERS MD Ot R65. 20 SEVERE SEPSIS WITHOUT SEPTIC SHOCK 10/26/2017 JUSTINO SANDERS MD Ot Z66 DO NOT RESUSCITATE 10/26/2017 JUSTINO SANDERS MD Ot Z86. 19 PERSONAL HISTORY OF OTHER INFECTIOUS AND 10/26/2017 JUSTINO SANDERS MD Ot Z95.810 PRESENCE OF AUTOMATIC (IMPLANTABLE) CARD 10/28/2017 JUSTINO SANDERS MD Ot A41. 9 SEPSIS, UNSPECIFIED ORGANISM 10/28/2017 JUSTINO SANDERS MD Ot E11. 9 TYPE 2 DIABETES MELLITUS WITHOUT COMPLIC 10/28/2017 JUSTINO SANDERS MD Ot E83. 39 OTHER DISORDERS OF PHOSPHORUS METABOLISM 10/28/2017 JUSTINO SANDERS MD Ot E83. 42 HYPOMAGNESEMIA 10/28/2017 JUSTINO SANDERS MD Ot E87. 6 HYPOKALEMIA 10/28/2017 JUSTINO SANDERS MD Ot F03. 90 UNSPECIFIED DEMENTIA WITHOUT BEHAVIORAL 10/28/2017 JUSTINO SANDERS MD Ot F17.210 NICOTINE DEPENDENCE, CIGARETTES, UNCOMPL 10/28/2017 JUSTINO SANDERS MD Ot I11. 0 HYPERTENSIVE HEART DISEASE WITH HEART FA 10/28/2017 JUSTINO SANDERS MD Ot I42. 9 CARDIOMYOPATHY, UNSPECIFIED 10/28/2017 JUSTINO SANDERS MD Ot I48. 91 UNSPECIFIED ATRIAL FIBRILLATION 10/28/2017 JUSTINO SANDERS MD Ot I50. 9 HEART FAILURE, UNSPECIFIED 10/28/2017 JUSTINO SANDERS MD Ot I69.320 APHASIA FOLLOWING CEREBRAL INFARCTION 10/28/2017 JUSTINO SANDERS MD Ot J18. 9 PNEUMONIA, UNSPECIFIED ORGANISM 10/28/2017 JUSTINO SANDERS MD Ot N39. 0 URINARY TRACT INFECTION, SITE NOT SPECIF 10/28/2017 JUSTINO SANDERS MD Ot R09. 02 HYPOXEMIA 10/28/2017 JUSTINO SANDERS MD Ot R65. 20 SEVERE SEPSIS WITHOUT SEPTIC SHOCK 10/28/2017 JUSTINO SANDERS MD Ot Z66 DO NOT RESUSCITATE 10/28/2017 JUSTINO SANDERS MD Ot Z86. 19 PERSONAL HISTORY OF OTHER INFECTIOUS AND 10/28/2017 JUSTINO SANDERS MD Ot Z95.810 PRESENCE OF AUTOMATIC (IMPLANTABLE) CARD 02/10/2018 TARTAGLQUIQUE, AARON W 250 .00 DIABETES MELLITUS WITHOUT MENTION OF COMPLICATION, TYPE II OR UNSPECIFIED TYPE, NOT STATED UNCONTROLLED 02/10/2018 ANANDATAGLQUIQUE, AARON W 272 .4 OTHER AND UNSPECIFIED HYPERLIPIDEMIA 02/10/2018 TARTAGLQUIQUE, AARON W 296 .90 UNSPECIFIED EPISODIC MOOD DISORDER 02/10/2018 TARTAGLQUIQUE, AARON W 401 .9 UNSPECIFIED ESSENTIAL HYPERTENSION 02/10/2018 TARTAGLQUIQUE, AARON W E11 .9 TYPE 2 DIABETES MELLITUS WITHOUT COMPLICATIONS 02/10/2018 TARTAGLQUIQUE, AARON W E78 .5 HYPERLIPIDEMIA, UNSPECIFIED 02/10/2018 TARTAGLQUIQUE, AARON W F39 UNSPECIFIED MOOD [AFFECTIVE] DISORDER 02/10/2018 ANANDATAGLAARON LEI W I10 ESSENTIAL (PRIMARY) HYPERTENSION 02/16/2018 TARTAGLQUIQUE, AARON W 250 .00 DIABETES MELLITUS WITHOUT MENTION OF COMPLICATION, TYPE II OR UNSPECIFIED TYPE, NOT STATED UNCONTROLLED 02/16/2018 ANANDATAGLQUIQUE, AARON W 272 .4 OTHER AND UNSPECIFIED HYPERLIPIDEMIA 02/16/2018 TARTAGLQUIQUE, AARON W 296 .90 UNSPECIFIED EPISODIC MOOD DISORDER 02/16/2018 TARTAGLQUIQUE, AARON W 401 .9 UNSPECIFIED ESSENTIAL HYPERTENSION 02/16/2018 TARTAGLIONE, AARON W 427 .31 02/16/2018 TARTAGLIONE, AARON W 428 .9 02/16/2018 TARTAGLIONE, AARON W 438 .12 02/16/2018 TARTAGLIONE, AARON W 438 .21 02/16/2018 TARTAGLIONE, AARON W 530 .81 02/16/2018 TARTAGLIONE, AARON W 564 .00 02/16/2018 TARTAGLIONE, AARON W 599 .0 02/16/2018 TARTAGLQUIQUE, AARON W E11 .9 TYPE 2 DIABETES MELLITUS WITHOUT COMPLICATIONS 02/16/2018 ANANDATAGLQUIQUE, AARON W E78 .5 HYPERLIPIDEMIA, UNSPECIFIED 02/16/2018 TARTAGLQUIQUE, AARON W F22 02/16/2018 TARTAGLIONEAARON W F33 .3 02/16/2018 TARTAAARON ZEPEDA F39 UNSPECIFIED MOOD [AFFECTIVE] DISORDER 02/16/2018 AARON SOTO I10 ESSENTIAL (PRIMARY) HYPERTENSION 02/16/2018 AARON SOTO I48 .91 UNSPECIFIED ATRIAL FIBRILLATION 02/16/2018 AARON SOTO I50 .9 HEART FAILURE, UNSPECIFIED 02/16/2018 AARON SOTO I69.321 02/16/2018 AARON SOTO I69.351 02/16/2018 AARON SOTO K21 .9 GASTRO-ESOPHAGEAL REFLUX DISEASE WITHOUT ESOPHAGITIS 02/16/2018 AARON SOTO K59 .09 OTHER CONSTIPATION 02/16/2018 AARON SOTO N39 .0 URINARY TRACT INFECTION, SITE NOT SPECIFIED 02/16/2018 AARON SOTO V45 .01 CARDIAC PACEMAKER IN SITU 02/16/2018 AARON SOTO Z95 .0 PRESENCE OF CARDIAC PACEMAKER 03/20/2018 AARON SOTO 250 .00 DIABETES MELLITUS WITHOUT MENTION OF COMPLICATION, TYPE II OR UNSPECIFIED TYPE, NOT STATED UNCONTROLLED 03/20/2018 AARON SOTO 296 .3 MAJOR DEPRESSIVE DISORDER, RECURRENT EPISODE 03/20/2018 AARON SOTO E11 .9 TYPE 2 DIABETES MELLITUS WITHOUT COMPLICATIONS 03/20/2018 AARON SOTO F33 .0 MAJOR DEPRESSIVE DISORDER, RECURRENT, MILD 03/30/2018 AARON SOTO 250 .00 DIABETES MELLITUS WITHOUT MENTION OF COMPLICATION, TYPE II OR UNSPECIFIED TYPE, NOT STATED UNCONTROLLED 03/30/2018 AARON SOTO 295 .70 03/30/2018 AARON SOTO 296 .3 MAJOR DEPRESSIVE DISORDER, RECURRENT EPISODE 03/30/2018 AARON SOTO 401 .0 03/30/2018 AARON SOTO 427 .31 03/30/2018 AARON SOTO 428 .9 03/30/2018 AARON SOTO 438 .12 DYSPHASIA LATE EFFECT OF CEREBROVASCULAR DISEASE 03/30/2018 AARON SOTO 438 .21 HEMIPLEGIA AFFECTING DOMINANT SIDE LATE EFFECT OF CEREBROVASCULAR DISEASE 03/30/2018 AARON SOTO 477 .9 ALLERGIC RHINITIS, CAUSE UNSPECIFIED 03/30/2018 AARON SOTO 530 .81 03/30/2018 AARON SOTO 784 .59 03/30/2018 AARON SOTO W E11 .9 TYPE 2 DIABETES MELLITUS WITHOUT COMPLICATIONS 03/30/2018 AARON SOTO F25 .0 03/30/2018 EDSONGLAARON LEI F33 .0 MAJOR DEPRESSIVE DISORDER, RECURRENT, MILD 03/30/2018 AARON SOTO I10 ESSENTIAL (PRIMARY) HYPERTENSION 03/30/2018 AARON SOTO I48 .91 UNSPECIFIED ATRIAL FIBRILLATION 03/30/2018 AARON SOTO I50 .9 HEART FAILURE, UNSPECIFIED 03/30/2018 AARON SOTO 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 03/30/2018 AARON SOTO I69.351 HEMIPLGA FOLLOWING CEREBRAL INFRC AFF RIGHT DOMINANT S ANALY 03/30/2018 AARON SOTO J30 .9 ALLERGIC RHINITIS, UNSPECIFIED 03/30/2018 AARON SOTO K21 .9 GASTRO-ESOPHAGEAL REFLUX DISEASE WITHOUT ESOPHAGITIS 03/30/2018 AARON SOTO R47 .02 DYSPHASIA 03/26/2019 ROBBIN PINZON MD Ot R35.0 FREQUENCY OF MICTURITION 03/27/2019 ROBBIN PINZON MD Ot R35.0 FREQUENCY OF MICTURITION 04/04/2019 ROBBIN PINZON MD Ot Z01.8 9 ENCOUNTER FOR OTHER SPECIFIED SPECIAL EX 04/05/2019 ROBBIN PINZON MD Ot Z01.8 9 ENCOUNTER FOR OTHER SPECIFIED SPECIAL EX 04/16/2019 ROBBIN PINZON MD Ot R35.0 FREQUENCY OF MICTURITION 04/18/2019 ROBBIN PINZON MD Ot Z01.8 9 ENCOUNTER FOR OTHER SPECIFIED SPECIAL EX Procedures There is no data. Results Test Result Range Complete blood count (CBC) with automate d white blood cell (WBC) differential - 08/16/17 17:52 Blood leukocytes automated count (number/volume) 7.3 10*3/uL 4.3-11.0 Blood erythrocytes automated count (number/volume) 4.19 10*6/uL 4.35-5.85 Venous blood hemoglobin measurement (mass/volume) 12.7 g/dL 13.3-17.7 Blood hematocrit (volume fraction) 38 % 40-54 Automated erythrocyte mean corpuscular volume 91 [ foz_us] 80-99 Automated erythrocyte mean corpuscular h emoglobin (mass per erythrocyte) 30 pg 25-34 Automated erythrocyte mean corpuscular h emoglobin concentration measurement (mass/volume) 33 g/dL 32-36 Automated erythrocyte distribution width ratio 16. 7 % 10.0- 14.5 Automated blood platelet count (count/volume) 109 10*3/uL 130-400 Automated blood platelet mean volume measurement 10.9 [foz_us] 7.4-10.4 Automated blood neutrophils/100 leukocytes 71 % 42-75 Automated blood lymphocytes/100 leukocytes 14 % 12-44 Blood monocytes/100 leukocytes 15 % 0-12 Automated blood eosinophils/100 leukocytes 0 % 0-10 Automated blood basophils/100 leukocytes 0 % 0-10 Blood neutrophils automated count (number/volume) 5.1 10*3 1.8-7.8 Blood lymphocytes automated count (number/volume) 1.0 10*3 1.0-4.0 Blood monocytes automated count (number/volume) 1. 1 10*3 0.0-1.0 Automated eosinophil count 0.0 10*3/uL 0 .0-0.3 Automated blood basophil count (count/volume) 0.0 10*3/uL 0.0-0.1 Comprehensive metabolic panel - 08/16/17 17:52 Serum or plasma sodium measurement (moles/volume) 140 mmol/L 135-145 Serum or plasma potassium measurement (moles/volume) 4.1 mmol/L 3.6-5.0 Serum or plasma chloride measurement (moles/volume) 106 mmol/L 98-107 Carbon dioxide 23 mmol/L 21-32 Serum or plasma anion gap determination (moles/volume) 11 mmol/L 5-14 Serum or plasma urea nitrogen measurement (mass/volume ) 22 mg/dL 7-18 Serum or plasma creatinine measurement (mass/volume) 0.85 mg/dL 0.60-1.30 Serum or plasma urea nitrogen/creatinine mass ratio 26 NRG Serum or plasma creatinine measurement w ith calculation of estimated glomerular filtration rate > NRG Serum or plasma glucose measurement (mass/volume) 112 mg/dL 70-105 Serum or plasma calcium measurement (mass/volume) 9.4 mg/dL 8.5-10.1 Serum or plasma total bilirubin measurement (mass/volu me) 1.0 mg/dL 0.1-1.0 Serum or plasma alkaline phosphatase spencer surement (enzymatic activity/volume) 65 U/L 40-136 Serum or plasma aspartate aminotransfera se measurement (enzymatic activity/volume) 54 U/L 5-34 Serum or plasma alanine aminotransferase measurement (enzymatic activity/volume) 29 U/L 0-55 Serum or plasma protein measurement (mass/volume) 7.3 g/dL 6.4-8.2 Serum or plasma albumin measurement (mass/volume) 3.5 g/dL 3.2-4.5 Blood lactic acid measurement (moles/vol ume) - 08/16/17 17:52 Blood lactic acid measurement (moles/volume) 2.15 mmol/L 0.50-2.00 PT panel in platelet poor plasma by coag ulation assay - 08/16/17 17:52 Prothrombin time (PT) in platelet poor plasma by coagu lation assay 15.7 s 12.2-14.7 INR in platelet poor plasma or blood by coagulation as say 1.3 0.8-1.4 Activated partial thromboplastin time (a PTT) in platelet poor plasma bycoagulation assay - 08/16/17 17:52 Activated partial thromboplastin time (a PTT) in platelet poor plasma bycoagulation assay 35 s 24-35 Serum or plasma troponin i.cardiac measu rement (mass/volume) - 08/16/17 17:52 Serum or plasma troponin i.cardiac measurement (mass/v olume) < ng/mL <0.30 Bacterial blood culture - 08/16/17 17:52 QUANTITY OF GROWTH . [facility] Bacterial blood culture SEE COMMEN [facility] Arterial blood gas measurement - 8 17:53 Blood pCO2 39 mm[Hg] 35-45 Blood pO2 88 mm[Hg] 79-93 Arterial blood bicarbonate measurement (moles/volume) 23 mmol/L 23-27 Arterial blood base excess by calculation -0.8 mmo l/L -2.5-2.5 Arterial blood oxygen saturation measurement 95 % 94-100 * Inhaled oxygen flow rate 10 L NRG Arterial blood pH measurement with patient temperature correction 7.40 7.37-7.43 Arterial blood carbon dioxide, total measurement (mole s/volume) 24.1 mmol/L 21.0-31.0 Body site RIGHT RADIAL NRG Assessment of wrist artery patency prior to arterial p uncture POSITIVE NRG Setting of ventilation mode NO NR G Measurement of body temperature 101.8 NRG Complete urinalysis with reflex to cultu re - 08/16/17 17:55 Urine color determination YELLOW NRG Urine clarity determination CLEAR NR G Urine pH measurement by test strip 6 5-9 Specific gravity of urine by test strip 1.020 1.016-1.022 Urine protein assay by test strip, semi-quantitative 2+ NEGATIVE Urine glucose detection by automated test strip NE GATIVE NEGATIVE Erythrocytes detection in urine sediment by light micr oscopy 2+ NEGATIVE Urine ketones detection by automated test strip 2+ NEGATIVE Urine nitrite detection by test strip NEGATIVE NEGATIVE Urine total bilirubin detection by test strip 2+ NEGATIVE Urine urobilinogen measurement by automated test strip (mass/volume) 12 mg/dL NORMAL Urine leukocyte esterase detection by dipstick 1+ NEGATIVE Automated urine sediment erythrocyte cou nt by microscopy (number/high power field) [HPF] NRG Automated urine sediment leukocyte count by microscopy (number/high power field) [HPF] NRG Bacteria detection in urine sediment by light microsco py NONE NRG Crystals detection in urine sediment by light microsco py PRESENT NRG Casts detection in urine sediment by light microscopy NONE NRG Mucus detection in urine sediment by light microscopy NEGATIVE NRG Complete urinalysis with reflex to culture NO NRG Amorphous sediment detection in urine sediment by ligh t microscopy FEW [place] URATES NRG Bacterial blood culture - 08/16/17 18:08 Bacterial blood culture NG NRG Serum or plasma lactate measurement (mol es/volume) - 08/16/17 20:20 Serum or plasma lactate measurement (moles/volume) 1.56 mmol/L 0.50-2.00 Arterial blood gas measurement - 8 20:23 Blood pCO2 37 mm[Hg] 35-45 Blood pO2 89 mm[Hg] 79-93 Arterial blood bicarbonate measurement (moles/volume) 22 mmol/L 23-27 Arterial blood base excess by calculation -1.9 mmo l/L -2.5-2.5 Arterial blood oxygen saturation measurement 98 % 94-100 * Inhaled oxygen flow rate 40% NRG Arterial blood pH measurement with patient temperature correction 7.40 7.37-7.43 Arterial blood carbon dioxide, total measurement (mole s/volume) 23.5 mmol/L 21.0-31.0 Body site R RAD NRG Assessment of wrist artery patency prior to arterial p uncture YES-POS NRG Setting of ventilation mode NO NR G Measurement of body temperature 97.7 NRG Methicillin resistant Staphylococcus aur eus (MRSA) screening culture - 08/16/17 21:15 Methicillin resistant Staphylococcus aureus (MRSA) scr eening culture NEG NRG Capillary blood glucose measurement by g lucometer (mass/volume) - 08/17/17 01:21 Capillary blood glucose measurement by glucometer (mas s/volume) 88 mg/dL 70-110 Complete blood count (CBC) with automate d white blood cell (WBC) differential - 08/17/17 03:05 Blood leukocytes automated count (number/volume) 6.3 10*3/uL 4.3-11.0 Blood erythrocytes automated count (number/volume) 3.63 10*6/uL 4.35-5.85 Venous blood hemoglobin measurement (mass/volume) 11.0 g/dL 13.3-17.7 Blood hematocrit (volume fraction) 34 % 40-54 Automated erythrocyte mean corpuscular volume 93 [ foz_us] 80-99 Automated erythrocyte mean corpuscular h emoglobin (mass per erythrocyte) 30 pg 25-34 Automated erythrocyte mean corpuscular h emoglobin concentration measurement (mass/volume) 32 g/dL 32-36 Automated erythrocyte distribution width ratio 17. 0 % 10.0- 14.5 Automated blood platelet count (count/volume) 77 1 0*3/uL 130-400 Automated blood platelet mean volume measurement 11.2 [foz_us] 7.4-10.4 Automated blood neutrophils/100 leukocytes 65 % 42-75 Automated blood lymphocytes/100 leukocytes 22 % 12-44 Blood monocytes/100 leukocytes 12 % 0-12 Automated blood eosinophils/100 leukocytes 1 % 0-10 Automated blood basophils/100 leukocytes 0 % 0-10 Blood neutrophils automated count (number/volume) 4.1 10*3 1.8-7.8 Blood lymphocytes automated count (number/volume) 1.4 10*3 1.0-4.0 Blood monocytes automated count (number/volume) 0. 8 10*3 0.0-1.0 Automated eosinophil count 0.0 10*3/uL 0 .0-0.3 Automated blood basophil count (count/volume) 0.0 10*3/uL 0.0-0.1 Comprehensive metabolic panel - 08/17/17 03:05 Serum or plasma sodium measurement (moles/volume) 141 mmol/L 135-145 Serum or plasma potassium measurement (moles/volume) 4.0 mmol/L 3.6-5.0 Serum or plasma chloride measurement (moles/volume) 113 mmol/L 98-107 Carbon dioxide 20 mmol/L 21-32 Serum or plasma anion gap determination (moles/volume) 8 mmol/L 5-14 Serum or plasma urea nitrogen measurement (mass/volume ) 18 mg/dL 7-18 Serum or plasma creatinine measurement (mass/volume) 0.70 mg/dL 0.60-1.30 Serum or plasma urea nitrogen/creatinine mass ratio 26 NRG Serum or plasma creatinine measurement w ith calculation of estimated glomerular filtration rate > NRG Serum or plasma glucose measurement (mass/volume) 85 mg/dL 70-105 Serum or plasma calcium measurement (mass/volume) 8.1 mg/dL 8.5-10.1 Serum or plasma total bilirubin measurement (mass/volu me) 0.8 mg/dL 0.1-1.0 Serum or plasma alkaline phosphatase spencer surement (enzymatic activity/volume) 47 U/L 40-136 Serum or plasma aspartate aminotransfera se measurement (enzymatic activity/volume) 38 U/L 5-34 Serum or plasma alanine aminotransferase measurement (enzymatic activity/volume) 20 U/L 0-55 Serum or plasma protein measurement (mass/volume) 5.5 g/dL 6.4-8.2 Serum or plasma albumin measurement (mass/volume) 2.6 g/dL 3.2-4.5 Serum or plasma phosphate measurement (m ass/volume) - 08/17/17 03:05 Serum or plasma phosphate measurement (mass/volume) 2.8 mg/dL 2.3-4.7 Magnesium - 08/17/17 03:05 Magnesium 1.2 mg/dL 1.8-2.4 Capillary blood glucose measurement by g lucometer (mass/volume) - 08/17/17 14:39 Capillary blood glucose measurement by glucometer (mas s/volume) 138 mg/dL 70-110 Capillary blood glucose measurement by g lucometer (mass/volume) - 08/17/17 17:45 Capillary blood glucose measurement by glucometer (mas s/volume) 125 mg/dL 70-110 Capillary blood glucose measurement by g lucometer (mass/volume) - 08/17/17 21:28 Capillary blood glucose measurement by glucometer (mas s/volume) 203 mg/dL 70-110 Complete blood count (CBC) with automate d white blood cell (WBC) differential - 08/18/17 03:10 Blood leukocytes automated count (number/volume) 5.5 10*3/uL 4.3-11.0 Blood erythrocytes automated count (number/volume) 3.59 10*6/uL 4.35-5.85 Venous blood hemoglobin measurement (mass/volume) 10.9 g/dL 13.3-17.7 Blood hematocrit (volume fraction) 33 % 40-54 Automated erythrocyte mean corpuscular volume 92 [ foz_us] 80-99 Automated erythrocyte mean corpuscular h emoglobin (mass per erythrocyte) 30 pg 25-34 Automated erythrocyte mean corpuscular h emoglobin concentration measurement (mass/volume) 33 g/dL 32-36 Automated erythrocyte distribution width ratio 16. 4 % 10.0- 14.5 Automated blood platelet count (count/volume) 99 1 0*3/uL 130-400 Automated blood platelet mean volume measurement 11.0 [foz_us] 7.4-10.4 Automated blood neutrophils/100 leukocytes 66 % 42-75 Automated blood lymphocytes/100 leukocytes 24 % 12-44 Blood monocytes/100 leukocytes 10 % 0-12 Automated blood eosinophils/100 leukocytes 1 % 0-10 Automated blood basophils/100 leukocytes 0 % 0-10 Blood neutrophils automated count (number/volume) 3.6 10*3 1.8-7.8 Blood lymphocytes automated count (number/volume) 1.3 10*3 1.0-4.0 Blood monocytes automated count (number/volume) 0. 5 10*3 0.0-1.0 Automated eosinophil count 0.0 10*3/uL 0 .0-0.3 Automated blood basophil count (count/volume) 0.0 10*3/uL 0.0-0.1 Comprehensive metabolic panel - 08/18/17 03:10 Serum or plasma sodium measurement (moles/volume) 139 mmol/L 135-145 Serum or plasma potassium measurement (moles/volume) 3.2 mmol/L 3.6-5.0 Serum or plasma chloride measurement (moles/volume) 113 mmol/L 98-107 Carbon dioxide 19 mmol/L 21-32 Serum or plasma anion gap determination (moles/volume) 7 mmol/L 5-14 Serum or plasma urea nitrogen measurement (mass/volume ) 11 mg/dL 7-18 Serum or plasma creatinine measurement (mass/volume) 0.67 mg/dL 0.60-1.30 Serum or plasma urea nitrogen/creatinine mass ratio 16 NRG Serum or plasma creatinine measurement w ith calculation of estimated glomerular filtration rate > NRG Serum or plasma glucose measurement (mass/volume) 124 mg/dL 70-105 Serum or plasma calcium measurement (mass/volume) 8.1 mg/dL 8.5-10.1 Serum or plasma total bilirubin measurement (mass/volu me) 0.6 mg/dL 0.1-1.0 Serum or plasma alkaline phosphatase spencer surement (enzymatic activity/volume) 48 U/L 40-136 Serum or plasma aspartate aminotransfera se measurement (enzymatic activity/volume) 33 U/L 5-34 Serum or plasma alanine aminotransferase measurement (enzymatic activity/volume) 18 U/L 0-55 Serum or plasma protein measurement (mass/volume) 5.6 g/dL 6.4-8.2 Serum or plasma albumin measurement (mass/volume) 2.6 g/dL 3.2-4.5 Serum or plasma phosphate measurement (m ass/volume) - 08/18/17 03:10 Serum or plasma phosphate measurement (mass/volume) 1.8 mg/dL 2.3-4.7 Magnesium - 08/18/17 03:10 Magnesium 1.7 mg/dL 1.8-2.4 Vancomycin trough - 08/18/17 08:40 Vancomycin trough 16.8 ug/mL 10.0-20.0 Capillary blood glucose measurement by g lucometer (mass/volume) - 08/18/17 18:01 Capillary blood glucose measurement by glucometer (mas s/volume) 92 mg/dL 70-110 Capillary blood glucose measurement by g lucometer (mass/volume) - 08/18/17 20:48 Capillary blood glucose measurement by glucometer (mas s/volume) 116 mg/dL 70-110 Capillary blood glucose measurement by g lucometer (mass/volume) - 08/19/17 05:38 Capillary blood glucose measurement by glucometer (mas s/volume) 106 mg/dL 70-110 Complete blood count (CBC) with automate d white blood cell (WBC) differential - 08/19/17 05:50 Blood leukocytes automated count (number/volume) 5.2 10*3/uL 4.3-11.0 Blood erythrocytes automated count (number/volume) 3.68 10*6/uL 4.35-5.85 Venous blood hemoglobin measurement (mass/volume) 10.9 g/dL 13.3-17.7 Blood hematocrit (volume fraction) 33 % 40-54 Automated erythrocyte mean corpuscular volume 90 [ foz_us] 80-99 Automated erythrocyte mean corpuscular h emoglobin (mass per erythrocyte) 30 pg 25-34 Automated erythrocyte mean corpuscular h emoglobin concentration measurement (mass/volume) 33 g/dL 32-36 Automated erythrocyte distribution width ratio 16. 6 % 10.0- 14.5 Automated blood platelet count (count/volume) 131 10*3/uL 130-400 Automated blood platelet mean volume measurement 10.4 [foz_us] 7.4-10.4 Automated blood neutrophils/100 leukocytes 56 % 42-75 Automated blood lymphocytes/100 leukocytes 27 % 12-44 Blood monocytes/100 leukocytes 16 % 0-12 Automated blood eosinophils/100 leukocytes 1 % 0-10 Automated blood basophils/100 leukocytes 0 % 0-10 Blood neutrophils automated count (number/volume) 2.9 10*3 1.8-7.8 Blood lymphocytes automated count (number/volume) 1.4 10*3 1.0-4.0 Blood monocytes automated count (number/volume) 0. 8 10*3 0.0-1.0 Automated eosinophil count 0.1 10*3/uL 0 .0-0.3 Automated blood basophil count (count/volume) 0.0 10*3/uL 0.0-0.1 Comprehensive metabolic panel - 08/19/17 05:50 Serum or plasma sodium measurement (moles/volume) 138 mmol/L 135-145 Serum or plasma potassium measurement (moles/volume) 3.4 mmol/L 3.6-5.0 Serum or plasma chloride measurement (moles/volume) 109 mmol/L 98-107 Carbon dioxide 21 mmol/L 21-32 Serum or plasma anion gap determination (moles/volume) 8 mmol/L 5-14 Serum or plasma urea nitrogen measurement (mass/volume ) 5 mg/dL 7-18 Serum or plasma creatinine measurement (mass/volume) 0.62 mg/dL 0.60-1.30 Serum or plasma urea nitrogen/creatinine mass ratio 8 NRG Serum or plasma creatinine measurement w ith calculation of estimated glomerular filtration rate > NRG Serum or plasma glucose measurement (mass/volume) 92 mg/dL 70-105 Serum or plasma calcium measurement (mass/volume) 8.4 mg/dL 8.5-10.1 Serum or plasma total bilirubin measurement (mass/volu me) 0.8 mg/dL 0.1-1.0 Serum or plasma alkaline phosphatase spencer surement (enzymatic activity/volume) 59 U/L 40-136 Serum or plasma aspartate aminotransfera se measurement (enzymatic activity/volume) 55 U/L 5-34 Serum or plasma alanine aminotransferase measurement (enzymatic activity/volume) 25 U/L 0-55 Serum or plasma protein measurement (mass/volume) 5.8 g/dL 6.4-8.2 Serum or plasma albumin measurement (mass/volume) 2.8 g/dL 3.2-4.5 Serum or plasma phosphate measurement (m ass/volume) - 08/19/17 05:50 Serum or plasma phosphate measurement (mass/volume) 3.1 mg/dL 2.3-4.7 Magnesium - 08/19/17 05:50 Magnesium 1.4 mg/dL 1.8-2.4 Capillary blood glucose measurement by g lucometer (mass/volume) - 08/19/17 10:53 Capillary blood glucose measurement by glucometer (mas s/volume) 114 mg/dL 70-110 Bacterial blood culture - 10/25/17 14:10 Bacterial blood culture NG NRG Complete blood count (CBC) with automate d white blood cell (WBC) differential - 10/25/17 14:20 Blood leukocytes automated count (number/volume) 20.6 10*3/uL 4.3-11.0 Blood erythrocytes automated count (number/volume) 4.41 10*6/uL 4.35-5.85 Venous blood hemoglobin measurement (mass/volume) 13.7 g/dL 13.3-17.7 Blood hematocrit (volume fraction) 42 % 40-54 Automated erythrocyte mean corpuscular volume 94 [ foz_us] 80-99 Automated erythrocyte mean corpuscular h emoglobin (mass per erythrocyte) 31 pg 25-34 Automated erythrocyte mean corpuscular h emoglobin concentration measurement (mass/volume) 33 g/dL 32-36 Automated erythrocyte distribution width ratio 16. 7 % 10.0- 14.5 Automated blood platelet count (count/volume) 92 1 0*3/uL 130-400 Automated blood platelet mean volume measurement 10.3 [foz_us] 7.4-10.4 Automated blood neutrophils/100 leukocytes 79 % 42-75 Automated blood lymphocytes/100 leukocytes 6 % 12-44 Blood monocytes/100 leukocytes 16 % 0-12 Automated blood eosinophils/100 leukocytes 0 % 0-10 Automated blood basophils/100 leukocytes 0 % 0-10 Blood neutrophils automated count (number/volume) 16.2 10*3 1.8-7.8 Blood lymphocytes automated count (number/volume) 1.1 10*3 1.0-4.0 Blood monocytes automated count (number/volume) 3. 3 10*3 0.0-1.0 Automated eosinophil count 0.0 10*3/uL 0 .0-0.3 Automated blood basophil count (count/volume) 0.0 10*3/uL 0.0-0.1 Blood lactic acid measurement (moles/vol ume) - 10/25/17 14:20 Blood lactic acid measurement (moles/volume) 3.35 mmol/L 0.50-2.00 Comprehensive metabolic panel - 10/25/17 14:20 Serum or plasma sodium measurement (moles/volume) 139 mmol/L 135-145 Serum or plasma potassium measurement (moles/volume) 4.3 mmol/L 3.6-5.0 Serum or plasma chloride measurement (moles/volume) 104 mmol/L 98-107 Carbon dioxide 20 mmol/L 21-32 Serum or plasma anion gap determination (moles/volume) 15 mmol/L 5-14 Serum or plasma urea nitrogen measurement (mass/volume ) 25 mg/dL 7-18 Serum or plasma creatinine measurement (mass/volume) 1.12 mg/dL 0.60-1.30 Serum or plasma urea nitrogen/creatinine mass ratio 22 NRG Serum or plasma creatinine measurement w ith calculation of estimated glomerular filtration rate > NRG Serum or plasma glucose measurement (mass/volume) 76 mg/dL 70-105 Serum or plasma calcium measurement (mass/volume) 10.1 mg/dL 8.5-10.1 Serum or plasma total bilirubin measurement (mass/volu me) 1.0 mg/dL 0.1-1.0 Serum or plasma alkaline phosphatase spencer surement (enzymatic activity/volume) 78 U/L 40-136 Serum or plasma aspartate aminotransfera se measurement (enzymatic activity/volume) 80 U/L 5-34 Serum or plasma alanine aminotransferase measurement (enzymatic activity/volume) 57 U/L 0-55 Serum or plasma protein measurement (mass/volume) 8.3 g/dL 6.4-8.2 Serum or plasma albumin measurement (mass/volume) 4.0 g/dL 3.2-4.5 CALCIUM CORRECTED 10.1 mg/dL 8.5-10.1 Blood manual differential performed dete ction - 10/25/17 14:20 Blood monocytes/100 leukocytes 20 % NRG Manual blood segmented neutrophils/100 leukocytes 56 % NRG Blood band neutrophils/100 leukocytes 21 % NRG Manual blood lymphocytes/100 leukocytes 3 % NRG Manual eosinophils/100 leukocytes in nose 0 % NRG Manual blood basophils/100 leukocytes 0 % NRG Blood erythrocyte morphology finding identification NORMAL NRG Blood toxic granules detection by light microscopy 1+ NRG Bacterial blood culture - 10/25/17 14:20 Bacterial blood culture NG NRG Complete urinalysis with reflex to cultu re - 10/25/17 14:30 Urine color determination JAKUB NRG Urine clarity determination VERY CLOUDY NRG Urine pH measurement by test strip 5 5-9 Specific gravity of urine by test strip 1.025 1.016-1.022 Urine protein assay by test strip, semi-quantitative 3+ NEGATIVE Urine glucose detection by automated test strip NE GATIVE NEGATIVE Erythrocytes detection in urine sediment by light micr oscopy 3+ NEGATIVE Urine ketones detection by automated test strip 2+ NEGATIVE Urine nitrite detection by test strip POSITIVE NEGATIVE Urine total bilirubin detection by test strip 2+ NEGATIVE Urine urobilinogen measurement by automated test strip (mass/volume) 4 mg/dL NORMAL Urine leukocyte esterase detection by dipstick 3+ NEGATIVE Automated urine sediment erythrocyte cou nt by microscopy (number/high power field) [HPF] NRG Automated urine sediment leukocyte count by microscopy (number/high power field) TNTC NRG Bacteria detection in urine sediment by light microsco py FEW NRG Squamous epithelial cells detection in u rine sediment by light microscopy NONE NRG Crystals detection in urine sediment by light microsco py NONE NRG Casts detection in urine sediment by light microscopy NONE NRG Mucus detection in urine sediment by light microscopy NEGATIVE NRG Complete urinalysis with reflex to culture YES NRG Bacterial urine culture - 10/25/17 14:30 Bacterial urine culture NG NRG Capillary blood glucose measurement by g lucometer (mass/volume) - 10/25/17 16:17 Capillary blood glucose measurement by glucometer (mas s/volume) 103 mg/dL 70-110 Serum or plasma lactate measurement (mol es/volume) - 10/25/17 16:18 Serum or plasma lactate measurement (moles/volume) 3.98 mmol/L 0.50-2.00 Blood lactic acid measurement (moles/vol ume) - 10/25/17 19:10 Blood lactic acid measurement (moles/volume) 6.10 mmol/L 0.50-2.00 Serum or plasma lactate measurement (mol es/volume) - 10/25/17 21:20 Serum or plasma lactate measurement (moles/volume) 3.04 mmol/L 0.50-2.00 Complete blood count (CBC) with automate d white blood cell (WBC) differential - 10/26/17 03:00 Blood leukocytes automated count (number/volume) 17.9 10*3/uL 4.3-11.0 Blood erythrocytes automated count (number/volume) 3.43 10*6/uL 4.35-5.85 Venous blood hemoglobin measurement (mass/volume) 10.5 g/dL 13.3-17.7 Blood hematocrit (volume fraction) 33 % 40-54 Automated erythrocyte mean corpuscular volume 95 [ foz_us] 80-99 Automated erythrocyte mean corpuscular h emoglobin (mass per erythrocyte) 31 pg 25-34 Automated erythrocyte mean corpuscular h emoglobin concentration measurement (mass/volume) 32 g/dL 32-36 Automated erythrocyte distribution width ratio 16. 7 % 10.0- 14.5 Automated blood platelet count (count/volume) 84 1 0*3/uL 130-400 Automated blood platelet mean volume measurement 10.4 [foz_us] 7.4-10.4 Automated blood neutrophils/100 leukocytes 72 % 42-75 Automated blood lymphocytes/100 leukocytes 13 % 12-44 Blood monocytes/100 leukocytes 15 % 0-12 Automated blood eosinophils/100 leukocytes 0 % 0-10 Automated blood basophils/100 leukocytes 0 % 0-10 Blood neutrophils automated count (number/volume) 12.9 10*3 1.8-7.8 Blood lymphocytes automated count (number/volume) 2.2 10*3 1.0-4.0 Blood monocytes automated count (number/volume) 2. 7 10*3 0.0-1.0 Automated eosinophil count 0.0 10*3/uL 0 .0-0.3 Automated blood basophil count (count/volume) 0.0 10*3/uL 0.0-0.1 Comprehensive metabolic panel - 10/26/17 03:00 Serum or plasma sodium measurement (moles/volume) 138 mmol/L 135-145 Serum or plasma potassium measurement (moles/volume) 3.6 mmol/L 3.6-5.0 Serum or plasma chloride measurement (moles/volume) 109 mmol/L 98-107 Carbon dioxide 21 mmol/L 21-32 Serum or plasma anion gap determination (moles/volume) 8 mmol/L 5-14 Serum or plasma urea nitrogen measurement (mass/volume ) 21 mg/dL 7-18 Serum or plasma creatinine measurement (mass/volume) 0.83 mg/dL 0.60-1.30 Serum or plasma urea nitrogen/creatinine mass ratio 25 NRG Serum or plasma creatinine measurement w ith calculation of estimated glomerular filtration rate > NRG Serum or plasma glucose measurement (mass/volume) 81 mg/dL 70-105 Serum or plasma calcium measurement (mass/volume) 8.5 mg/dL 8.5-10.1 Serum or plasma total bilirubin measurement (mass/volu me) 0.8 mg/dL 0.1-1.0 Serum or plasma alkaline phosphatase spencer surement (enzymatic activity/volume) 55 U/L 40-136 Serum or plasma aspartate aminotransfera se measurement (enzymatic activity/volume) 55 U/L 5-34 Serum or plasma alanine aminotransferase measurement (enzymatic activity/volume) 39 U/L 0-55 Serum or plasma protein measurement (mass/volume) 6.5 g/dL 6.4-8.2 Serum or plasma albumin measurement (mass/volume) 3.2 g/dL 3.2-4.5 CALCIUM CORRECTED 9.1 mg/dL 8.5-10.1 Serum or plasma phosphate measurement (m ass/volume) - 10/26/17 03:00 Serum or plasma phosphate measurement (mass/volume) 2.4 mg/dL 2.3-4.7 Magnesium - 10/26/17 03:00 Magnesium 1.2 mg/dL 1.8-2.4 Blood lactic acid measurement (moles/vol ume) - 10/26/17 05:10 Blood lactic acid measurement (moles/volume) 1.71 mmol/L 0.50-2.00 Capillary blood glucose measurement by g lucometer (mass/volume) - 10/26/17 12:35 Capillary blood glucose measurement by glucometer (mas s/volume) 87 mg/dL 70-110 Capillary blood glucose measurement by g lucometer (mass/volume) - 10/26/17 16:43 Capillary blood glucose measurement by glucometer (mas s/volume) 136 mg/dL 70-110 Capillary blood glucose measurement by g lucometer (mass/volume) - 10/26/17 22:05 Capillary blood glucose measurement by glucometer (mas s/volume) 134 mg/dL 70-110 Complete blood count (CBC) with automate d white blood cell (WBC) differential - 10/27/17 03:06 Blood leukocytes automated count (number/volume) 13.8 10*3/uL 4.3-11.0 Blood erythrocytes automated count (number/volume) 3.29 10*6/uL 4.35-5.85 Venous blood hemoglobin measurement (mass/volume) 10.1 g/dL 13.3-17.7 Blood hematocrit (volume fraction) 31 % 40-54 Automated erythrocyte mean corpuscular volume 94 [ foz_us] 80-99 Automated erythrocyte mean corpuscular h emoglobin (mass per erythrocyte) 31 pg 25-34 Automated erythrocyte mean corpuscular h emoglobin concentration measurement (mass/volume) 33 g/dL 32-36 Automated erythrocyte distribution width ratio 16. 0 % 10.0- 14.5 Automated blood platelet count (count/volume) 85 1 0*3/uL 130-400 Automated blood platelet mean volume measurement 10.7 [foz_us] 7.4-10.4 Automated blood neutrophils/100 leukocytes 77 % 42-75 Automated blood lymphocytes/100 leukocytes 12 % 12-44 Blood monocytes/100 leukocytes 11 % 0-12 Automated blood eosinophils/100 leukocytes 0 % 0-10 Automated blood basophils/100 leukocytes 0 % 0-10 Blood neutrophils automated count (number/volume) 10.6 10*3 1.8-7.8 Blood lymphocytes automated count (number/volume) 1.7 10*3 1.0-4.0 Blood monocytes automated count (number/volume) 1. 5 10*3 0.0-1.0 Automated eosinophil count 0.1 10*3/uL 0 .0-0.3 Automated blood basophil count (count/volume) 0.0 10*3/uL 0.0-0.1 Whole blood basic metabolic panel - 10/09 03:06 Serum or plasma sodium measurement (moles/volume) 136 mmol/L 135-145 Serum or plasma potassium measurement (moles/volume) 3.6 mmol/L 3.6-5.0 Serum or plasma chloride measurement (moles/volume) 108 mmol/L 98-107 Carbon dioxide 20 mmol/L 21-32 Serum or plasma anion gap determination (moles/volume) 8 mmol/L 5-14 Serum or plasma urea nitrogen measurement (mass/volume ) 12 mg/dL 7-18 Serum or plasma creatinine measurement (mass/volume) 0.76 mg/dL 0.60-1.30 Serum or plasma urea nitrogen/creatinine mass ratio 16 NRG Serum or plasma creatinine measurement w ith calculation of estimated glomerular filtration rate > NRG Serum or plasma glucose measurement (mass/volume) 101 mg/dL 70-105 Serum or plasma calcium measurement (mass/volume) 8.6 mg/dL 8.5-10.1 Serum or plasma phosphate measurement (m ass/volume) - 10/27/17 03:06 Serum or plasma phosphate measurement (mass/volume) 2.2 mg/dL 2.3-4.7 Magnesium - 10/27/17 03:06 Magnesium 1.4 mg/dL 1.8-2.4 Comprehensive metabolic panel - 10/27/17 03:06 Serum or plasma sodium measurement (moles/volume) 136 mmol/L 135-145 Serum or plasma potassium measurement (moles/volume) 3.6 mmol/L 3.6-5.0 Serum or plasma chloride measurement (moles/volume) 108 mmol/L 98-107 Carbon dioxide 21 mmol/L 21-32 Serum or plasma anion gap determination (moles/volume) 7 mmol/L 5-14 Serum or plasma urea nitrogen measurement (mass/volume ) 12 mg/dL 7-18 Serum or plasma creatinine measurement (mass/volume) 0.75 mg/dL 0.60-1.30 Serum or plasma urea nitrogen/creatinine mass ratio 16 NRG Serum or plasma creatinine measurement w ith calculation of estimated glomerular filtration rate > NRG Serum or plasma glucose measurement (mass/volume) 102 mg/dL 70-105 Serum or plasma calcium measurement (mass/volume) 8.4 mg/dL 8.5-10.1 Serum or plasma total bilirubin measurement (mass/volu me) 0.7 mg/dL 0.1-1.0 Serum or plasma alkaline phosphatase spencer surement (enzymatic activity/volume) 59 U/L 40-136 Serum or plasma aspartate aminotransfera se measurement (enzymatic activity/volume) 48 U/L 5-34 Serum or plasma alanine aminotransferase measurement (enzymatic activity/volume) 36 U/L 0-55 Serum or plasma protein measurement (mass/volume) 5.8 g/dL 6.4-8.2 Serum or plasma albumin measurement (mass/volume) 3.0 g/dL 3.2-4.5 CALCIUM CORRECTED 9.2 mg/dL 8.5-10.1 Capillary blood glucose measurement by g lucometer (mass/volume) - 10/27/17 10:54 Capillary blood glucose measurement by glucometer (mas s/volume) 97 mg/dL 70-110 Capillary blood glucose measurement by g lucometer (mass/volume) - 10/27/17 15:11 Capillary blood glucose measurement by glucometer (mas s/volume) 94 mg/dL 70-110 Capillary blood glucose measurement by g lucometer (mass/volume) - 10/27/17 20:46 Capillary blood glucose measurement by glucometer (mas s/volume) 140 mg/dL 70-110 Complete blood count (CBC) with automate d white blood cell (WBC) differential - 10/28/17 03:33 Blood leukocytes automated count (number/volume) 8.9 10*3/uL 4.3-11.0 Blood erythrocytes automated count (number/volume) 3.25 10*6/uL 4.35-5.85 Venous blood hemoglobin measurement (mass/volume) 9.9 g/dL 13.3-17.7 Blood hematocrit (volume fraction) 31 % 40-54 Automated erythrocyte mean corpuscular volume 95 [ foz_us] 80-99 Automated erythrocyte mean corpuscular h emoglobin (mass per erythrocyte) 30 pg 25-34 Automated erythrocyte mean corpuscular h emoglobin concentration measurement (mass/volume) 32 g/dL 32-36 Automated erythrocyte distribution width ratio 16. 0 % 10.0- 14.5 Automated blood platelet count (count/volume) 80 1 0*3/uL 130-400 Automated blood platelet mean volume measurement 11.2 [foz_us] 7.4-10.4 Automated blood neutrophils/100 leukocytes 73 % 42-75 Automated blood lymphocytes/100 leukocytes 15 % 12-44 Blood monocytes/100 leukocytes 12 % 0-12 Automated blood eosinophils/100 leukocytes 1 % 0-10 Automated blood basophils/100 leukocytes 0 % 0-10 Blood neutrophils automated count (number/volume) 6.4 10*3 1.8-7.8 Blood lymphocytes automated count (number/volume) 1.3 10*3 1.0-4.0 Blood monocytes automated count (number/volume) 1. 0 10*3 0.0-1.0 Automated eosinophil count 0.1 10*3/uL 0 .0-0.3 Automated blood basophil count (count/volume) 0.0 10*3/uL 0.0-0.1 Comprehensive metabolic panel - 10/28/17 03:33 Serum or plasma sodium measurement (moles/volume) 138 mmol/L 135-145 Serum or plasma potassium measurement (moles/volume) 3.4 mmol/L 3.6-5.0 Serum or plasma chloride measurement (moles/volume) 109 mmol/L 98-107 Carbon dioxide 20 mmol/L 21-32 Serum or plasma anion gap determination (moles/volume) 9 mmol/L 5-14 Serum or plasma urea nitrogen measurement (mass/volume ) 8 mg/dL 7-18 Serum or plasma creatinine measurement (mass/volume) 0.64 mg/dL 0.60-1.30 Serum or plasma urea nitrogen/creatinine mass ratio 13 NRG Serum or plasma creatinine measurement w ith calculation of estimated glomerular filtration rate > NRG Serum or plasma glucose measurement (mass/volume) 103 mg/dL 70-105 Serum or plasma calcium measurement (mass/volume) 8.5 mg/dL 8.5-10.1 Serum or plasma total bilirubin measurement (mass/volu me) 0.8 mg/dL 0.1-1.0 Serum or plasma alkaline phosphatase spencer surement (enzymatic activity/volume) 64 U/L 40-136 Serum or plasma aspartate aminotransfera se measurement (enzymatic activity/volume) 68 U/L 5-34 Serum or plasma alanine aminotransferase measurement (enzymatic activity/volume) 39 U/L 0-55 Serum or plasma protein measurement (mass/volume) 6.0 g/dL 6.4-8.2 Serum or plasma albumin measurement (mass/volume) 2.8 g/dL 3.2-4.5 CALCIUM CORRECTED 9.5 mg/dL 8.5-10.1 Serum or plasma phosphate measurement (m ass/volume) - 10/28/17 03:33 Serum or plasma phosphate measurement (mass/volume) 2.9 mg/dL 2.3-4.7 Magnesium - 10/28/17 03:33 Magnesium 1.7 mg/dL 1.8-2.4 Capillary blood glucose measurement by g lucometer (mass/volume) - 10/28/17 11:12 Capillary blood glucose measurement by glucometer (mas s/volume) 89 mg/dL 70-110 Hemoglobin A1C - 02/10/18 13:43 % A1C 8.50 % 5.40-6.60 AvGlu 225 mg/dL 70-110 MRSA Screen - 02/10/18 13:43 FINAL CULTURE RESULTS MRSA Negative Nasal Culture MEDIA PLATED Setup at 14:17 on 02/10/2018 Lipid Panel - 02/11/18 05:30 C/HDL 7.6 3.7-6.7 Cholesterol 144 mg/dL 100-240 HDL 19 mg/dL 30-85 LDL-Calculated 100 mg/dL 0-100 Trig 123 mg/dL 35-160 VLDL 25 mg/dL 0-42 Levetiracetam (Keppra), S - 03/20/18 14: 10 Levetiracetam, S 14.5 ug/mL 10.0-40.0 Valproic Acid - 03/20/18 14:10 Valproic Acid 61.8 ug/mL 55.0-105.0 MRSA Screen - 03/20/18 14:10 FINAL CULTURE RESULTS MRSA Negative Nasal Culture MEDIA PLATED Setup at 14:53 on 03/20/2018 Levetiracetam (Keppra), S - 03/20/18 14: 10 LEVETIRACETAM, S 14.5 UG/ML 10.0-40.0 Lipid Panel - 03/21/18 05:10 C/HDL 8.1 3.7-6.7 Cholesterol 114 mg/dL 100-240 HDL 14 mg/dL 30-85 LDL-Calculated 79 mg/dL 0-100 Trig 103 mg/dL 35-160 VLDL 21 mg/dL 0-42 Rapid Drug Screen + ETOH,Medical - 03/21 06:48 Amphetamine NEGATIVE NEGATIVE Barbiturates NEGATIVE NEGATIVE Benzodiazepines NEGATIVE NEGATIVE Cocaine NEGATIVE NEGATIVE Ethanol, Urine <10.00 mg/dL 20.00-80.00 Marijuana NEGATIVE NEGATIVE Methylenedioxymethamphetamine NEGATIVE NEGATIVE Opiates NEGATIVE NEGATIVE Oxycodone NEGATIVE NEGATIVE Phencyclidine NEGATIVE NEGATIVE Propoxyphene NEGATIVE NEGATIVE Tricyclic Antidepressant NEGATIVE NEGAT SLIME Comprehensive Metabolic Panel - 03/27/18 05:00 Albumin 3.4 g/dL 3.6-5.1 ALP 101 U/L 35-130 ALT 42 U/L 6-45 Anion Gap 14 6-14 AST 57 U/L 2-40 BUN 22 mg/dL 5-25 Calcium 9.2 mg/dL 8.3-10.4 Chloride 103 mmol/L 95-114 CO2 26 mEq/L 22-33 Creat 1.16 mg/dL 0.50-1.50 eGFR 64 mL/min/1.73m2 >59 Globulin 4.0 g/dL 2.3-3.5 Glucose 235 mg/dL 70-110 Osmo 297 280-295 Potassium 4.2 mmol/L 3.5-5.3 Sodium 139 mmol/L 134-148 TBil 0.6 mg/dL 0.2-1.2 TP 7.4 g/dL 6.0-8.3 Complete urinalysis with reflex to cultu re - 03/17/19 17:07 Urine color determination YELLOW NRG Urine clarity determination CLEAR NR G Urine pH measurement by test strip 8.0 5-9 Specific gravity of urine by test strip 1.020 1.016-1.022 Urine protein assay by test strip, semi-quantitative NEGATIVE NEGATIVE Urine glucose detection by automated test strip 3+ NEGATIVE Erythrocytes detection in urine sediment by light micr oscopy NEGATIVE NEGATIVE Urine ketones detection by automated test strip NE GATIVE NEGATIVE Urine nitrite detection by test strip NEGATIVE NEGATIVE Urine total bilirubin detection by test strip NEGA TIVE NEGATIVE Urine urobilinogen measurement by automated test strip (mass/volume) 4.0 mg/dL < = 1.0 Urine leukocyte esterase detection by dipstick NEG ATIVE NEGATIVE Automated urine sediment erythrocyte cou nt by microscopy (number/high power field) NONE NRG Automated urine sediment leukocyte count by microscopy (number/high power field) RARE NRG Bacteria detection in urine sediment by light microsco py NEGATIVE NRG Squamous epithelial cells detection in u rine sediment by light microscopy RARE NRG Crystals detection in urine sediment by light microsco py NONE NRG Casts detection in urine sediment by light microscopy NONE NRG Mucus detection in urine sediment by light microscopy NEGATIVE NRG Complete urinalysis with reflex to culture NO NRG Influenza virus A and B antigen detectio n - 03/30/19 18:20 FLU RESULT NEGATIVE FOR INFLUENZA A AND B ANTIGENS BY IA NRG Encounters ACCT No. Visit Date/Time Discharge Status Pt. Type Provider Facility Loc./Unit Complaint [id number] 03/22/2018 21:07:00 Document Registration [id number] 03/30/2019 18:53:00 020 23:59:59 CLS Outpatient ROBBIN PINZON MD [facility] FLU SWAB [id number] 03/17/2019 19:06:00 020 23:59:59 CLS Outpatient ROBBIN PINZON MD [facility] [id number] 10/25/2017 12:35:00 018 14:35:00 DIS Inpatient MARILYN SY, JUSTINO Paredes [facility] ICU PNEUMONIA [id number] 08/16/2017 19:40:00 018 13:19:00 DIS Inpatient BHAVANA BERRIOS MD [facility] 4TH LEFT LOWER LOBE PNA;SEP SIS [id number] 08/06/2019 13:13:[address] Emergency CHICHI SY, AARON Villarreal [facility] ER SEIZURE [id number] 03/20/2018 15:25:00 Document Registration [id number] 03/20/2018 15:25:00 03/30/2018 10:25: 00 DIS Inpatient AARON SOTO [facility] [id number] 02/10/2018 15:05:00 02/16/2018 15:12: 00 DIS Inpatient AARON SOTO [facility] [id number] 02/10/2018 13:34:36 Document Registration
[2019-08-06 15:18] LABS: BACTERIA,URINE NEGATIVE /HPF; SQUAMOUS EPITHELIAL CELL,UR 0-2 /HPF
--- NOTE | 2019-08-06 15:19 | Diagnostic Imaging Report ---
INDICATION: Fever and possible seizure. Frontal chest obtained at 03:04 p.m. and compared to 10/27/2017. Heart is normal in size. Pacemaker is unchanged. There is mild central vascular prominence which is similar to the prior study. There is some linear scarring or atelectasis in the left lateral base. This also appeared similar on the prior study. There is some linear scarring or atelectasis in the right medial base. There is no new consolidation or pleural fluid. There is no pneumothorax. IMPRESSION: Mild central vascular prominence. There are bibasilar areas of scarring or atelectasis which are similar to the previous study. There is no new consolidation or pleural fluid. Dictated by: Dictated on workstation # [id number]
[2019-08-06] MEDS ORDERED: CEFEPIME INJECTION 2,000 MG in WATER (STERILE) FOR INJECTION 20 ML IV ONE (15:45)
[2019-08-06] MEDS ORDERED: NS IV 500 ML 500 ML IV ONE (15:57)
[2019-08-06] MEDS ORDERED: NS (IVPB) 50 ML ONE (15:58)
[2019-08-06] MEDS ORDERED: NS IV 1000 ML 1,000 ML IV SCH (15:58)
[2019-08-06 16:40] VITALS: BP 124/84
[2019-08-06] MEDS ORDERED: ONDANSETRON 4 MG/2 ML (SDV) Z0FRAN IV PRN (17:15)
[2019-08-06] MEDS ORDERED: ACETAMINOPHEN 650 MG SUPP (TYLENOL) PR PRN (17:15)
[2019-08-06] MEDS ORDERED: CATHETER FLUSH 10 ML SYR IV PRN (17:15)
[2019-08-06 18:31] VITALS: BP 126/84
--- OUTSIDE RECORDS SUMMARY | 2019-08-06 19:51 | XMS REPORT | Continuity of Care Document ---
Demographics Preferred Language Unknown Marital Status Unknown Zoroastrianism Affiliation Unknown Race Unknown Ethnic Group Unknown Author Organization Unknown Address Unknown Phone Unavailable Allergies Active Description Code Type Severity Reaction Onset Reported/Identified Relationship to Patient Clinical Status Yes NO KNOWN DRUG ALLERGIES UNKNOWN NO KNOWN DRUG ALLERG Yes No Known Drug Allergies [id number] Drug Allergy Unknown N/A 01/12/2007 Medications Medication Packaging Start Date St op Date Route Dosage Sig Flu vacc [id number] Persons 6 mo T older(PF) IM syringe/vial(Fluarix [...] Ot J18 .9 PNEUMONIA, UNSPECIFIED ORGANISM 08/18/2017 HBAVANA BERRIOS MD Ot R65.21 SEVERE SEPSIS WITH SEPTIC SHOCK 08/18/2017 BHAVANA BERRIOS MD Ot Z66 DO NOT RESUSCITATE 08/18/2017 BHAVANA BERRIOS MD Ot Z79.84 INTERMEDIATE (CURRENT) USE OF ORAL HYPOGLYC 08/18/2017 BHAVANA [...] RESUSCITATE 08/18/2017 BHAVANA BERRIOS MD Ot 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 [facility] Bacterial blood culture SEE [facility]EN [facility] Arterial blood gas measurement - 8 17:53 [...] Status Pt. Type Provider Facility Loc./Unit Complaint [id number] 03/22/2018 21:07:00 Document Registration [id number] 03/30/2019 18:53:00 020 23:59:59 CLS Outpatient ROBBIN PINZON MD [facility] FLU SWAB [id number] 03/17/2019 19:06:00 020 23:59:59 CLS Outpatient ROBBIN PINZON MD [facility] [id number] 10/25/2017 12:35:00 018 14:35:00 DIS Inpatient MARILYN SY, JUSTINO Paredes [facility] ICU PNEUMONIA [id number] 08/16/2017 19:40:00 018 13:19:00 DIS Inpatient BHAVANA BERRIOS MD [facility] 4TH LEFT LOWER LOBE PNA;SEP SIS [id number] 08/06/2019 15:56:[address] Inpatient ANGELIC ELLER MD [facility] 4TH SEVERE SEPSIS,V-TACH [id number] 03/20/2018 15:25:00 Document Registration [id number] 03/20/2018 15:25:00 03/30/2018 10:25: 00 DIS Inpatient AARON SOTO [facility] [id number] 02/10/2018 15:05:00 02/16/2018 15:12: 00 DIS Inpatient AARON SOTO [facility] [id number] 02/10/2018 13:34:36 Document Registration
[2019-08-06 20:00] VITALS: BP 121/83
[2019-08-06] MEDS: CEFEPIME 1,000 MG/SWFI 10 ML IV PUSH IV SCH ×2 (23:58)
[2019-08-07 00:04] VITALS: BP 121/74
[2019-08-07] MEDS: NS IV 1000 ML 1,000 ML IV SCH ×4 (01:54→09:10)
[2019-08-07 04:00] VITALS: BP 126/76
[2019-08-07 04:52] LABS: BASOPHILS % (AUTO) 0 % (0-10); EOSINOPHILS # (AUTO) 0.1 10^3/uL (0.0-0.3); EOSINOPHILS % (AUTO) 1 % (0-10); HEMATOCRIT 30 % (40-54); HEMOGLOBIN 9.4 G/DL (13.3-17.7); LYMPHOCYTES # (AUTO) 2.3 X 10^3 (1.0-4.0); LYMPHOCYTES % (AUTO) 19 % (12-44); MEAN CORPUSCULAR HEMOGLOBIN 27 PG (25-34); MEAN CORPUSCULAR HGB CONC 31 G/DL (32-36); MEAN CORPUSCULAR VOLUME 88 FL (80-99); MEAN PLATELET VOLUME 9.8 FL (7.4-10.4); MONOCYTES # (AUTO) 1.8 X 10^3 (0.0-1.0); MONOCYTES % (AUTO) 14 % (0-12); NEUTROPHILS % (AUTO) 66 % (42-75); PLATELET COUNT 163 10^3/uL (130-400); RED CELL DISTRIBUTION WIDTH 16.7 % (10.0-14.5); WHITE BLOOD COUNT 12.2 10^3/uL (4.3-11.0)
[2019-08-07 04:59] LABS: ALBUMIN 2.7 GM/DL (3.2-4.5); CHLORIDE 113 MMOL/L (98-107); POTASSIUM 3.2 MMOL/L (3.6-5.0)
[2019-08-07 05:00] LABS: SODIUM 140 MMOL/L (135-145)
[2019-08-07] MEDS: CEFEPIME 1,000 MG/SWFI 10 ML IV PUSH IV SCH ×6 (05:00→18:47)
[2019-08-07 05:01] LABS: CALCIUM 7.9 MG/DL (8.5-10.1)
[2019-08-07 05:02] LABS: GLUCOSE 100 MG/DL (70-105); TOTAL PROTEIN 6.2 GM/DL (6.4-8.2)
[2019-08-07 05:03] LABS: CARBON DIOXIDE 19 MMOL/L (21-32)
[2019-08-07 05:04] LABS: BILIRUBIN,TOTAL 0.9 MG/DL (0.1-1.0)
[2019-08-07 05:05] LABS: ALKALINE PHOSPHATASE 87 U/L (40-136)
[2019-08-07 05:06] LABS: BUN/CREATININE RATIO 22; CREATININE SERUM 0.65 MG/DL (0.60-1.30); GFR ESTIMATED > 60
[2019-08-07 05:08] LABS: ALANINE AMINOTRANSFERASE 32 U/L (0-55)
[2019-08-07 09:11] VITALS: BP 123/74
[2019-08-07 12:00] VITALS: BP 148/82
--- NOTE | 2019-08-07 13:16 | History & Physical-Hospitalist ---
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 He is unable to provide any meaningful history and can answer some yes or no questions. He denies any pain. He is unable to tell me why he is here. All information is garnered from the chart. Per ER note: "[facility] staff reported that he has had violent tremors for about 25 minutes prior to EMS arrival. However, he was alert during this episode and was able to answer questions. He does have a history of seizure disorder and takes medications. No fever was noted by the care home, EMS, or on arrival, but he did develop fever shortly after arrival. Patient has severe neurologic deficits from prior stroke. He has right-sided paralysis and has cognitive deficits. He does not carry on meaningful conversations and cannot care for himself. EMS administered Versed 5 mg intranasally to help calm down the tremors. [facility] staff notes some stage I decubitus ulcers on the ankle and buttock. No obvious external source of infection is known." He has had no further episodes since admission. He was found to have a lactic acidosis and fever though. Source: patient Date Seen 08/07/19 Time Seen by a Provider: 13:11 Attending Physician Talita Kelly MD PCP Pito Gallardo DO Referring Physician Date of Admission Aug 06, 2019 at 15:56 Home Medications & Allergies Home Medications Reviewed patient Home Medication Reconciliation performed by pharmacy medication reconciliations automotive technician and/or nursing. Patients Allergies have been reviewed. Allergies Allergies Coded Allergies No Known Drug Allergies (Verified07/25/07) Past Phmfbue-Aznnvx-Euhxbe Hx Past Med/Social Hx: Reviewed and Corrections made Patient Social History Employed/Student: retired Alcohol Use: Denies Use Recreational Drug Use: Yes Drug of Choice: HX OF METH USE Smoking Status: Former Smoker Type Used: Cigarettes Recent Foreign Travel: No Contact w/other who traveled: No Recent Hopitalizations: Yes (APRIL 2017 IN [place], AUGUST 2017) Recent Infectious Disease Expo: No Immunizations Up To Date Pediatric: Yes Date of Pneumonia Vaccine: Nov 07, 2016 Seasonal Allergies Seasonal Allergies: No Past Medical History Surgeries: Abdominal, Defibrillator, Pacemaker Currently Using CPAP: No Currently Using BIPAP: No Cardiac: Atrial Fibrillation, Cardiomyopathy Neurological: Stroke Sexually Transmitted Disease: No HIV/AIDS: No Genitourinary: Kidney Infection, UTI-Chronic Endocrine: Diabetes, Non-Insulin dep History of Blood Disorders: No (HX OF HEP C) Adverse Reaction to Blood [place]: No Family History Reviewed Nursing Family Hx Patient reports no known family medical history. Family, past surgical and medical history obtained from records as patient is unable to answer questions. Review of Systems ROS-Unable to Obtain: limited by dementia/aphasia Constitutional: fever Psychiatric/Neurological: Seizure Physical Exam Physical Exam Vital Signs Vital Signs - First Documented 08/06/19 13:38 Temp 39.2 Pulse 140 Resp 20 B/P (MAP) 124/87 (99) Pulse Ox 96 O2 Delivery Room Air Capillary Refill : Less Than 3 Seconds Height, Weight, BMI Height: 6'0.00" Weight: 166lbs. 0.0oz. 75.680018gq; 23.73 BMI Method:Estimated General Appearance: No Apparent Distress, Chronically ill Neck: Normal Inspection, Supple Respiratory: Lungs Clear, No Accessory Muscle Use, No Respiratory Distress Cardiovascular: Regular Rate, Rhythm, No Murmur Gastrointestinal: Normal Bowel Sounds, Non Tender, Soft Extremity: No Calf Tenderness, No Pedal Edema Neurologic/Psychiatric: Alert, Aphasia; No Facial Droop Results Results/Procedures Labs Laboratory Tests 08/06/19 13:15 08/07/19 04:30 Patient resulted labs reviewed. Imaging: Reviewed Imaging Report Imaging [facility], [place], [place] NAME: EDYTA HODGSON [facility] REC#: [id number] PT STATUS: ADM IN : 1955 PHYSICIAN: AARON CADET MD ADMIT DATE: 08/06/19 Signed Date of Exam:08/06/19 CHEST 1 VIEW, AP/PA ONLY INDICATION: Fever and possible seizure. Frontal chest obtained at 03:04 p.m. and compared to 10/27/2017. Heart is normal in size. Pacemaker is unchanged. There is mild central vascular prominence which is similar to the prior study. There is some linear scarring or atelectasis in the left lateral base. This also appeared similar on the prior study. There is some linear scarring or atelectasis in the right medial base. There is no new consolidation or pleural fluid. There is no pneumothorax. IMPRESSION: Mild central vascular prominence. There are bibasilar areas of scarring or atelectasis which are similar to the previous study. There is no new consolidation or pleural fluid. Dictated by: Dictated on workstation # [id number] Dict: 08/06/19 1515 Trans: 08/06/19 1619 [id number] Interpreted by: NOLA NG MD Electronically signed by: NOLA NG MD 08/06/19 1619 Assessment/Plan Admission Diagnosis Severe Sepsis Admission Status: Inpatient Order (span 2 midnights) Reason for Inpatient Admission: iv abx Assessment and Plan Severe Sepsis Etiology unclear at this time Continue IV abx lactic acidosis resolved Await cultures Seizure disorder Dementia h/o CVA with deficit Continue home meds PT/OT IDDMII Continue home insulin SSI JUSTINO SANDERS MD Aug 07, 2019 13:16
[2019-08-07] MEDS ORDERED: OLAN10VI IM (13:56)
[2019-08-07] MEDS ORDERED: PARO40TA3 PO (13:56)
[2019-08-07] MEDS ORDERED: LACT20SO2 PO (13:56)
[2019-08-07] MEDS ORDERED: INSU100V5 SQ (13:56)
[2019-08-07] MEDS ORDERED: DEXT1DRO7 OP (13:56)
[2019-08-07] MEDS ORDERED: MOM10U PO (13:56)
[2019-08-07] MEDS ORDERED: INSU100V16 SQ (13:56)
[2019-08-07] MEDS ORDERED: ONDN4T PO (13:56)
[2019-08-07] MEDS ORDERED: OLAN5TAB3 PO (13:56)
[2019-08-07] MEDS ORDERED: AMIN887L23 PO (13:56)
[2019-08-07] MEDS ORDERED: MEDR10TA PO (13:56)
--- NOTE | 2019-08-07 14:45 | Physical Therapy Progress Note ---
Therapy Progress Note Patient admitted for seizure like activity. PT chart reviewed patient for history and LOF. Per report, patient has old CVA and was dependent assist with all mobility and ADL's since 2018. This PT called nursing facility where patient resides and RN at facility confirms patient is dependent assist x 2 with all bed mobility and transfers to w/c. Patient is also dependent assist with all ADL's. Patient, at times, is able to feed self at facility per verbal nursing report. PT then consulted with current RN on patient status who reports they are performing bed mobility/repositioning due to patient is flaccid and unable to assist with any movement and states patient is not safe for OOB activity and requires more assistance than they have. PT then consulted with physician on POC, patient PLOF and current LOF. Physician confirms no PT at thi s time. JOCELIN FLORES PT Aug 07, 2019 14:44
--- NOTE | 2019-08-07 14:58 | Occ Therapy Progress Note ---
Therapy Progress Note OT orders received and chart reviewed. Pt admitted for seizure like activity. Pt has had a prior CVA and is dependent with all functional mobility and ADLs since ~2017. This OT talked to RIKY Pastor who called the nursing facility where pt resides, the facility confirms that pt is dependent with all functional mobility/transfers as well as ADLs. At times, pt is able to use his left hand to feed him self. The current RN reports pt is flaccid and unable to assist with any movements at this time. Based on pt's PLOF and current LOF, pt is at baseline, requiring total assistance with all ADLs/functional mobility. No skilled OT services indicated at this time due to pt being at baseline. SHIMA GALLOWAY OT Aug 07, 2019 14:58
[2019-08-07 15:38] VITALS: BP 136/73
[2019-08-07] MEDS: inSUlin ASPART (NovoLOG) 1 UNIT/0.01 ML (CHARGE PER UNIT) SC SCH ×2 (17:23→21:14)
[2019-08-07 20:00] VITALS: BP 132/82
[2019-08-07] MEDS: DIVALPROEX 500 MG DELAYED RELEASE (DEPAKOTE) TAB PO SCH (21:15)
[2019-08-07] MEDS: LEVETIRACETAM 500 MG (KEPPRA) TAB PO SCH (21:15)
[2019-08-07] MEDS: polyethylene glycoL POWDER 17 GM (MIRALAX) PACK PO SCH (21:15)
[2019-08-07] MEDS: OLANZapine 5 MG (ZyPREXA) TAB PO SCH (21:15)
[2019-08-08 00:02] VITALS: BP 146/80
[2019-08-08] MEDS: CEFEPIME 1,000 MG/SWFI 10 ML IV PUSH IV SCH ×8 (00:02→18:50)
[2019-08-08 04:00] VITALS: BP 134/82
[2019-08-08 04:40] LABS: BASOPHILS % (AUTO) 0 % (0-10); EOSINOPHILS # (AUTO) 0.2 10^3/uL (0.0-0.3); EOSINOPHILS % (AUTO) 2 % (0-10); HEMATOCRIT 31 % (40-54); HEMOGLOBIN 9.6 G/DL (13.3-17.7); LYMPHOCYTES # (AUTO) 1.7 X 10^3 (1.0-4.0); LYMPHOCYTES % (AUTO) 18 % (12-44); MEAN CORPUSCULAR HEMOGLOBIN 27 PG (25-34); MEAN CORPUSCULAR HGB CONC 31 G/DL (32-36); MEAN CORPUSCULAR VOLUME 87 FL (80-99); MEAN PLATELET VOLUME 9.9 FL (7.4-10.4); MONOCYTES # (AUTO) 1.2 X 10^3 (0.0-1.0); MONOCYTES % (AUTO) 12 % (0-12); NEUTROPHILS # (AUTO) 6.7 X 10^3 (1.8-7.8); NEUTROPHILS % (AUTO) 68 % (42-75); PLATELET COUNT 169 10^3/uL (130-400); RED CELL DISTRIBUTION WIDTH 16.6 % (10.0-14.5); WHITE BLOOD COUNT 9.8 10^3/uL (4.3-11.0)
[2019-08-08 04:45] LABS: CHLORIDE 111 MMOL/L (98-107); POTASSIUM 3.4 MMOL/L (3.6-5.0); SODIUM 139 MMOL/L (135-145)
[2019-08-08 04:46] LABS: CALCIUM 8.3 MG/DL (8.5-10.1)
[2019-08-08 04:47] LABS: GLUCOSE 109 MG/DL (70-105)
[2019-08-08 04:48] LABS: CARBON DIOXIDE 20 MMOL/L (21-32)
[2019-08-08 04:50] LABS: CREATININE SERUM 0.66 MG/DL (0.60-1.30); GFR ESTIMATED > 60
[2019-08-08 04:51] LABS: BUN/CREATININE RATIO 12
[2019-08-08] MEDS: inSUlin ASPART (NovoLOG) 1 UNIT/0.01 ML (CHARGE PER UNIT) SC SCH ×4 (05:17→21:21)
[2019-08-08] MEDS: PARoxetine 20 MG (PAXIL) TAB PO SCH (09:06)
[2019-08-08] MEDS: OLANZapine 5 MG (ZyPREXA) TAB PO SCH (09:06)
[2019-08-08] MEDS: medroxyPROGESTERone 10 MG (PROVERA) TAB PO SCH (09:06)
[2019-08-08] MEDS: LEVETIRACETAM 500 MG (KEPPRA) TAB PO SCH ×2 (09:06→21:23)
[2019-08-08] MEDS: ASPIRIN E.C. 325 MG (ECOTRIN) TABLET PO SCH (09:06)
[2019-08-08 09:32] VITALS: BP 152/76
--- NOTE | 2019-08-08 12:04 | Progress Note - Hospitalist ---
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 He is unable to provide any meaningful history and can answer some yes or no questions. He denies any pain. He is unable to tell me why he is here. All information is garnered from the chart. Per ER note: "prison staff reported that he has had violent tremors for about 25 minutes prior to EMS arrival. However, he was alert during this episode and was able to answer questions. He does have a history of seizure disorder and takes medications. No fever was noted by the snf, EMS, or on arrival, but he did develop fever shortly after arrival. Patient has severe neurologic deficits from prior stroke. He has right-sided paralysis and has cognitive deficits. He does not carry on meaningful conversations and cannot care for himself. EMS administered Versed 5 mg intranasally to help calm down the tremors. prison staff notes some stage I decubitus ulcers on the ankle and buttock. No obvious external source of infection is known." He has had no further episodes since admission. He was found to have a lactic acidosis and fever though. Subjective/Events-last exam Pt answers yes and no questions. Was quite sleepy when I entered room but work up to physical stimulus. Denied pain. Agreed he was feeling better. Focused Exam Lactate Level 08/06/19 18:00: Lactic Acid Level 2.94*H 08/06/19 20:56: Lactic Acid Level 2.21*H 08/06/19 23:56: Lactic Acid Level 1.52 Objective Exam Vital Signs Vital Signs Date Time Temp Pulse Resp B/P (MAP) Pulse Ox O2 Delivery O2 Flow Rate FiO2 08/08/19 09:32 36.8 91 18 152/76 (101) 100 Room Air Capillary Refill : Less Than 3 Seconds General Appearance: No Apparent Distress, Chronically ill Respiratory: Lungs Clear, No Respiratory Distress Cardiovascular: Regular Rate, Rhythm, No Murmur Genital/Rectal: Other (jones in pace) Neurologic/Psychiatric: Alert, Aphasia Results/Procedures Lab Laboratory Tests 08/08/19 04:05 Patient resulted labs reviewed. Imaging: Reviewed Imaging Report Assessment/Plan Assessment and Plan Assess & Plan/Chief Complaint Severe Sepsis Etiology still unknown, BC NGTD, flu negative, UA clear Continue IV abx as is clinically doing better lactic acidosis resolved Await COVID19 testing Seizure disorder Dementia h/o CVA with deficit Continue home meds PT/OT IDDMII Continue home insulin SSI Diagnosis/Problems Diagnosis/Problems (1) Insulin dependent diabetes mellitus (2) Hypertension (3) Severe sepsis Status: Acute (4) Rigors Status: Acute (5) Ventricular tachycardia Status: Acute (6) Lactic acidosis Status: Acute (7) CVA, old, aphasia Status: Chronic Clinical Quality Measures DVT/VTE Risk/Contraindication: Risk Factor Score Per Nursin RFS Level Per Nursing on Admit: 4+=Very High JUSTINO SANDERS MD Aug 08, 2019 12:04
[2019-08-08] MEDS ORDERED: OLANZapine 5 MG (ZyPREXA) TAB PO PRN (12:15)
[2019-08-08 12:45] VITALS: BP 153/78
[2019-08-08] MEDS ORDERED: INSU100V5 SQ (13:57)
[2019-08-08] MEDS ORDERED: OLAN5TAB25 PO (13:57)
[2019-08-08] MEDS ORDERED: INSU100I14 SQ (13:57)
[2019-08-08] MEDS ORDERED: AMIN887L23 PO (13:57)
[2019-08-08] MEDS ORDERED: LACT20SO2 PO (13:57)
[2019-08-08] MEDS ORDERED: MAGN400O7 PO (13:57)
[2019-08-08] MEDS ORDERED: ONDA-105 PO (13:57)
[2019-08-08] MEDS ORDERED: PARO10TA3 PO (13:57)
[2019-08-08] MEDS ORDERED: MEDR10TA9 PO (13:57)
[2019-08-08] MEDS ORDERED: OLAN10TA19 PO (13:57)
[2019-08-08] MEDS ORDERED: DEXT1DRO7 OU (14:14)
[2019-08-08] MEDS ORDERED: PARO40TA3 PO (14:14)
--- NOTE | 2019-08-08 14:18 | NUR ---
I ENTERED THE MED REC USING THE MEDICATION REVIEW REPORT FROM [facility] [place]
[2019-08-08 18:51] VITALS: BP 124/76
--- NOTE | 2019-08-08 19:12 | Consultation-Cardiology ---
HPI-Cardiology Cardiology Consultation: Date of Consultation 08/08/19 Date of Admission Attending Physician Talita Kelly MD Admitting Physician Gene Cavanaugh MD Consulting Physician Reggie OSWALD MD HPI: Time Seen by a Provider: 18:00 RLN-Vtzmjc-Djzqzp Hx Patient Social History Employed/Student: retired Alcohol Use: Denies Use Recreational Drug Use: Yes Drug of Choice: HX OF METH USE Smoking Status: Former Smoker Type Used: Cigarettes Recent Foreign Travel: No Recent Infectious Disease Expo: No Hospitalization with Isolation: Denies Immunizations Up To Date Date of Pneumonia Vaccine: Nov 07, 2016 Past Medical History PMH As described under Assessment. Family Medical History Family History: Patient reports no known family medical history. Allergies and Home Medications Allergies Coded Allergies: No Known Drug Allergies (Verified , 07/25/07) Home Medications Acetaminophen 325 Mg Tablet, 650 MG PO Q6H PRN for PAIN-MILD OR TEMPATURE, (Reported) Amino Acids/Protein Hydrolys 887 Ml Liquid, 30 ML PO TID, (Reported) Aspirin 325 Mg Tablet.dr, 325 MG PO DAILY, (Reported) Dextran 70/Hypromellose 1 Each Droperette, 2 DROPS OU QID, (Reported) Divalproex Sodium 500 Mg Tablet.dr, 1,000 MG PO HS, (Reported) TAKES 2 (500MG) TABLETS Guaifenesin/Dextromethorphan 118 Ml Liquid, 10 ML PO Q5H PRN for COUGH, (Reported) Insulin Aspart 300 Units/3 Ml Solution, UNITS SQ QIDACHS, (Reported) USES PER SLIDING SCALE 0-150=0 UNITS 151-200=6 UNITS 201-250=8 UNITS 251- 300=10 UNITS 301-350=12 UNITS 351-400=14 UNITS 401-450=16 UNITS IF OVER 450 C ONTACT PCP Insulin Determir 1,000 Units/10 Ml Soln, 18 UNITS SQ BID, (Reported) Lactulose 20 Gm/30 Ml Solution, 30 ML PO BID, (Reported) Levetiracetam 500 Mg Tablet, 500 MG PO BID, (Reported) Mag Hydrox/Aluminum Hyd/Simeth 355 Ml Oral.susp, 30 ML PO Q4H PRN for HEARTBURN, (Reported) Magnesium Hydroxide 400 Mg/5 Ml Oral.susp, 30 ML PO DAILY PRN for CONSTIPATION- 7TH LINE, (Reported) Medroxyprogesterone Acetate 10 Mg Tablet, 10 MG PO DAILY, (Reported) Olanzapine 10 Mg Tablet, 10 MG PO BID, (Reported) Olanzapine 5 Mg Tablet, 5 MG PO DAILY, (Reported) Ondansetron HCl 4 Mg Tablet, 4 MG PO Q4H PRN for NAUSEA/VOMITING-1ST LINE, (Reported) Paroxetine HCl 40 Mg Tablet, 40 MG PO DAILY, (Reported) Polyethylene Glycol 3350 17 Gm Powd.pack, 17 GM PO HS, (Reported) Physical Exam-Cardiology Physical Exam Vital Signs/I&O 08/08/19 08/08/19 08/08/19 08/08/19 09:24 09:32 12:45 13:00 Temp 36.8 36.5 Pulse 91 89 79 Resp 18 20 B/P (MAP) 152/76 (101) 153/78 (103) Pulse Ox 100 96 O2 Delivery Room Air Room Air Room Air 08/08/19 18:51 Temp 36.8 Pulse 79 Resp 20 B/P (MAP) 124/76 (92) Pulse Ox 95 O2 Delivery Room Air 08/08/19 00:00 Intake Total 2440 ml Output Total 1670 ml Balance 770 ml Capillary Refill : Less Than 3 Seconds Skin: normal color, warm/dry Data Review Labs Laboratory Tests 08/07/19 21:13: Glucometer 161H 08/08/19 04:05: White Blood Count 9.8, Red Blood Count 3.57L, Hemoglobin 9.6L, Hematocrit 31L, Mean Corpuscular Volume 87, Mean Corpuscular Hemoglobin 27, Mean Corpuscular Hemoglobin Concent 31L, Red Cell Distribution Width 16.6H, Platelet Count 169, Mean Platelet Volume 9.9, Neutrophils (%) (Auto) 68, Lymphocytes (%) (Auto) 18, Monocytes (%) (Auto) 12, Eosinophils (%) (Auto) 2, Basophils (%) (Auto) 0, Neutrophils # (Auto) 6.7, Lymphocytes # (Auto) 1.7, Monocytes # (Auto) 1.2H, Eosinophils # (Auto) 0.2, Basophils # (Auto) 0.0, Sodium Level 139, Potassium Level 3.4L, Chloride Level 111H, Carbon Dioxide Level 20L, Anion Gap 8, Blood Urea Nitrogen 8, Creatinine 0.66, Estimat Glomerular Filtration Rate > 60, BUN/Creatinine Ratio 12, Glucose Level 109H, Calcium Level 8.3L 08/08/19 13:00: Glucometer 186H 08/08/19 16:25: Glucometer 87 Microbiology 08/06/19 Influenza Types A,B Antigen (OSKAR) - Final, Complete 08/06/19 Blood Culture - Preliminary, Resulted No growth A/P-Cardiology Plan Thank you for your consultation. Please call me if you have any questions. Jerardo Oswald MD, FACP, FACC, FSCAI, FHRS, CCDS Interventional Cardiology Cardiac Electrophysiology Vascular Medicine and Endovascular Interventions Clinical Quality Measures DVT/VTE Risk/Contraindication: Risk Factor Score Per Nursin RFS Level Per Nursing on Admit: 4+=Very High Reggie OSWALD MD Aug 08, 2019 19:12
[2019-08-08 20:00] VITALS: BP 145/80
[2019-08-08] MEDS: polyethylene glycoL POWDER 17 GM (MIRALAX) PACK PO SCH (21:04)
[2019-08-08] MEDS: DIVALPROEX 500 MG DELAYED RELEASE (DEPAKOTE) TAB PO SCH (21:23)
--- NOTE | 2019-08-08 21:56 | NUR ---
PT WILL NOT IS SLEEPING AND WILL NOT WAKE UP TO EAT. MALCOM NOT GIVEN THIS HS.
[2019-08-09] VITALS: BP 134/80
[2019-08-09] MEDS: CEFEPIME 1,000 MG/SWFI 10 ML IV PUSH IV SCH ×6 (00:53→11:28)
[2019-08-09 04:00] VITALS: BP 140/80
[2019-08-09] MEDS: inSUlin ASPART (NovoLOG) 1 UNIT/0.01 ML (CHARGE PER UNIT) SC SCH ×2 (05:28→11:16)
[2019-08-09] MEDS: medroxyPROGESTERone 10 MG (PROVERA) TAB PO SCH (08:02)
[2019-08-09] MEDS: ASPIRIN E.C. 325 MG (ECOTRIN) TABLET PO SCH (08:04)
[2019-08-09] MEDS: PARoxetine 20 MG (PAXIL) TAB PO SCH (08:04)
[2019-08-09] MEDS: LEVETIRACETAM 500 MG (KEPPRA) TAB PO SCH (08:04)
[2019-08-09 08:20] VITALS: BP 136/77
--- NOTE | 2019-08-09 10:25 | Physical Therapy Evaluation ---
PT Evaluation-General Medical Diagnosis Admission Date Aug 06, 2019 at 15:56 Medical Diagnosis: severe sepsis/V-Tach Onset Date: Aug 06, 2019 Therapy Diagnosis Therapy Diagnosis: debility/weakness Height/Weight Height (Feet): 6 Height (Inches): 0.00 Weight (Pounds): 166 Weight (Ounces): 0.0 Precautions Precautions/Isolations: Seizure, Fall Prevention, Standard Precautions, Pressure Ulcer Weight Bear Status Right Lower Extremity: Right Weight Bearing/Tolerated Left Lower Extremity: Left Weight Bearing/Tolerated Referral Physician: William Reason for Referral: Evaluation/Treatment Medical History Pertinent Medical History: Atrial Fib, CVA, DM Additional Medical History drug use (meth)/seizures Current History EMS from OR secondary to seizure activity Reviewed History: Yes Social History Home: Residential Prior Prior Level of Function SCALE: Activities may be completed with or without assistive devices. 5-Ykrkkkncvc-ahjaxxv completes the activity by him/herself with no assistance from a helper. 5-Set-up or Clean-up Assistance-helper sets up or cleans up; patient completes activity. Holt assists only prior to or following the activity. 4-Supervision or Touching Assistance-helper provides verbal cues and/or touching/steadying and/or contact guard assistance as patient completes activity. Assistance may be provided throughout the activity or intermittently. 3-Partial/Moderate Assistance-helper does LESS THAN HALF the effort. Holt lifts, holds or supports trunk or limbs, but provides less than half the effort. 2-Substantial/Maximal Assistance-helper does MORE THAN HALF the effort. Holt lifts or holds trunk or limbs and provides more than half the effort. 1-Tqyfoaaxj-lafqiq does ALL the effort. Patient does none of the effort to complete the activity. Or, the assistance of 2 or more helpers is required for the patient to complete the activity. If activity was not attempted, code reason: 7-Patient Refused. 9-Not Applicable-not attempted and the patient did not perform the activity before the current illness, exacerbation or injury. 10-Not Attempted due to Environmental Limitations-(lack of equipment, weather restraints, etc.). 88-Not Attempted due to Medical Conditions or Safety Concerns. Bed Mobility: 1 Transfers (B,C,W/C): 1 Gait: 9 Stairs: 9 Wheelchair Mobility: 1 Indoor Mobility (Ambulation): Not Applicalbe Stairs: Not Applicalbe Prior Devices Use: Manual wheelchair PT Evaluation-Current Subjective Patient agrees to PT. Objective Patient Orientation: Confused ROM/Strength ROM Lower Extremities noted flexion tone right LE due to old CVA/left LE WFL Strength Lower Extremities left LE 3-/5 grossly/right LE flexion tone Integumentary/Posture Integumentary refer to nursing notes Bowel Incontinence: Yes Bladder Incontinence: Grier Cath Posture trunk flexed posture Neuromuscular (Tone, Coordination, Reflexes) severely retropulsive in sit and stand with increase flexion tone right UE and LE Sensory Vision: Functional Hearing: Functional Sensation Right Lower Extremit: Impaired Sensation Left Lower Extremity: Impaired Transfers Roll Left to Right (QC): 1 Lying to Sitting/Side of Bed(Q: 1 Sit to Stand (QC): 1 Chair/Vdr-bc-Vbejy Xfer(QC): 1 dependent assist x 2 with all mobility with Lola sling place under patient with pad between for protection to return to bed by nursing staff. Gait Does the Patient Walk?: No and Walking Goal NOT indicated Balance Sitting Static: Poor Sitting Dynamic: Poor Standing Static: Poor Standing Dynamic: Poor Assessment/Needs 63 y.o. male, will be seen short term by skilled PT to address bilateral LE ROM and transfer training. Patient resides at OR and is dependent assist of 2 PLOF. Rehab Potential: Guarded PT Short Term Goals Short Term Goals Time Frame: Aug 11, 2019 Roll Left & Right: 1 Sit to lyin Lying to sitting on side of be: 1 Sit to stand: 1 Chair/mls-be-mracn transfer: 1 PT Plan Problem List Problem List: Functional Strength, Balance, Transfer, Bed Mobility, ROM Treatment/Plan Treatment Plan: Continue Plan of Care Treatment Plan: Bed Mobility, Functional Activity Adi, Functional Strength, Therapeutic Exercise, Transfers Treatment Duration: Aug 11, 2019 Frequency: 3 times per week Estimated Hrs Per Day: .25 hour per day Time/GCodes Time In: 940 Time Out: 953 Total Billed Treatment Time: 13 Total Billed Treatment 1 visit EVMod 13 min JOCELIN FLORES PT Aug 09, 2019 10:25
[2019-08-09] MEDS ORDERED: LEVE10006 PO (11:33)
--- NOTE | 2019-08-09 11:35 | Discharge Summary ---
Discharge Summary Reconcile Patient Problems Problems Reviewed?: Yes Hospital Course Hospital Course Date of Admission: Aug 06, 2019 at 15:56 Admission Diagnosis : Severe sepsis Family Physician/Provider: Gene Cavanaugh MD Date of Discharge: 08/09/19 Discharge Diagnosis: Seizures Hospital Course: Patel Limon is a 63-year-old male who presented with tremors and was admitted with severe sepsis. He was started on IV antibiotics. His infectious workup not revealing any infectious source. His tremors were initially thought to be rigors from infection, but this may have been due to seizure activity. He was continued on his valproic acid which was at therapeutic level. His Keppra dose was increased to 1000 mg twice daily. He was tested for COVID and was negative. He was discharged in stable condition back to [facility] with ongoing therapies. Labs and Pending Lab Test: Laboratory Tests 08/08/19 13:00: Glucometer 186H 08/08/19 16:25: Glucometer 87 08/08/19 21:21: Glucometer 103 08/09/19 05:11: Glucometer 85 08/09/19 11:10: Glucometer 169H Microbiology 08/06/19 Influenza Types A,B Antigen (OSKAR) - Final, Complete 08/06/19 Blood Culture - Preliminary, Resulted No growth Home Meds Active Levetiracetam 1,000 Mg Tablet 1,000 Mg PO BID 30 Days Reported Paroxetine HCl 40 Mg Tablet 40 Mg PO DAILY Artificial Tears (Dextran 70/Hypromellose) 1 Each Droperette 2 Drops OU QID Levemir (Insulin Determir) 1,000 Units/10 Ml Soln 18 Units SQ BID Novolog Flexpen (Insulin Aspart) 300 Units/3 Ml Solution Units SQ QIDACHS USES PER SLIDING SCALE 0-150=0 UNITS 151-200=6 UNITS 201-250=8 UNITS 251-300=10 UNITS 301-350=12 UNITS 351-400=14 UNITS 401-450=16 UNITS IF OVER 450 CONTACT PCP Ondansetron HCl 4 Mg Tablet 4 Mg PO Q4H PRN Olanzapine 5 Mg Tablet 5 Mg PO DAILY Olanzapine 10 Mg Tablet 10 Mg PO BID Medroxyprogesterone Acetate 10 Mg Tablet 10 Mg PO DAILY Lactulose 20 Gm/30 Ml Solution 30 Ml PO BID Pro-Stat Max Liquid (Amino Acids/Protein Hydrolys) 887 Ml Liquid 30 Ml PO TID Milk of SummuS Render (Magnesium Hydroxide) 400 Mg/5 Ml Oral.susp 30 Ml PO DAILY PRN Tussin Dm Liquid (Guaifenesin/Dextromethorphan) 118 Ml Liquid 10 Ml PO Q5H PRN Miralax (Polyethylene Glycol 3350) 17 Gm Powd.pack 17 Gm PO HS Maalox Advanced Suspension (Mag Hydrox/Aluminum Hyd/Simeth) 355 Ml Oral.susp 30 Ml PO Q4H PRN Acetaminophen 325 Mg Tablet 650 Mg PO Q6H PRN Divalproex Sodium 500 Mg Tablet. 1,000 Mg PO HS TAKES 2 (500MG) TABLETS Aspirin EC (Aspirin) 325 Mg Tablet. 325 Mg PO DAILY Instructions to Patient/Family Assessment/Instructions Take medications as prescribed. We have increased her dose of Keppra. Follow- up with your primary care physician. Follow Up Appt.: Next long-term rounds [place]illed [facility] [place] [facility] [place] (SNF) I certify that SNF services are required to be given on an inpatient basis vonnie use of the above named patient's need for nursing home care on a continuing basis for the conditions(s) for which he/she was receiving inpatient hospital services prior to his/her transfer to the SNF. Alf Facility Order: Nursing Services, Inventory Control/Shipping Receiving-Evaluate & Treat, Physical Therapy-Evaluate & Treat, Speech Language-Evaluate & Treat Oxygen Delivery Method: Room Air Discharge Diet: Other Diet (Pured with nectar thick liquids) Daily Activity as Tolerated: Yes Resuscitation Status: Do Not Resuscitate Angelic Eller Aug 09, 2019 11:34 Discharge Physical Exam General: Alert, Cooperative, No Acute Distress HEENT: Atraumatic, EOMI, Mucous Memb Moist/[place] Lungs: Clear to Auscultation, Normal Air Movement Heart: Regular Rate, Normal S1, Normal S2, No Murmurs Abdomen: Normal Bowel Sounds, Soft, No Tenderness Extremities: No Edema Psych/Mental Status: Mental Status NL, Mood NL ANGELIC ELLER MD Aug 09, 2019 11:35
--- NOTE | 2019-08-09 15:55 | NUR ---
CM/SS: Pt will be discharged today and return to [facility]. - Information - Discharge orders faxed to [facility]. They can shrimp picker pt today around 1:30pm today.
--- NOTE | 2019-08-13 13:36 | Cardiology Progress Note ---
Cardiology SOAP Progress Note Subjective: LATE ENTRY - PATIENT WAS SEEN ON 08/09/2019 Objective: Weight (Pounds): 166 Weight (Ounces): 0.0 Weight (Calculated Kilograms): 75.665235 Skin: normal color, warm/dry Results/Procedures: Labs Microbiology 08/06/19 Influenza Types A,B Antigen (OSKAR) - Final, Complete 08/06/19 Blood Culture - Final, Complete No growth A/P: Thank you for your consultation. Please call me if you have any questions. Jerardo Oswald MD, FACP, FACC, FSCAI, FHRS, CCDS Interventional Cardiology Cardiac Electrophysiology Vascular Medicine and Endovascular Interventions Reggie OSWALD MD Aug 13, 2019 13:36
== END 2019-08-09 12:45 | DRG 872 ==
LOC: EDUNIT# 13:11 → ER 13:13 → 4TH 15:56
PROVIDERS: ADMIT Internal Medicine; ATTEND Internal Medicine
DX: A41.9 Sepsis, unspecified organism (principal); E87.2 Acidosis; I47.2 Ventricular tachycardia; I69.351 Hemiplegia and hemiparesis following cerebral infarction affecting right dominant side; I42.9 Cardiomyopathy, unspecified; R65.20 Severe sepsis without septic shock; I69.319 Unspecified symptoms and signs involving cognitive functions following cerebral infarction; Z66 Do not resuscitate; G40.909 Epilepsy, unspecified, not intractable, without status epilepticus; I48.91 Unspecified atrial fibrillation; E11.9 Type 2 diabetes mellitus without complications; F22 Delusional disorders; Z20.828 Contact with and (suspected) exposure to other viral communicable diseases; L89.511 Pressure ulcer of right ankle, stage 1; L89.311 Pressure ulcer of right buttock, stage 1; Z95.810 Presence of automatic (implantable) cardiac defibrillator; Z86.19 Personal history of other infectious and parasitic diseases; Z87.891 Personal history of nicotine dependence
CPT/HCPCS: 36415; 71045; 80048; 80053; 80164; 81000; 82550; 82962; 83605; 83735; 84145; 84443; 84484; 85025; 85610; 85730; 86141; 87040; 87635; 87804; 96374; 96375

== ENCOUNTER 2019-11-19 06:47 | Emergency (ER) | payer MEDICARE, MEDICAID ==
[~2019-11-19] VITALS: Ht 172 cm; Wt 81.6 kg
[~2019-11-19 06:47] MED LIST changes: +AMIN887L23 PO; +DEXT1DRO7 OP; +DEXT1DRO7 OU; +INSU100I14 SQ; +INSU100V16 SQ; +INSU100V5 SQ; +LACT20SO2 PO; +LEVE10006 PO; +MAGN400O7 PO; +MEDR10TA PO; +MEDR10TA9 PO; +MOM10U PO; +OLAN10TA19 PO; +OLAN10VI IM; +OLAN5TAB25 PO; +OLAN5TAB3 PO; +ONDA-105 PO; +ONDN4T PO; +PARO10TA3 PO; +PARO40TA3 PO
[2019-11-19] MEDS ORDERED: morphine INJ 10 MG/ML 1ML (SYR OR VIAL) IVP STA ×3 (06:54→07:37)
[2019-11-19] MEDS ORDERED: morphine INJ 10 MG/ML 1ML (SYR OR VIAL) ONE ×2 (06:55→07:01)
--- NOTE | 2019-11-19 07:16 | ED Respiratory ---
General Chief Complaint: Respiratory Problems Stated Complaint: UNRESPONSIVE Source: patient Exam Limitations: no limitations History of Present Illness Date Seen by Provider: Nov 19, 2019 Time Seen by Provider: 06:45 Initial Comments Patient presents to ER by EMS from [facility] in [place] with chief complaint that staff checked on him and he was covered in vomit and was having gurgling breath sounds and difficulty breathing with an oxygen saturation r eported at 19%. EMS put him on nonrebreather and got him up to about 62%. They put him on CPAP after consulting with ER doctor concrete plant laborer which got his oxygen saturation up to the 70% range. Patient was having markedly increased worker breathing and unable to answer questions or communicate in a meaningful way. Patient is known to be a DO NOT RESUSCITATE. This provider did speak to the sister who is also his power of personal injury attorney and neck can and says that he has been having problems with aspiration in the past to the point that he was even on hospice with [facility]. He became septic and output in the hospital and taken off of hospice and apparently never really elected to go back on hospice. She says however it would be concordant with his wishes to be comfort care only and would like to go back of hospice if possible. We discussed intubation deep suctioning and the poor prognosis associated with this aggressive course of therapy given his history and she agreed that this course is futile. She also agreed that it would be appropriate to have comfort care. Allergies and Home Medications Allergies Coded Allergies: No Known Drug Allergies (Verified , 07/25/07) Home Medications Acetaminophen 325 Mg Tablet, 650 MG PO Q6H PRN for PAIN-MILD OR TEMPATURE, (Reported) Amino Acids/Protein Hydrolys 887 Ml Liquid, 30 ML PO TID, (Reported) Aspirin 325 Mg Tablet.dr, 325 MG PO DAILY, (Reported) Dextran 70/Hypromellose 1 Each Droperette, 2 DROPS OU QID, (Reported) Divalproex Sodium 500 Mg Tablet.dr, 1,000 MG PO HS, (Reported) TAKES 2 (500MG) TABLETS Guaifenesin/Dextromethorphan 118 Ml Liquid, 10 ML PO Q5H PRN for COUGH, (Reported) Insulin Aspart 300 Units/3 Ml Solution, UNITS SQ QIDACHS, (Reported) USES PER SLIDING SCALE 0-150=0 UNITS 151-200=6 UNITS 201-250=8 UNITS 251- 300=10 UNITS 301-350=12 UNITS 351-400=14 UNITS 401-450=16 UNITS IF OVER 450 CONTACT PCP Insulin Determir 1,000 Units/10 Ml Soln, 18 UNITS SQ BID, (Reported) Lactulose 20 Gm/30 Ml Solution, 30 ML PO BID, (Reported) Levetiracetam 1,000 Mg Tablet, 1,000 MG PO BID Prescribed by: ANGELIC ELLER on 08/09/19 1133 Mag Hydrox/Aluminum Hyd/Simeth 355 Ml Oral.susp, 30 ML PO Q4H PRN for HEARTBURN, (Reported) Magnesium Hydroxide 400 Mg/5 Ml Oral.susp, 30 ML PO DAILY PRN for CONSTIPATION- 7TH LINE, (Reported) Medroxyprogesterone Acetate 10 Mg Tablet, 10 MG PO DAILY, (Reported) Olanzapine 10 Mg Tablet, 10 MG PO BID, (Reported) Olanzapine 5 Mg Tablet, 5 MG PO DAILY, (Reported) Ondansetron HCl 4 Mg Tablet, 4 MG PO Q4H PRN for NAUSEA/VOMITING-1ST LINE, (Reported) Paroxetine HCl 40 Mg Tablet, 40 MG PO DAILY, (Reported) Polyethylene Glycol 3350 17 Gm Powd.pack, 17 GM PO HS, (Reported) Patient Home Medication List Home Medication List Reviewed: Yes Review of Systems Review of Systems Constitutional: see HPI (review of systems per EMS staff and family.); No chills, No diaphoresis, No fever EENTM: No ear discharge, No ear pain Respiratory: cough, short of breath Gastrointestinal: No abdominal pain; nausea, vomiting All Other Systems Reviewed Negative Unless Noted: Yes Past Hggbaui-Wsxdzl-Cnoabs Hx Patient Social History Alcohol Use: Denies Use Recreational Drug Use: Yes Drug of Choice: HX OF METH USE Smoking Status: Former Smoker Type Used: Cigarettes Recent Hopitalizations: Yes (APRIL 2017 IN [place], AUGUST 2017) Physical Abuse: No Sexual Abuse: No Mistreated: No Fear: No Immunizations Up To Date PED Vaccines UTD: Yes Date of Pneumonia Vaccine: Nov 07, 2016 Seasonal Allergies Seasonal Allergies: No Past Medical History Surgeries: Yes (decubitus ulcer debridement) Abdominal, Defibrillator, Pacemaker Respiratory: Yes Pneumonia Currently Using CPAP: No Currently Using BIPAP: No Cardiac: Yes (LBBB) Atrial Fibrillation, Cardiomyopathy, Hypertension Neurological: Yes (CEREBRAL INFARCTION, RT SIDE WEAKNESS) Parkinson's Disease, Stroke Sexually Transmitted Disease: No HIV/AIDS: No Genitourinary: Yes Kidney Infection, UTI-Chronic Gastrointestinal: Yes (FEEDING TUBE (INSTERTED AND REMOVED)) Gastroesophageal Reflux, Liver Disease/Jaundice Musculoskeletal: Yes (GENERALIZED MUSCLE WEAKNESS/RT SIDE WEAKNESS) Endocrine: Yes Diabetes, Non-Insulin dep HEENT: No Cancer: No Psychosocial: Yes (PARANOID) Integumentary: No Blood Disorders: No (HX OF HEP C) Adverse Reaction/Blood Tranf: No Family Medical History Patient reports no known family medical history. Family, past surgical and medical history obtained from records as patient is unable to answer questions. Physical Exam Capillary Refill : Height: 6'0.00" Weight: 166lbs. 0.0oz. [id number]; 23.73 BMI Method:Estimated General Appearance: WD/WN, no apparent distress Eyes: Bilateral Eye Normal Inspection, Bilateral Eye PERRL, Bilateral Eye EOMI HEENT: pharynx normal (moist with small amount of emesis), other (pu) Respiratory: respiratory distress (severe), accessory muscle use, rales, rhonchi Cardiovascular: normal peripheral pulses, regular rate, rhythm Gastrointestinal: non tender, soft Neurologic/Psychiatric: other (GCS 3) Skin: warm/dry, cyanosis Progress/Results/Core Measures Suspected Sepsis SIRS Temperature: Pulse: Respiratory Rate: Blood Pressure / Mean: Results/Orders Lab Results Laboratory Tests Test 11/19/19 06:54 Range/Units Glucometer 154 H 70-110 MG/DL My Orders Orders - HASMUKH CHATMAN Morphine Injection (Morphine Injection (11/19/19 06:55) Morphine Injection (Morphine Injection (11/19/19 06:54) Morphine Injection (Morphine Injection (11/19/19 07:05) Vital Signs/I&O Capillary Refill : Progress Note : Time: 07:18 Progress Note Understanding the poor prognosis and that this would be futile care and that the patient was a DO NOT RESUSCITATE/DO NOT INTUBATE we did encourage EMS to go ahead and put CPAP on him on route which improved his oxygenation. That gave us some time to talk to family and establish goals of care. After discussing with family and they agree that the further aggressive intervention would be futile and probably just increases discomfort. We ordered 10 mg of morphine IV and after about 5 minutes his respiratory rate had only decreased by about 3 or 4 breaths per minute. Were another 10 mg of IV morphine for comfort and discontinue monitoring. When the monitor was turned off he was having runs of V. tach. Call the half-way to make arrangements to send him back on hospice care. Nursing will call [facility]. He is not expected to survive more than a few hours maybe a day or so at the most. We have him on a high flow oxygen for comfort. Departure Impression Primary Impression: Aspiration pneumonia due to vomit Qualified Codes: J69.0 - Pneumonitis due to inhalation of food and vomit Additional Impressions: Need for comfort care Acute respiratory failure with hypoxia Disposition: HOME, SELF-CARE Condition: Unchanged Departure-Patient Inst. Decision time for Depature: 07:12 Referrals: ROBBIN PINZON MD (PCP/Family) Primary Care Physician Patient Instructions: Aspiration Pneumonia (DC) Add. Discharge Instructions: Contact [facility] hosp[facility] care. Oxygen as needed for air hunger. Morphine as needed for air hunger. Ativan as needed for agitation. All discharge instructions reviewed with patient and/or family. Voiced understanding. HASMUKH CHATMAN Nov 19, 2019 07:16
[2019-11-19] MEDS ORDERED: MORP10SO PO (07:25)
[2019-11-19] MEDS ORDERED: LORA-405 SL (07:25)
--- NOTE | 2019-11-19 07:36 | NUR ---
krystina called for pt transport at this time.
[2019-11-19] MEDS ORDERED: LORazepam INJ 2 MG/ML (ATIVAN) VIAL IVP ONE (07:45)
--- NOTE | 2019-11-19 08:00 | NUR ---
[facility] contacted regarding pt status and progress to transport back to long-term.
[2019-11-19 08:49] VITALS: BP 98/65
== END 2019-11-19 08:49 | disposition home or self-care (01) ==
LOC: EDUNIT# 06:47 → ER 06:48
DX: J69.0 Pneumonitis due to inhalation of food and vomit (principal); J96.01 Acute respiratory failure with hypoxia; E11.9 Type 2 diabetes mellitus without complications; Z95.810 Presence of automatic (implantable) cardiac defibrillator; Z87.891 Personal history of nicotine dependence; Z79.4 Long term (current) use of insulin; Z79.82 Long term (current) use of aspirin
CPT/HCPCS: 82962; 99283